=== PATIENT | female | born 1940 | race Caucasian/White ===

== ENCOUNTER 2022-09-07 16:37 | Emergency (ER) | payer OTHER ==
[2022-09-07 18:24] LABS: Urine Blood Negative (Negative); Urine Glucose Negative (Negative); Urine Protein Negative (Negative); Urine Specific Gravity <=1.005 (1.005-1.030); Urine pH 5.5 (5.0-7.0)
[2022-09-07 18:38] LABS: Absolute Lymphocytes (CBC) 2.8 K/uL (0.7-4.9); Hematocrit 36.8 % (36.0-45.0); Lymphocytes % 28.4 % (15.3-44.8); MCV 87.7 fL (80-100); MPV 7.8 fL (7.6-11.3); RBC Red Blood Cell Count 4.19 M/uL (3.86-4.86)
[2022-09-07 18:50] LABS: Magnesium 1.5 mg/dL (1.8-2.4); Potassium 3.5 mmol/L (3.5-5.1)
[2022-09-07 18:55] LABS: Urine Bacteria >50 /HPF (<20); Urine RBC <5 /HPF (None Seen)
--- NOTE | 2022-09-07 19:09 | RAD REPORT ---
EXAM DESCRIPTION: CT - Head Brain Wo Cont - 09/07/2022 6:47 pm CLINICAL HISTORY: Dizziness COMPARISON: None TECHNIQUE: Computed axial tomography of the head was obtained. IV contrast was not requested. All CT scans are performed using dose optimization technique as appropriate and may include automated exposure control or mA/KV adjustment according to patient size. FINDINGS: An intracranial bleed is not seen . The ventricles are normal in caliber. No extra-axial fluid collection is noted. Mild low-density areas within periventricular, deep and subcortical white matter likely represent isc hemic changes secondary to small vessel disease. Course basal ganglia calcifications are benign Fluid within the sinuses/ mastoids is not seen. IMPRESSION: No acute intracranial abnormality is seen. If patient's symptoms persist MRI of the bra in would be recommended.
--- NOTE | 2022-09-07 19:17 | RAD REPORT ---
EXAM DESCRIPTION: Michele Single View09/07/2022 6:55 pm CLINICAL HISTORY: Chest pain COMPARISON: 2008 FINDINGS: The left lateral costophrenic sulcus is not included in the field of view and is not evalu ated. The visualized lungs appear clear of acute infiltrate. The heart is normal size IMPRESSION: No acute abnormalities displayed
[2022-09-07] MEDS ORDERED: CEFTRIAXONE 1000 MG/VIAL ONE (19:44)
[2022-09-07] MEDS ORDERED: MAGNESIUM SULFATE 1 gm IVPB 1 GM/100 ML BAG IV ONE (19:44)
[2022-09-07] MEDS ORDERED: NA CHLORIDE 0.9% 250 ML ONE (19:44)
--- NOTE | 2022-09-07 20:33 | ER ---
Nurse's Notes [facility] Name: Lorena Canas Age: 82 yrs Sex: Female : 1940 Arrival Date: 09/07/2022 Time: 16:55 Bed 20 Private MD: lAex Garcia C Diagnosis: Dizziness and giddiness;Hypomagnesemia;UTI/ Urinary tract infection, site not specified Presentation: 09/07 17:04 Chief complaint: Patient states: Dr. Garcia sent her over here becausee she has been 5 feeling dizzy on and off x3 days and is a diabetic. Coronavirus screen: Vaccine status: Patient reports receiving the 2nd dose of the covid vaccine. Client denies travel out of the [place] in the last 14 days. At this time, the client does not indicate any symptoms associated with coronavirus-19. Ebola Screen: Patient negative for fever greater than or equal to 101.5 degrees Fahrenheit, and additional compatible Ebola Virus Disease symptoms Patient denies exposure to infectious person. Patient denies travel to an Ebola-affected area in the 21 days before illness onset. Initial Sepsis Screen: Does the patient meet any 2 criteria? No. Patient's initial sepsis screen is negative. Does the patient have a suspected source of infection? No. Patient's initial sepsis screen is negative. Risk Assessment: Do you want to hurt yourself or someone else? Patient reports no desire to harm self or others. Onset of symptoms was September 04, 2022. 17:04 Method Of Arrival: Ambulatory [facility] 17:04 Acuity: RHONDA 3 jh5 Triage Assessment: 17:06 General: Appears in no apparent distress. comfortable, slender, well groomed, well jh5 developed, well nourished, Behavior is calm, cooperative, appropriate for age. Pain: Denies pain. Historical: - Allergies: 17:06 No Known Allergies; jh5 - PMHx: 17:06 Diabetes mellitus; jh5 - PSHx: 17:06 gallbladder; hysterectomy; jh5 - Immunization history:: Adult Immunizations up to date. - Social history:: Smoking status: Patient reports the use of cigarette tobacco products, Patient/guardian denies using tobacco, the patient reports quitting approximately 35 years ago. Screenin:06 Abuse screen: Denies threats or abuse. Nutritional screening: No deficits noted. Tuberculosis screening: No symptoms or risk factors identified. Fall Risk None identified. Assessment: 19:36 General: Appears in no apparent distress. comfortable, Behavior is calm, cooperative. kl Pain: Denies pain. Neuro: No deficits noted. Denies weakness dizziness. Cardiovascular: No deficits noted. Respiratory: No deficits noted. GI: No deficits noted. No signs and/or symptoms were reported involving the gastrointestinal system. : No deficits noted. No signs and/or symptoms were reported regarding the genitourinary system. EENT: No deficits noted. No signs and/or symptoms were reported regarding the EENT system. 19:37 Reassessment: Patient states feeling better. Patient states symptoms have improved. 21:06 Reassessment: Patient appears in no apparent distress at this time. Patient and/or kl family updated on plan of care and expected duration. Pain level reassessed. Patient is alert, oriented x 3, equal unlabored respirations, skin warm/dry/pink. Vital Signs: 17:04 BP 139 / 91; Pulse 77; Resp 16; Temp 97.6; Pulse Ox 100% ; Weight 60.78 kg; Height 5 [facility] ft. 7 in. (170.18 cm); Pain 0/10; 19:12 BP 140 / 68 LA Supine (auto/pedi); Pulse 83 MON; Pulse Ox 100% on R/A; ds4 19:15 BP 141 / 75 LA Sitting (auto/pedi); Pulse 84 MON; Pulse Ox 99% on R/A; ds4 19:22 BP 128 / 62 LA Standing (auto/pedi); Pulse 92 MON; Pulse Ox 97% on R/A; ds4 19:37 BP 124 / 72; Pulse 78; Resp 16; Pulse Ox 99% on R/A; Pain 0/10; kl 21:06 BP 122 / 59; Pulse 72; Resp 18; Pulse Ox 98% on R/A; Pain 0/10; kl 17:04 Body Mass Index 20.99 (60.78 kg, 170.18 cm) [facility] ED Course: 16:55 Patient arrived in ED. am2 16:56 Alex Garcia MD is Private Physician. am2 17:06 Triage completed. [facility] 17:06 Arm band placed on right wrist. [facility] 17:28 Sal Trevino, RN is Primary Nurse. bp 17:40 Page, Dimitri, PA is PHCP. cp 17:40 Dimitri Singleton MD is Attending Physician. cp 18:45 Head Brain Wo Cont Sent. bp 18:45 CT Head Brain wo Cont Sent. bp 18:45 XRAY Chest (1 view) Sent. bp 18:49 Head Brain Wo Cont In Process Unspecified. EDMS 18:57 XRAY Chest (1 view) In Process Unspecified. EDMS 20:31 Alex Garcia MD is Referral Physician. cp 21:09 Patient has correct armband on for positive identification. kl 21:09 No provider procedures requiring assistance completed. IV discontinued, intact, kl bleeding controlled, No redness/swelling at site. Pressure dressing applied. Administered Medications: 19:50 Drug: Rocephin - (cefTRIAXone) 1 grams Route: IVPB; Infused Over: 30 mins; Site: right kl wrist; 19:50 Drug: NS 0.9% 250 ml Route: IV; Rate: bolus; Site: right wrist; kl 20:31 Follow up: IV Status: Completed infusion; IV Intake: 2250ml kl 20:31 Drug: Magnesium Sulfate 1 grams Route: IVPB; Infused Over: 1 hrs; Site: right wrist; kl 21:06 Follow up: IV Status: Completed infusion; IV Intake: 100ml kl Medication: 21:06 VIS not applicable for this client. kl Intake: 20:31 IV: 2250ml; Total: 2250ml. kl 21:06 IV: 100ml; Total: 2350ml. kl Outcome: 20:32 Discharge ordered by MD. cp 21:07 Discharged to home ambulatory. kl 21:07 Condition: improved 21:07 Discharge instructions given to patient, Instructed on discharge instructions, follow up and referral plans. medication usage, Demonstrated understanding of instructions, follow-up care, medications, Prescriptions given X 1. 21:09 Patient left the ED. kl Addendum: 09/10/2022 07:09 Addendum: Culture Results: Positive urine culture. No further action required. Bacteria e b sensitive to prescribed antibiotic. Signatures: Dispatcher [employer] EDMS Frances Joiner RN RN kl Swanson, Donovan ds4 Dimitri Sharma PA PA cp Moreno, Amanda am2 Sal Trevino RN RN bp Lebron, Harika eb Cordell, Tiffanie, RN RN jh5
--- NOTE | 2022-09-07 20:33 | EDPHYS ---
Physician Documentation [facility] Name: Lorena Canas Age: 82 yrs Sex: Female : 1940 Arrival Date: 09/07/2022 Time: 16:55 Bed 20 Private MD: Alex Garcia C ED Physician Dimitri Singleton HPI: 09/07 18:05 This 82 yrs old Female presents to ER via Ambulatory with complaints of Dizziness, cp lightheaded. 18:05 The patient presents with lightheadedness, feeling off balance. Onset: The cp symptoms/episode began/occurred 3 day(s) ago. Context: just prior to the episode the patient experienced no apparent symptoms. Associated signs and symptoms: Pertinent negatives: abdominal pain, chest pain, focal weakness, fever, weakness. Severity of symptoms: in the emergency department the symptoms have improved moderately. Patient's baseline: Neuro: alert and fully oriented, Motor: no deficits, Ambulation: walks without assistance, Speech: normal. 18:05 Patient reports she was referred to ED for evaluation by DR Garcia and to check for cp possible UTI. Historical: - Allergies: 17:06 No Known Allergies; jh5 - PMHx: 17:06 Diabetes mellitus; jh5 - PSHx: 17:06 gallbladder; hysterectomy; 5 - Immunization history:: Adult Immunizations up to date. - Social history:: Smoking status: Patient reports the use of cigarette tobacco products, Patient/guardian denies using tobacco, the patient reports quitting approximately 35 years ago. ROS: 18:10 Constitutional: Negative for body aches, chills, fever, poor PO intake. cp 18:10 Eyes: Negative for injury, pain, redness, and discharge. cp 18:10 ENT: Negative for drainage from ear(s), ear pain, sore throat, difficulty swallowing, difficulty handling secretions. 18:10 Cardiovascular: Negative for chest pain, edema, palpitations. 18:10 Respiratory: Negative for cough, shortness of breath, wheezing. 18:10 Abdomen/GI: Negative for abdominal pain, nausea, vomiting, and diarrhea, constipation, black/tarry stool, rectal bleeding. 18:10 Back: Negative for pain at rest, pain with movement. 18:10 Skin: Negative for cellulitis, rash. 18:10 Neuro: Positive for dizziness, Negative for altered mental status, headache, numbness, syncope, near syncope, weakness. 18:10 All other systems are negative. Exam: 18:15 Constitutional: The patient appears in no acute distress, alert, awake, comfortable, cp non-diaphoretic, non-toxic, well developed, well nourished. 18:15 Head/Face: Normocephalic, atraumatic. cp 18:15 Eyes: Periorbital structures: appear normal, Conjunctiva: normal, no exudate, no injection, Sclera: no appreciated abnormality, Lids and lashes: appear normal, bilaterally. 18:15 ENT: External ear(s): are unremarkable, Nose: is normal, Mouth: Lips: moist, Oral mucosa: pink and intact, moist, Posterior pharynx: Airway: no evidence of obstruction, patent, erythema, is not appreciated, exudate, is not appreciated. 18:15 Neck: ROM/movement: is normal, is supple, without pain, no range of motions limitations, no meningismus, no nuchal rigidity. 18:15 Chest/axilla: Inspection: normal. 18:15 Cardiovascular: Rate: normal, Rhythm: regular, Edema: is not appreciated, JVD: is not appreciated. 18:15 Respiratory: the patient does not display signs of respiratory distress, Respirations: normal, no use of accessory muscles, no retractions, labored breathing, is not present, Breath sounds: are clear throughout, no decreased breath sounds, no stridor, no wheezing. 18:15 Abdomen/GI: Inspection: abdomen appears normal, Palpation: abdomen is soft and non-tender, in all quadrants. 18:15 Back: pain, is absent, ROM is normal. 18:15 Skin: cellulitis, is not appreciated, no rash present. 18:15 Neuro: Orientation: to person, place \T\ time. Mentation: is normal, Cerebellar function: Romberg testing is negative, normal finger to nose testing, heel to lara testing is normal, Motor: moves all fours, strength is normal, Sensation: is normal. 18:30 ECG was reviewed by the Attending Physician. cp Vital Signs: 17:04 BP 139 / 91; Pulse 77; Resp 16; Temp 97.6; Pulse Ox 100% ; Weight 60.78 kg; Height 5 jh5 ft. 7 in. (170.18 cm); Pain 0/10; 19:12 BP 140 / 68 LA Supine (auto/pedi); Pulse 83 MON; Pulse Ox 100% on R/A; ds4 19:15 BP 141 / 75 LA Sitting (auto/pedi); Pulse 84 MON; Pulse Ox 99% on R/A; ds4 19:22 BP 128 / 62 LA Standing (auto/pedi); Pulse 92 MON; Pulse Ox 97% on R/A; ds4 19:37 BP 124 / 72; Pulse 78; Resp 16; Pulse Ox 99% on R/A; Pain 0/10; kl 21:06 BP 122 / 59; Pulse 72; Resp 18; Pulse Ox 98% on R/A; Pain 0/10; kl 17:04 Body Mass Index 20.99 (60.78 kg, 170.18 cm) [facility] MDM: 17:40 Patient medically screened. cp 20:32 Data reviewed: vital signs, nurses notes, lab test result(s), EKG, radiologic studies, cp CT scan, plain films. 20:32 Differential diagnosis: cardiac arrhythmia, CVA, generalized weakness, GI bleed, cp hypovolemia, idiopathic dizziness. Test interpretation: by ED physician or midlevel provider: ECG, plain radiologic studies. Counseling: I had a detailed discussion with the patient and/or guardian regarding: the historical points, exam findings, and any diagnostic results supporting the discharge/admit diagnosis, lab results, radiology results, to return to the emergency department if symptoms worsen or persist or if there are any questions or concerns that arise at home. 20:32 ED course: VSS. Patient appears non-toxic. Will discharge to home for continued cp monitoring. 09/07 17:48 Order name: Basic Metabolic Panel; Complete Time: 19:31 cp 09/07 19:31 Interpretation: Normal except: GLUC 151; BUN 37; GFR 41. cp 09/07 17:48 Order name: CBC with Diff; Complete Time: 19:31 cp 09/07 17:48 Order name: Magnesium; Complete Time: 19:31 cp 09/07 19:32 Interpretation: Abnormal: MG 1.5. cp 09/07 17:48 Order name: Troponin HS; Complete Time: 19:31 cp 09/07 17:48 Order name: Urine Microscopic Only; Complete Time: 19:31 cp 09/07 19:32 Interpretation: Normal except: UWBC 20-50; UBACT >50. cp 09/07 18:24 Order name: Urine Dipstick-Ancillary; Complete Time: 19:31 EDMS 09/07 17:48 Order name: XRAY Chest (1 view); Complete Time: 19:31 cp 09/07 17:48 Order name: EKG; Complete Time: 17:49 cp 09/07 17:48 Order name: CT Head Brain wo Cont cp 09/07 17:53 Order name: Head Brain Wo Cont; Complete Time: 19:31 EDMS 09/07 19:32 Interpretation: Report reviewed. cp 09/07 18:59 Order name: Urine Culture EDMS 09/07 17:48 Order name: Cardiac monitoring; Complete Time: 18:38 cp 09/07 17:48 Order name: EKG - Nurse/Tech; Complete Time: 18:38 cp 09/07 17:48 Order name: IV Saline Lock; Complete Time: 18:38 cp 09/07 17:48 Order name: Labs collected and sent; Complete Time: 18:38 cp 09/07 17:48 Order name: O2 Per Protocol; Complete Time: 18:38 cp 09/07 17:48 Order name: O2 Sat Monitoring; Complete Time: 18:38 cp 09/07 17:48 Order name: Urine Dipstick-Ancillary (obtain specimen); Complete Time: 18:38 cp 09/07 17:48 Order name: Orthostatics; Complete Time: 19:20 cp EC:30 Rate is 80 beats/min. Rhythm is regular. MI interval is prolonged at 200 msec. QRS cp interval is normal. QT interval is normal. T waves are Inverted in leads aVL, aVR. Interpreted by me. Reviewed by me. Administered Medications: 19:50 Drug: Rocephin - (cefTRIAXone) 1 grams Route: IVPB; Infused Over: 30 mins; Site: right kl wrist; 19:50 Drug: NS 0.9% 250 ml Route: IV; Rate: bolus; Site: right wrist; kl 20:31 Follow up: IV Status: Completed infusion; IV Intake: 2250ml kl 20:31 Drug: Magnesium Sulfate 1 grams Route: IVPB; Infused Over: 1 hrs; Site: right wrist; kl 21:06 Follow up: IV Status: Completed infusion; IV Intake: 100ml kl Disposition Summary: 09/07/22 20:32 Discharge Ordered Location: Home cp Problem: new cp Symptoms: have improved cp Condition: Stable cp Diagnosis - Dizziness and giddiness cp - Hypomagnesemia cp - UTI/ Urinary tract infection, site not specified cp Followup: cp - With: Alex Garcia MD - When: 2 - 3 days - Reason: Recheck today's complaints Discharge Instructions: - Discharge Summary Sheet cp - Dizziness cp - Hypomagnesemia cp - Urinary Tract Infection, Adult cp Forms: - Medication Reconciliation Form cp - Thank You Letter cp - Antibiotic Education cp - Prescription Opioid Use cp Prescriptions: - cefpodoxime 200 mg Oral Tablet - take 1 tablet by ORAL route every 12 hours for 7 days with food; 14 tablet; cp Refills: 0, Product Selection Permitted Addendum: 09/12/2022 04:02 Co-signature as Attending Physician, Dimitri Singleton MD I agree with the assessment and c hendrix plan of care. Signatures: Dispatcher [employer] Frances Butler, RN Dimitri Conard MD MD cha Page, Corey, PA PA Tiffanie Howe, RN RN jh5
[2022-09-07 21:14] VITALS: TEMP 97.6
[2022-09-07 21:20] VITALS: BP 122/59; O2SAT 98
--- NOTE | 2022-09-09 16:57 | EKG ---
Test Date: 2022-09-07 Test Time: 18:23:25 Signals Collector/Analyst: BP MEASUREMENT RESULTS: Intervals: Rate: 80 IA: 200 QRSD: 72 QT: 380 QTc: 438 [place]: P: 77 IA: 200 QRS: 62 T: 87 INTERPRETIVE STATEMENTS: Normal sinus rhythm Septal infarct, age undetermined Abnormal ECG Compared to ECG 07/10/2009 01:46:04 Myocardial infarct finding now present Electronically Signed On 09-09-22 16:54:08 CDT by Walker Downey
== END 2022-09-07 21:09 | disposition home or self-care (01) ==
LOC: ER 16:37
DX: N39.0 Urinary tract infection, site not specified (principal); E83.42 Hypomagnesemia; E11.9 Type 2 diabetes mellitus without complications
CPT/HCPCS: 96365; 96367; 93005; 87088; 85025; 87086; 80048; 36415; 83735; 87077; 87186; 84484; 70450; 71045; 96375; 99283; J3475; J7050; 81003; 81015

== ENCOUNTER 2022-09-13 08:00 | Emergency (ER) | payer OTHER ==
--- NOTE | 2022-09-13 09:20 | ER ---
Nurse's Notes [facility] Name: Lorena Canas Age: 82 yrs Sex: Female : 1940 Arrival Date: 09/13/2022 Time: 08:04 Bed 8 Private MD: Diagnosis: Hypoglycemia, unspecified Presentation: 09/13 08:07 Chief complaint: EMS states: Patient arrives via EMS c/o low blood sugar. Per EMS mb8 patient was home alone so she had to have called 911 before her BGL dropped to low. Upon arrival, patient had weakness and slurred speech. After placing 18ga IV in L AC, EMS gave 150ml of D10 and patient symptoms resolved. Patient reports she has not been eating well at home but still taking her insulin. EMS reports family showed up on scene and said patient's glucometers were so they know she has not been checking her BGL. Coronavirus screen: Vaccine status: Patient reports receiving the 2nd dose of the covid vaccine. Ebola Screen: Patient negative for fever greater than or equal to 101.5 degrees Fahrenheit, and additional compatible Ebola Virus Disease symptoms Patient denies exposure to infectious person. Patient denies travel to an Ebola-affected area in the 21 days before illness onset. Initial Sepsis Screen: Does the patient meet any 2 criteria? No. Patient's initial sepsis screen is negative. Does the patient have a suspected source of infection? No. Patient's initial sepsis screen is negative. Risk Assessment: Do you want to hurt yourself or someone else? Patient reports no desire to harm self or others. Onset of symptoms was September 13, 2022. Care prior to arrival: Medication(s) given: d10 150ml IV initiated. 18 GA, in the left antecubital area. 08:07 Method Of Arrival: EMS: [facility] mb8 08:07 Acuity: RHONDA 3 mb8 Triage Assessment: 08:11 General: Appears in no apparent distress. comfortable, Behavior is calm, cooperative, mb8 appropriate for age. Pain: Denies pain. Neuro: No deficits noted. Historical: - Allergies: 08:11 No Known Allergies; mb8 - PMHx: 08:11 diabetes mellitus; mb8 - PSHx: 08:11 GALLBLADDER; hysterectomy; mb8 - Social history:: Smoking status: Patient denies any tobacco usage or history of. Screenin:13 Abuse screen: Denies threats or abuse. Denies injuries from another. Nutritional mb8 screening: No deficits noted. Tuberculosis screening: No symptoms or risk factors identified. Fall Risk No fall in past 12 months (0 pts). Secondary diagnosis (15 points) IV access (20 points). Ambulatory Aid- None/Bed Rest/Nurse Assist (0 pts). Gait- Normal/Bed Rest/Wheelchair (0 pts) Mental Status- Oriented to own ability (0 pts). Total Mccarty Fall Scale indicates Low Risk Score (25-44 pts). Fall prevention measures have been instituted. Side Rails Up X 2 As available Patient and Family Educated on Fall Prevention Program and strategies. Assessment: 08:12 Neuro: Level of Consciousness is awake, alert, obeys commands, Oriented to person, mb8 place, time, situation, Can Line Operator are equal bilaterally Moves all extremities. Full function Gait is steady, Speech is normal, Facial symmetry appears normal, Denies weakness dizziness, difficulty swallowing, numbness headache photophobia diplopia. Cardiovascular: No deficits noted. Denies chest pain, diaphoresis, fatigue, lightheadedness, shortness of breath, Chest pain is denied. Respiratory: No deficits noted. Vital Signs: 08:07 BP 135 / 63; Pulse 78; Resp 16; Temp 97.8; Pulse Ox 100% on R/A; mb8 09:45 BP 119 / 54; Pulse 75; Resp 15; Temp 98; Pulse Ox 100% ; Pain 0/10; mb8 ED Course: 08:04 Patient arrived in ED. rg4 08:06 Erwin Mcdowell RN is Primary Nurse. mb8 08:09 Evgeny Fall DO is Attending Physician. ms3 08:11 Triage completed. mb8 08:12 Arm band placed on. mb8 08:13 Patient has correct armband on for positive identification. Placed in gown. Bed in low mb8 position. Call light in reach. Side rails up X2. Client placed on continuous cardiac and pulse oximetry monitoring. NIBP monitoring applied. alarm security or surveillance monitor on. 08:13 No provider procedures requiring assistance completed. Inserted saline lock: 18 gauge mb8 in left antecubital area, using aseptic technique. ,using aseptic technique. EMS started. 09:19 Alex Garcia MD is Referral Physician. ms3 09:50 IV discontinued, intact, bleeding controlled, No redness/swelling at site. Pressure mb8 dressing applied. Administered Medications: No medications were administered Medication: 08:13 VIS not applicable for this client. mb8 Outcome: 09:20 Discharge ordered by . ms3 09:51 Discharged to home ambulatory, with family. mb8 09:51 Condition: stable 09:51 Discharge instructions given to patient, family, Instructed on discharge instructions, follow up and referral plans. Demonstrated understanding of instructions, follow-up care. 09:52 Patient left the ED. mb8 Signatures: Yoli Cuenca rg4 Evgeny Fall DO DO ms3 Erwin Mcdowell, RN RN mb8 Corrections: (The following items were deleted from the chart) 09:51 09:51 BP 119 / 54; Pulse 75bpm; Resp 15bpm; Pulse Ox 100%; Temp 98F; Pain 0/10; mb8 mb8
--- NOTE | 2022-09-13 09:20 | EDPHYS ---
Physician Documentation [facility] Name: Lorena Canas Age: 82 yrs Sex: Female : 1940 Arrival Date: 09/13/2022 Time: 08:04 Bed 8 Private MD: ED Physician Evgeny Fall HPI: 09/13 09:20 This 82 yrs old Female presents to ER via EMS with complaints of hypoglycemia. ms3 09:20 The patient or guardian reports hypoglycemia. Onset: The symptoms/episode ms3 began/occurred this morning. Associated signs and symptoms: Pertinent positives: Pertinent negatives: nausea, vomiting. Current symptoms: In the emergency department the patient's symptoms have resolved. 82-year-old female presents via EMS for hypoglycemia. On EMS arrival patient's glucose was in the 50s. Patient was administered glucose. Patient's daughter states patient had similar episode yesterday as patient is taking her evening dose of insulin and not eating dinner. At this time patient is without pain. Patient without alleviating or inciting factors.. Historical: - Allergies: 08:11 No Known Allergies; mb8 - PMHx: 08:11 diabetes mellitus; mb8 - PSHx: 08:11 GALLBLADDER; hysterectomy; mb8 - Social history:: Smoking status: Patient denies any tobacco usage or history of. ROS: 09:20 Constitutional: Negative for fever, and chills. Neck: Negative for injury, pain, and ms3 swelling, Cardiovascular: Negative for chest pain, and palpitations. Respiratory: Negative for shortness of breath, cough, wheezing, and pleuritic chest pain, Abdomen/GI: Negative for abdominal pain, nausea, vomiting, diarrhea, and constipation, Skin: Negative for injury, rash, and discoloration. 09:20 All other systems are negative. Exam: 09:20 Constitutional: This is a well developed, well nourished patient who is awake, alert, ms3 and in no acute distress. Head/Face: Normocephalic, atraumatic. Neck: Trachea midline, no cervical lymphadenopathy. Supple, full range of motion without nuchal rigidity, or vertebral point tenderness. No Meningismus. Chest/axilla: Normal chest wall appearance and motion. Nontender with no deformity. Cardiovascular: Regular rate and rhythm with a normal S1 and S2. No gallops, murmurs, or rubs. Normal PMI, no JVD. No pulse deficits. Respiratory: Lungs have equal breath sounds bilaterally, clear to auscultation and percussion. No rales, rhonchi or wheezes noted. No increased work of breathing, no retractions or nasal flaring. Abdomen/GI: Soft, non-tender, with normal bowel sounds. No distension or tympany. No guarding or rebound. No evidence of tenderness throughout. Skin: Warm, dry with normal turgor. Normal color with no rashes, no lesions, and no evidence of cellulitis. MS/ Extremity: Pulses equal, no cyanosis. Neurovascular intact. Full, normal range of motion. Neuro: Awake and alert, GCS 15, oriented to person, place, time, and situation. Cranial nerves II-XII grossly intact. Motor strength 5/5 in all extremities. Sensory grossly intact. Cerebellar exam normal. Normal gait. Psych: Awake, alert, with orientation to person, place and time. Behavior, mood, and affect are within normal limits. Vital Signs: 08:07 BP 135 / 63; Pulse 78; Resp 16; Temp 97.8; Pulse Ox 100% on R/A; mb8 09:45 BP 119 / 54; Pulse 75; Resp 15; Temp 98; Pulse Ox 100% ; Pain 0/10; mb8 MDM: 08:32 Patient medically screened. ms3 09:20 ED course: Discussed case with Dr. Garcia and he will follow patient up in his office. ms3 Informed patient and her daughter that I spoke with Dr. Garcia. Informed her that both Dr. Garcia and I are concerned with patient's safety at home and suggest 24-hour care. Discussed with patient's daughter patient is to discontinue taking insulin and for her to remove insulin and insulin pens from patient's residence. Patient's daughter voices understanding. Patient and her daughter understand and agree with plan. Patient has an appointment made with Dr. Garcia at 515 on Sunday. Patient remains alert and oriented x4, in no apparent distress, nontoxic, ambulatory in the emergency department.. 09:20 Data reviewed: vital signs, nurses notes, lab test result(s), and as a result, I will ms3 discharge patient. Counseling: I had a detailed discussion with the patient and/or guardian regarding: the historical points, exam findings, and any diagnostic results supporting the discharge/admit diagnosis, lab results, the need for outpatient follow up, to return to the emergency department if symptoms worsen or persist or if there are any questions or concerns that arise at home. 09/13 08:16 Order name: Glucose, Ancillary Testing; Complete Time: 08:24 EDMS 09/13 08:20 Order name: Blood Glucose Level; Complete Time: 08:21 mb8 Administered Medications: No medications were administered Disposition Summary: 09/13/22 09:20 Discharge Ordered Location: Home ms3 Condition: Stable ms3 Diagnosis - Hypoglycemia, unspecified ms3 Followup: ms3 - With: Alex Garcia MD - When: Next week - Reason: Re-evaluation by your physician Discharge Instructions: - Discharge Summary Sheet ms3 - Hypoglycemia ms3 Forms: - Medication Reconciliation Form ms3 - Thank You Letter ms3 - Antibiotic Education ms3 - Prescription Opioid Use ms3 Signatures: Evgeny Fall DO DO ms3 Erwin Mcdowell RN RN mb8
[2022-09-13 10:06] VITALS: O2SAT 100
[2022-09-13 10:08] VITALS: BP 119/54; TEMP 98
== END 2022-09-13 09:52 | disposition home or self-care (01) ==
LOC: ER 08:00
DX: E11.649 Type 2 diabetes mellitus with hypoglycemia without coma (principal)
CPT/HCPCS: 82947; 99284

== ENCOUNTER 2022-09-14 08:16 | Emergency (ER) | payer OTHER ==
[2022-09-14 09:02] LABS: Absolute Lymphocytes (CBC) 1.4 K/uL (0.7-4.9); Hematocrit 32.2 % (36.0-45.0); Lymphocytes % 16.2 % (15.3-44.8); MCV 88.7 fL (80-100); RBC Red Blood Cell Count 3.63 M/uL (3.86-4.86)
[2022-09-14 09:16] LABS: Albumin 3.2 g/dL (3.4-5.0); Bilirubin Total 0.4 mg/dL (0.2-1.0); Potassium 3.9 mmol/L (3.5-5.1); Protein, Total 7.2 g/dL (6.4-8.2); Troponin High Sensitivity 8.3 pg/mL (<58.9)
--- NOTE | 2022-09-14 09:27 | ER ---
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 Coronavirus bp screen: At this time, the client does not indicate any symptoms associated with coronavirus-19. Ebola Screen: No symptoms or risks identified at this time. Initial Sepsis Screen: Does the patient meet any 2 criteria? No. Patient's initial sepsis screen is negative. Does the patient have a suspected source of infection? No. Patient's initial sepsis screen is negative. Risk Assessment: Do you want to hurt yourself or someone else? Patient reports no desire to harm self or others. Onset of symptoms is unknown. Care prior to arrival: IV initiated. 18 GA, in the right antecubital area, Glucose check: 44. 08:36 Method Of Arrival: EMS: [facility] bp 08:36 Acuity: RHONDA 3 bp Triage Assessment: 08:37 General: Appears in no apparent distress. comfortable, Behavior is calm, cooperative, bp appropriate for age. Pain: Denies pain. EENT: No deficits noted. Neuro: Level of Consciousness is awake, alert, obeys commands, Oriented to Appropriate for age. Cardiovascular: No deficits noted. Respiratory: No deficits noted. GI: No signs and/or symptoms were reported involving the gastrointestinal system. : No signs and/or symptoms were reported regarding the genitourinary system. Derm: No deficits noted. Musculoskeletal: No deficits noted. Historical: - Allergies: 08:37 No Known Allergies; bp - Home Meds: 08:43 Metformin Oral [Active]; Glimepiride Oral [Active]; losartan oral [Active]; bp - PMHx: 08:37 diabetes mellitus; bp 08:43 Hypertensive disorder; bp - PSHx: 08:37 hysterectomy; GALLBLADDER; bp - Immunization history:: Adult Immunizations up to date. - Social history:: Smoking status: Patient denies any tobacco usage or history of. Screenin:41 Abuse screen: Denies threats or abuse. Denies injuries from another. Nutritional bp screening: No deficits noted. Tuberculosis screening: No symptoms or risk factors identified. Fall Risk None identified. Assessment: 08:41 General: SEE TRIAGE NOTE. bp 10:15 Reassessment: DC ON HOLD FOR IV ABX. bp 11:22 Reassessment: PT DC HOME VIA WC WITH FAMILY. bp Vital Signs: 08:36 BP 123 / 75; Pulse 80; Resp 16; Temp 98.2; Pulse Ox 99% ; bp 08:44 BP 137 / 62; Pulse 88; Resp 16; Pulse Ox 100% ; bp 10:30 BP 132 / 62; Pulse 78; Resp 12; Pulse Ox 100% ; bp 11:22 BP 125 / 59; Pulse 76; Resp 14; Pulse Ox 100% ; bp ED Course: 08:33 Patient arrived in ED. em1 08:35 Dimitri Singleton MD is Attending Physician. felipe 08:36 Sal Trevino, RN is Primary Nurse. bp 08:37 Triage completed. bp 08:37 Arm band placed on. bp 08:41 Patient has correct armband on for positive identification. Bed in low position. Call bp light in reach. Side rails up X2. 08:41 No provider procedures requiring assistance completed. Maintain EMS IV. Dressing bp intact. Good blood return noted. Site clean \T\ dry. Gauge \T\ site: 18 GA R AC. 11:22 IV discontinued, intact, bleeding controlled, No redness/swelling at site. Pressure bp dressing applied. Administered Medications: 10:25 Drug: Rocephin (cefTRIAXone) 1 grams Route: IV; Rate: per protocol; Site: right bp antecubital; 11:24 Follow up: IV Status: Completed infusion; IV Intake: 100ml bp Medication: 08:41 VIS not applicable for this client. bp Intake: 11:24 IV: 100ml; Total: 100ml. bp Outcome: 09:25 Discharge ordered by . felipe 11:22 Discharged to home via wheelchair, with family. bp 11:22 Condition: stable 11:22 Discharge instructions given to patient, family, Instructed on discharge instructions, follow up and referral plans. medication usage, Demonstrated understanding of instructions, follow-up care, medications, Prescriptions given X 1. 11:24 Patient left the ED. bp Signatures: Dimitri Singleton MD MD cha Martinez, Eric em1 Sal Trevino, RN RN bp Corrections: (The following items were deleted from the chart) 08:44 08:37 Home Meds: Unable to obtain; bp bp
--- NOTE | 2022-09-14 09:27 | EDPHYS ---
Physician Documentation [facility] Name: Lorena Canas Age: 82 yrs Sex: Female : 1940 Arrival Date: 09/14/2022 Time: 08:33 Bed 2 Private MD: ED Physician Dimitri Singleton HPI: 09/14 08:50 This 82 yrs old Female presents to ER via EMS with complaints of Low Blood felipe Sugar. 08:50 The patient or guardian reports hypoglycemia, that was potentially precipitated by no felipe particular event. Onset: The symptoms/episode began/occurred just prior to arrival, this morning. Associated signs and symptoms: Pertinent positives: ams. Current symptoms: In the emergency department the patient's symptoms have improved, moderately, is more alert. The patient has experienced similar episodes in the past, a few times. Historical: - Allergies: 08:37 No Known Allergies; bp - Home Meds: 08:43 Metformin Oral [Active]; Glimepiride Oral [Active]; losartan oral [Active]; bp - PMHx: 08:37 diabetes mellitus; bp 08:43 Hypertensive disorder; bp - PSHx: 08:37 hysterectomy; GALLBLADDER; bp - Immunization history:: Adult Immunizations up to date. - Social history:: Smoking status: Patient denies any tobacco usage or history of. ROS: 08:53 Constitutional: Negative for fever, chills, and weight loss, Eyes: Negative for injury, felipe pain, redness, and discharge, ENT: Negative for injury, pain, and discharge, Neck: Negative for injury, pain, and swelling, Cardiovascular: Negative for chest pain, palpitations, and edema, Respiratory: Negative for shortness of breath, cough, wheezing, and pleuritic chest pain, Abdomen/GI: Negative for abdominal pain, nausea, vomiting, diarrhea, and constipation, Back: Negative for injury and pain, : Negative for injury, bleeding, discharge, and swelling, MS/Extremity: Negative for injury and deformity, Skin: Negative for injury, rash, and discoloration, Psych: Negative for depression, anxiety, suicide ideation, homicidal ideation, and hallucinations, Allergy/Immunology: Negative for hives, rash, and allergies, Endocrine: Negative for neck swelling, polydipsia, polyuria, polyphagia, and marked weight changes, Hematologic/Lymphatic: Negative for swollen nodes, abnormal bleeding, and unusual bruising. 08:53 Neuro: Positive for altered mental status. Exam: 08:53 Constitutional: This is a well developed, well nourished patient who is awake, alert, felipe and in no acute distress. Head/Face: Normocephalic, atraumatic. Eyes: Pupils equal round and reactive to light, extra-ocular motions intact. Lids and lashes normal. Conjunctiva and sclera are non-icteric and not injected. Cornea within normal limits. Periorbital areas with no swelling, redness, or edema. ENT: Nares patent. No nasal discharge, no septal abnormalities noted. Tympanic membranes are normal and external auditory canals are clear. Oropharynx with no redness, swelling, or masses, exudates, or evidence of obstruction, uvula midline. Mucous membranes moist. Neck: Trachea midline, no thyromegaly or masses palpated, and no cervical lymphadenopathy. Supple, full range of motion without nuchal rigidity, or vertebral point tenderness. No Meningismus. Chest/axilla: Normal chest wall appearance and motion. Nontender with no deformity. No lesions are appreciated. Cardiovascular: Regular rate and rhythm with a normal S1 and S2. No gallops, murmurs, or rubs. Normal PMI, no JVD. No pulse deficits. Respiratory: Lungs have equal breath sounds bilaterally, clear to auscultation and percussion. No rales, rhonchi or wheezes noted. No increased work of breathing, no retractions or nasal flaring. Abdomen/GI: Soft, non-tender, with normal bowel sounds. No distension or tympany. No guarding or rebound. No evidence of tenderness throughout. Back: No spinal tenderness. No costovertebral tenderness. Full range of motion. Female : Normal external genitalia. Skin: Warm, dry with normal turgor. Normal color with no rashes, no lesions, and no evidence of cellulitis. MS/ Extremity: Pulses equal, no cyanosis. Neurovascular intact. Full, normal range of motion. Neuro: Awake and alert, GCS 15, oriented to person, place, time, and situation. Cranial nerves II-XII grossly intact. Motor strength 5/5 in all extremities. Sensory grossly intact. Cerebellar exam normal. Normal gait. Psych: Awake, alert, with orientation to person, place and time. Behavior, mood, and affect are within normal limits. 08:53 ECG was reviewed by the Attending Physician. Vital Signs: 08:36 BP 123 / 75; Pulse 80; Resp 16; Temp 98.2; Pulse Ox 99% ; bp 08:44 BP 137 / 62; Pulse 88; Resp 16; Pulse Ox 100% ; bp 10:30 BP 132 / 62; Pulse 78; Resp 12; Pulse Ox 100% ; bp 11:22 BP 125 / 59; Pulse 76; Resp 14; Pulse Ox 100% ; bp MDM: 08:35 Patient medically screened. felipe 08:54 Differential diagnosis: hypoglycemic episode. Differential Diagnosis: CVA, electrolyte felipe abnormality, hypoglycemia, TIA, UTI, volume depletion. Data reviewed: vital signs, nurses notes, lab test result(s), EKG. Data interpreted: playground monitor: rate is 88 beats/min, rhythm is regular, Pulse oximetry: on room air is 100 %. Test interpretation: by ED physician or midlevel provider: ECG, plain radiologic studies. Counseling: I had a detailed discussion with the patient and/or guardian regarding: the historical points, exam findings, and any diagnostic results supporting the discharge/admit diagnosis, lab results, the need for outpatient follow up, for definitive care, a family practitioner. 09/14 08:37 Order name: CBC with Diff; Complete Time: 09:14 felipe 09/14 08:37 Order name: Comprehensive Metabolic Panel; Complete Time: 09:25 felipe 09/14 08:37 Order name: Troponin High Sensitivity; Complete Time: 09:25 felipe 09/14 08:40 Order name: glucometer results - FOR PT WITH NO ID; Complete Time: 10:20 bp 09/14 09:56 Order name: Urine Dipstick-Ancillary; Complete Time: 10:20 EDMS 09/14 08:37 Order name: EKG; Complete Time: 08:37 felipe 09/14 08:37 Order name: EKG - Nurse/Tech; Complete Time: 09:04 felipe 09/14 08:37 Order name: Urine Dipstick-Ancillary (obtain specimen); Complete Time: 09:59 felipe 09/14 08:37 Order name: Diet Regular; Complete Time: 08:38 felipe 09/14 09:26 Order name: Misc. Order: GET UA; Complete Time: 09:59 [facility] EC:53 Rate is 86 beats/min. Rhythm is regular. QRS [place] is Normal. [place] interval is normal. QRS felipe interval is normal. QT interval is normal. No Q waves. T waves are Normal. No ST changes noted. Clinical impression: Normal ECG and No evidence of ischemia. Interpreted by me. Reviewed by me. 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 felipe - UTI/ Urinary tract infection, site not specified felipe Followup: felipe - With: Private Physician - When: 2 - 3 days - Reason: Recheck today's complaints, Continuance of care, Re-evaluation by your physician Discharge Instructions: - Discharge Summary Sheet felipe - Hypoglycemia felipe - Blood Glucose Monitoring, Adult felipe - Hypoglycemia, Mszg-vo-Ewan felipe - Urinary Tract Infection, Adult felipe - Urinary Tract Infection, Adult, Clxi-ud-Syal felipe - Preventing Hypoglycemia felipe Forms: - Medication Reconciliation Form felipe - Thank You Letter felipe - Antibiotic Education felipe - Prescription Opioid Use felipe Prescriptions: - Cipro 250 mg Oral Tablet - take 1 tablet by ORAL route every 12 hours; 10 tablet; Refills: 0, Product felipe Selection Permitted Signatures: Dispatcher [employer] Dimitri Dean MD MD cha Peltier, Brian, RN RN bp Corrections: (The following items were deleted from the chart) 08:44 08:37 Home Meds: Unable to obtain; bp bp
[2022-09-14 09:55] LABS: Urine Blood Negative (Negative); Urine Glucose Trace (Negative); Urine Protein Negative (Negative); Urine Specific Gravity <=1.005 (1.005-1.030); Urine pH 5.5 (5.0-7.0)
[2022-09-14] MEDS ORDERED: CEFTRIAXONE 1000 MG/VIAL ONE (10:22)
[2022-09-14] MEDS ORDERED: NA CHLORIDE 0.9% 100 ML IV ONE (10:22)
[2022-09-14 12:05] VITALS: TEMP 98.2
[2022-09-14 12:06] VITALS: O2SAT 100
[2022-09-14 12:09] VITALS: BP 125/59
--- NOTE | 2022-09-14 14:30 | EKG ---
Test Date: 2022-09-14 Test Time: 08:47:52 [employer]: LILI MEASUREMENT RESULTS: Intervals: Rate: 86 TN: 214 QRSD: 70 QT: 358 QTc: 428 [place]: P: 85 TN: 214 QRS: 65 T: 82 INTERPRETIVE STATEMENTS: Sinus rhythm with 1st degree AV block Septal infarct, age undetermined Abnormal ECG Compared to ECG 09/07/2022 18:23:25 First degree AV block now present Myocardial infarct finding still present Electronically Signed On 09-14-22 14:27:58 CDT by Walker Downey
== END 2022-09-14 11:24 | disposition home or self-care (01) ==
LOC: ER 08:16 → SUPCPDRO 08:16 → ER 11:24
DX: E11.649 Type 2 diabetes mellitus with hypoglycemia without coma (principal); N39.0 Urinary tract infection, site not specified; T38.3X5A Adverse effect of insulin and oral hypoglycemic [antidiabetic] drugs, initial encounter; I10 Essential (primary) hypertension
CPT/HCPCS: 36415; 80053; 81003; 82947; 84484; 85025; 93005; 96365; 99283

== ENCOUNTER 2022-09-15 07:12 | Observation (INO) | payer OTHER ==
[2022-09-15 08:05] LABS: Absolute Lymphocytes (CBC) 0.9 K/uL (0.7-4.9); Hematocrit 30.4 % (36.0-45.0); Lymphocytes % 10.6 % (15.3-44.8); MCV 87.4 fL (80-100); MPV 7.5 fL (7.6-11.3); RBC Red Blood Cell Count 3.48 M/uL (3.86-4.86)
[2022-09-15 08:22] LABS: Albumin 3.1 g/dL (3.4-5.0); Bilirubin Total 0.3 mg/dL (0.2-1.0); Potassium 3.6 mmol/L (3.5-5.1); Protein, Total 6.8 g/dL (6.4-8.2)
[2022-09-15 09:45] LABS: Urine Blood Trace-intact (Negative); Urine Glucose Negative (Negative); Urine Protein 1+ (Negative)
[2022-09-15 09:52] LABS: Urine RBC <5 /HPF (None Seen)
--- NOTE | 2022-09-15 09:58 | EDPHYS ---
Physician Documentation [facility] Name: Lorena Canas Age: 82 yrs Sex: Female : 1940 Arrival Date: 09/15/2022 Time: 07:18 Bed 13 Private MD: ED Physician Evgeny Fall HPI: 09/15 08:36 This 82 yrs old Female presents to ER via EMS with complaints of General Weakness. ms3 08:36 82-year-old female presents via [facility] for generalized weakness. Patient was ms3 seen in the emergency department the previous 2 days. Patient was diagnosed with UTI yesterday, hypoglycemia the day prior. EMS states patient presents secondary to generalized weakness. EMS notes patient's glucose to be 68 on their arrival. Patient denies pain. Patient denies alleviating or inciting factors.. Onset: The symptoms/episode began/occurred this morning. Severity of symptoms: At their worst the symptoms were very mild in the emergency department the symptoms are unchanged. The patient has experienced similar episodes in the past. Historical: - Allergies: 14:39 No Known Allergies; db - Home Meds: 07:22 Metformin Oral [Active]; losartan Oral [Active]; Cipro Oral [Active]; Glimepiride Oral db [Active]; pravastatin oral [Active]; - PMHx: 07:22 diabetes mellitus; Hypertensive disorder; Dementia; urinary tract infection; db - PSHx: 07:22 GALLBLADDER; hysterectomy; db - Immunization history:: Adult Immunizations unknown. - Social history:: Smoking status: Patient denies any tobacco usage or history of. ROS: 08:36 Neck: Negative for injury, pain, and swelling, Cardiovascular: Negative for chest pain, ms3 and palpitations. Respiratory: Negative for shortness of breath, cough, wheezing, and pleuritic chest pain, Abdomen/GI: Negative for abdominal pain, nausea, vomiting, diarrhea, and constipation, MS/Extremity: Negative for injury and deformity, Skin: Negative for injury, rash, and discoloration. 08:36 Constitutional: Positive for generalized weakness. 08:36 All other systems are negative. Exam: 08:36 Constitutional: This is a well developed, well nourished patient who is awake, alert, ms3 and in no acute distress. Head/Face: Normocephalic, atraumatic. Neck: Trachea midline, no cervical lymphadenopathy. Supple, full range of motion without nuchal rigidity, or vertebral point tenderness. No Meningismus. Chest/axilla: Normal chest wall appearance and motion. Nontender with no deformity. Cardiovascular: Regular rate and rhythm with a normal S1 and S2. No gallops, murmurs, or rubs. Normal PMI, no JVD. No pulse deficits. Respiratory: Lungs have equal breath sounds bilaterally, clear to auscultation and percussion. No rales, rhonchi or wheezes noted. No increased work of breathing, no retractions or nasal flaring. Abdomen/GI: Soft, non-tender, with normal bowel sounds. No distension or tympany. No guarding or rebound. No evidence of tenderness throughout. Skin: Warm, dry with normal turgor. Normal color with no rashes, no lesions, and no evidence of cellulitis. MS/ Extremity: Pulses equal, no cyanosis. Neurovascular intact. Full, normal range of motion. Vital Signs: 07:19 BP 147 / 64 LA Supine (auto/reg); Pulse 88; Resp 18; Temp 98.5(O); Pulse Ox 100% on db R/A; Weight 49.9 kg; Height 5 ft. 8 in. (172.72 cm); Pain 0/10; 08:45 BP 100 / 48; Pulse 77; Resp 18; Pulse Ox 100% on R/A; db 10:30 BP 140 / 62; Pulse 87; Resp 20; Pulse Ox 100% on R/A; Pain 0/10; db 12:00 BP 131 / 56; Pulse 79; Resp 18; Pulse Ox 100% ; db 07:19 Body Mass Index 16.73 (49.90 kg, 172.72 cm) db MDM: 07:44 Patient medically screened. ms3 09:58 Data reviewed: vital signs, nurses notes, lab test result(s), and as a result, I will ms3 admit patient. Test interpretation: by ED physician or midlevel provider:. Counseling: I had a detailed discussion with the patient and/or guardian regarding: the historical points, exam findings, and any diagnostic results supporting the discharge/admit diagnosis, lab results, the need for further work-up and treatment in the hospital. ED course: Discussed case with Dr Garcia. Patient in the ED for previous 2 days. Patient insulin removed from home, then metformin removed from house. Patient with hypoglycemia despite these interventions. We will place patient in observation to monitor blood glucose levels.. 09/15 07:46 Order name: Urine Microscopic Only; Complete Time: 10:55 ms3 09/15 07:46 Order name: CBC with Diff; Complete Time: 09:09 ms3 09/15 07:46 Order name: CMP; Complete Time: 09:09 ms3 09/15 09:45 Order name: Urine Dipstick-Ancillary; Complete Time: 10:55 EDMS 09/15 09:58 Order name: SARS RAPID; Complete Time: 11:44 ms3 09/15 13:19 Order name: Hemoglobin A1c EDMS Administered Medications: 09:59 CANCELLED (Physician Discretion): D10 in Water [2 mL/kg] 250 ml IVP once 7 10:18 Drug: D50W 50 ml {Note: patient given D10 in 250 due to D50 amp unavailable per db physician.} Route: IVP; Site: right antecubital; 13:49 Follow up: Response: No adverse reaction db Disposition Summary: 09/15/22 09:57 Hospitalization Ordered Hospitalization Status: Observation ms3 Provider: Alex Garcia ms3 Location: Telemetry/MedSurg (observation) ms3 Condition: Stable ms3 Problem: new ms3 Symptoms: are unchanged ms3 Bed/Room Type: Standard ms3 Room Assignment: 209(09/15/22 13:51) eb Diagnosis - Hypoglycemia, unspecified ms3 - Muscle weakness (generalized) ms3 - Dementia in other diseases classified elsewhere without behavioral disturbance ms3 - Essential (primary) hypertension ms3 Forms: - Medication Reconciliation Form ms3 - SBAR form ms3 Signatures: Dispatcher [employer] EDMS Harika Lebron eb Evgeny Fall DO DO ms3 Sona Sears RN RN Liat Nava RN [id number] Corrections: (The following items were deleted from the chart) 09:59 09:55 D10 in Water [2 mL/kg] 250 ml IVP once ordered. ms3 jl7 13:51 09:57 ms3 eb
--- NOTE | 2022-09-15 09:58 | ER ---
Nurse's Notes [facility] Name: Lorena Canas Age: 82 yrs Sex: Female : 1940 Arrival Date: 09/15/2022 Time: 07:18 Bed 13 Private MD: Diagnosis: Hypoglycemia, unspecified;Muscle weakness (generalized);Dementia in other diseases classified elsewhere without behavioral disturbance;Essential (primary) hypertension Presentation: 09/15 07:10 Onset of symptoms was September 15, 2022. db 07:19 Chief complaint: Patient states: states felt weak and difficulty ambulating this AM EMS db states: picked patient up from home with weakness not able to get out of bed. Blood glucose 68. Patient here yesterday with UTI diagnosis and glucose problem. Ebola Screen: Patient negative for fever greater than or equal to 101.5 degrees Fahrenheit, and additional compatible Ebola Virus Disease symptoms Patient denies exposure to infectious person. Patient denies travel to an Ebola-affected area in the 21 days before illness onset. No symptoms or risks identified at this time. Initial Sepsis Screen: Does the patient meet any 2 criteria? No. Patient's initial sepsis screen is negative. Does the patient have a suspected source of infection? No. Patient's initial sepsis screen is negative. Risk Assessment: Do you want to hurt yourself or someone else? Patient reports no desire to harm self or others. 07:19 Method Of Arrival: EMS: [facility] db 07:19 Acuity: RHONDA 3 db 14:15 Coronavirus screen: Vaccine status: Patient reports receiving the 2nd dose of the covid db vaccine. Triage Assessment: 07:22 General: Appears in no apparent distress. comfortable, Behavior is calm, cooperative, db appropriate for age, quiet. Pain: Denies pain. EENT: No deficits noted. No signs and/or symptoms were reported regarding the EENT system. Neuro: No deficits noted. Level of Consciousness is awake, alert, obeys commands, Oriented to person, place, time, situation, Appropriate for age Speech is normal, Facial symmetry appears normal, Reports weakness. Cardiovascular: No deficits noted. Respiratory: No deficits noted. GI: No deficits noted. No signs and/or symptoms were reported involving the gastrointestinal system. : Reports recent diagnosis of UTI. Derm: No deficits noted. No signs and/or symptoms reported regarding the dermatologic system. Musculoskeletal: No deficits noted. No signs and/or symptoms reported regarding the musculoskeletal system. Historical: - Allergies: 14:39 No Known Allergies; db - Home Meds: 07:22 Metformin Oral [Active]; losartan Oral [Active]; Cipro Oral [Active]; Glimepiride Oral db [Active]; pravastatin oral [Active]; - PMHx: 07:22 diabetes mellitus; Hypertensive disorder; Dementia; urinary tract infection; db - PSHx: 07:22 GALLBLADDER; hysterectomy; db - Immunization history:: Adult Immunizations unknown. - Social history:: Smoking status: Patient denies any tobacco usage or history of. Screenin:26 Abuse screen: Denies threats or abuse. Denies injuries from another. Nutritional db screening: No deficits noted. Tuberculosis screening: No symptoms or risk factors identified. Fall Risk None identified. No fall in past 12 months (0 pts). No secondary diagnosis (0 pts). No IV (0 pts). Ambulatory Aid- None/Bed Rest/Nurse Assist (0 pts). Gait- Weak (10 pts.). Mental Status- Overestimates/Forgets Limitations (15 pts.). Total Mccarty Fall Scale indicates Low Risk Score (25-44 pts). Fall prevention measures have been instituted. Side Rails Up X 2 Placed close to Nursing Station. Assessment: 09:50 Reassessment: Patient appears in no apparent distress at this time. provided patient db with sandwich, juice and crackers. 09:56 Reassessment: Assisted patient to bedside commode. Obtained urine specimine. db 10:30 Reassessment: Patient tolerated all sandwich crackers and juice. db 12:15 Reassessment: Patient is alert, oriented x 3, equal unlabored respirations, skin db warm/dry/pink. Patient eating Patient states feeling better. Patient states symptoms have improved. General: Appears in no apparent distress. comfortable, Behavior is calm, cooperative, appropriate for age, quiet. Pain: Denies pain. Neuro: No deficits noted. Level of Consciousness is awake, alert, obeys commands, Oriented to person, place, time, situation, Appropriate for age. Cardiovascular: No deficits noted. Respiratory: No deficits noted. GI: No deficits noted. 13:15 Reassessment: Patient appears in no apparent distress at this time. Patient and/or db family updated on plan of care and expected duration. Pain level reassessed. Patient is alert, oriented x 3, equal unlabored respirations, skin warm/dry/pink. 14:15 Reassessment: Patient appears in no apparent distress at this time. No changes from db previously documented assessment. Patient and/or family updated on plan of care and expected duration. Pain level reassessed. Patient is alert, oriented x 3, equal unlabored respirations, skin warm/dry/pink. Patient states feeling better. Patient states symptoms have improved. Vital Signs: 07:19 BP 147 / 64 LA Supine (auto/reg); Pulse 88; Resp 18; Temp 98.5(O); Pulse Ox 100% on db R/A; Weight 49.9 kg; Height 5 ft. 8 in. (172.72 cm); Pain 0/10; 08:45 BP 100 / 48; Pulse 77; Resp 18; Pulse Ox 100% on R/A; db 10:30 BP 140 / 62; Pulse 87; Resp 20; Pulse Ox 100% on R/A; Pain 0/10; db 12:00 BP 131 / 56; Pulse 79; Resp 18; Pulse Ox 100% ; db 07:19 Body Mass Index 16.73 (49.90 kg, 172.72 cm) db ED Course: 07:18 Patient arrived in ED. db 07:18 Evgeny Fall DO is Attending Physician. ms3 07:18 Sona Sears, RN is Primary Nurse. db 07:22 Triage completed. db 07:26 Arm band placed on right wrist. db 07:45 Maintain EMS IV. Dressing intact. Gauge \T\ site: 20G Right AC. IV is patent, is intact, db Flushed right antecubital with 5 ml normal saline. 07:55 Initial lab(s) drawn, by me, sent to lab. db 09:57 Alex Garcia MD is Hospitalizing Provider. ms3 14:15 Patient has correct armband on for positive identification. Placed in gown. Bed in low db position. Side rails up X 1. 14:15 No provider procedures requiring assistance completed. Patient admitted, IV remains in db place. Administered Medications: 09:59 CANCELLED (Physician Discretion): D10 in Water [2 mL/kg] 250 ml IVP once jl7 10:18 Drug: D50W 50 ml {Note: patient given D10 in 250 due to D50 amp unavailable per db physician.} Route: IVP; Site: right antecubital; 13:49 Follow up: Response: No adverse reaction db Medication: 14:15 VIS not applicable for this client. db Outcome: 09:57 Decision to Hospitalize by Provider. ms3 14:45 Admitted to accompanied by tech. db 14:45 Condition: stable 14:45 Instructed on the need for admit. 14:53 Patient left the ED. eb Signatures: Harika Lebron Marcus, DO DO ms3 Sona Sears, RN RN Liat Nava RN jl7
[2022-09-15] MEDS ORDERED: D10W 250 ML IV ONE (10:18)
[2022-09-15 11:10] LABS: SARS-CoV-2 Antigen Rapid Res Negative (Negative)
[2022-09-15 15:06] VITALS: O2SAT 100
[2022-09-15 15:29] LABS: Folic Acid, (Folate) 12.7 ng/mL (3.1-17.5); Thyroid Stimulating Hormone 1.16 uIU/mL (0.360-3.740)
[2022-09-15 15:32] VITALS: BMI 20.9
[2022-09-15] MEDS ORDERED: INFLUENZA VACCINE (for 6+ mo) 0.5 ML DOSE IMVAC ONE (16:00)
[2022-09-15] MEDS ORDERED: PNEUMOCOCCAL VACCINE 0.5 ML IMVAC ONE (16:00)
[2022-09-15] MEDS ORDERED: levoFLOXacin 500 MG TAB PO ONE (18:44)
[2022-09-15] MEDS ORDERED: LOSARTAN POTASSIUM 50 MG TABLET PO SCH (21:00)
[2022-09-15] MEDS ORDERED: ATORVASTATIN 10 MG TAB PO SCH (21:00)
[2022-09-16 08:27] VITALS: BP 131/61
[2022-09-16] MEDS ORDERED: ASPIRIN EC 81 MG TAB PO SCH (09:00)
[2022-09-16] MEDS ORDERED: levoFLOXacin 500 MG TAB PO SCH (09:00)
[2022-09-16] MEDS ORDERED: AMLODIPINE 5 MG TAB PO SCH (09:00)
[2022-09-16 10:12] VITALS: TEMP 97.7
--- NOTE | 2022-09-17 00:19 | HP ---
Date of Admission: 09/15/2022 Chief Complaint: Confusion. History Of Present Illness: This is an 82-year-old female patient who called the EMS on her own this morning because the patient says that she was scared and disoriented and she did not know what was g oing on, so she called EMS. Her fingerstick blood sugar by EMS was 66. She did not receive any IV g lucose or any oral glucose and she was brought into emergency room. Her blood work in emergency room done showing blood glucose of 50. After patient was evaluated, I was contacted and decided to go ead and admit the patient to hospital as this is her 3rd visit today in last 3 days to emergency room . Last week she was in the emergency room with dizziness and lightheadedness and was diagnosed with urinary tract infection and was discharged to go home with oral antibiotics. In last 3 days, which i s September 13, 2022, she came in with hypoglycemia brewery pumper and at that time, after she was treat ed in the emergency room, she was back to her normal self and she was discharged to go home with inst ruction to discontinue insulin. Yesterday, she came to emergency room with slurred speech and again hypoglycemia and this time once again, after she was to be evaluated and treated in the emergency tawny , she was back to her baseline and she was discharged to go home with instruction to discontinue gli mepiride. After her 3rd presentation in 3 days today to emergency room, decision was made to admit h er to the hospital. The patient's daughter was at bedside. Allergies: SHE IS ALLERGIC TO ENALAPRIL CAUSING COUGH, PENICILLIN CAUSING RASH, AND PROPOXYPHENE CAU SING STOMACH UPSET. Medications: Amlodipine 5 mg daily; aspirin 81 mg daily; vitamin D3 1000 units daily; glimepiride an d Levemir insulin, both were discontinued recently in last 2 days; losartan 50 mg daily; metformin 50 0 mg, she takes 2 tablets 2 times a day; pravastatin 20 mg daily in the evening; vitamin B12 1 mg adali ly. Review of Systems: COFFEE BLENDER: As mentioned above, significant for disorientation and patient has increasing memory problem an d I am concerned about underlying dementia problem, which so far has not been diagnosed, but on clini georgie basis she unfortunately has signs and symptoms of dementia. Past Medical History: Type 2 diabetes mellitus, hypertension, mixed hyperlipidemia, diverticulosis, and depression. 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 Family History: Father had abdominal aortic aneurysm. Mother had diabetes. Brother had diabetes an d hyperlipidemia. Social History: Prior history of smoking, not at present time. Use of alcohol is negative. Physical Examination: Vital Signs: Temperature 98.5, pulse 88, respiratory rate 18, blood pressure 147/64, oxygen saturati on 100%, height 5 feet 7 inches, weight 133 pounds. General: Awake, alert, oriented, not in distress. HEENT: Head atraumatic, normocephalic. Conjunctivae nonerythematous. Sclerae white. Mouth, no thr ush or edema noted. Ears/Nose, no mass, lesion, discharge noted. Neck: Supple. No JVD, lymph nodes, bruit, thyromegaly noted. Lungs: Bilateral good equal air entry. Clear to auscultation. No rhonchi. No rales. Heart: Normal heart sounds, no murmur or gallop. Abdomen: Soft, bowel sounds normal. No guarding, rigidity, tenderness, mass, hepatosplenomegaly, dis tention, or bruit noted. Extremities: No leg edema. No calf tenderness. Skin: No rash, ulcer, cellulitis. Lymphatics: No lymph node enlargement in neck, supraclavicular, infraclavicular region. Neuro: No focal neurological deficit. Chest: Unremarkable. External Genitalia: Deferred. Rectal: Deferred. Laboratory Data: White count 8.7, hemoglobin 10.6, platelets 238. Sodium 138, potassium 3.6, chlori de 106, bicarb 25, BUN 30, creatinine 0.74, glucose 50. Liver function tests unremarkable. Hemoglob in A1c done today 7.5. Vitamin B12 281. Folic acid level 12.7. TSH 1.16. Urinalysis with 1+ elisa ase, otherwise negative. COVID-19 test negative. Impression: 1.Hypoglycemia. 2.Type 2 diabetes mellitus. 3.Hypertension. 4.Mixed hyperlipidemia. 5.Diverticulosis. 6.Depression. 7.Senile dementia. Plan: Admit patient to hospital for further evaluation and management of this problem. The patient is appropriate for observation. We will go ahead and continue her home medications per order. We wi ll not give any diabetic medications. We will monitor fingerstick blood sugar, but we will not give any sliding scale insulin. I will see her again tomorrow morning for followup. Patient lives at [facility] by herself and I had a long discussion with the patient's daughter today and she informed me that t he patient does not have option of living with daughter, so she will have to continue to stay at home and the patient refuses to go to [facility]p. So, right now, the patient does not have any other o ption except to stay at home. I talked with the daughter and informed her that she should make arran gements for care provider services, especially at night time so provider can be with the patient arou nd the evening meal time and make sure that she eats her evening meal, takes her evening medications and during nighttime provider to stay with the patient and in the morning after they give breakfast a nd morning medications, provider may leave and the patient's daughter will check on her during day ti me. The patient's daughter understands and agrees with this plan and she is going to make arrangemen ts for care provider services utilizing local agency help. I have also informed the patient, in pres ence of her daughter today, that in view of her significant memory decline, I am concerned about her safety while driving and considering her safety and other people's safety in mind, she was instructed not to drive car anymore and the patient's daughter was present during this discussion and she under stands and agrees with that recommendation as well. FRANK/MODL Voice ID: [id number]
--- NOTE | 2022-09-17 05:20 | DS ---
Date of Discharge: 09/16/2022 Disposition: Discharged to go home. Physical Examination: HEENT: Unremarkable. Lungs: Clear to auscultation. Heart: Sounds normal. Abdomen: Soft. Bowel sounds normal. No guarding, rigidity, tenderness, distention. Extremities: No leg edema. Discharge Medications And Instructions: 1.Continue all prior home medication except do not take any insulin, glimepiride, and metformin. 2.Follow up at my office a week after next. Laboratory Data: COVID-19 test negative. Urinalysis 1+ leukocyte esterase, otherwise negative. Sod ium 138, potassium 3.6, chloride 106, bicarb 25, BUN 30, creatinine 0.74, glucose 50. Hemoglobin A1c 7.5. Liver function tests unremarkable. Vitamin B12 of 281, folic acid 12.7, TSH 1.16. Fingerstic k blood sugar readings reviewed. After the patient was admitted to the hospital and after initial lo w glucose when she first came to emergency room, she has not had any more hypoglycemia problem. Last blood sugar this morning was 172 before breakfast this morning. Final Diagnoses: 1.Hypoglycemia. 2.Anemia, unspecified. 3.Type 2 diabetes mellitus. 4.Hypertension. 5.Mixed hyperlipidemia. 6.Diverticulosis. 7.Depression. Hospital Course: This is an 82-year-old very pleasant female patient who was admitted to the [facility] after she came into emergency room. Please see dictated H and P for more information. Patient had hypoglycemia when she presented to emergency room, which was corrected and subsequently she was admi tted to the hospital. We monitored fingerstick blood sugar readings and she has not had any further hypoglycemia problem while she was in the hospital. Her highest glucose level was 196 and lowest lev el was 172 this morning. I did talk to patient and patient's daughter this morning and informed her that she should not take any diabetes medication at all and in the future if we need to start a diabe ginny medication, we will consider to do so. Patient is showing signs and symptoms of dementia problem . She has appointment to see a neurologist in October. As she did not keep prior appointments to [facility], so first available appointment now is October and she will keep that appointment. Marya nwhile, she continues to live at home by herself. She does not have option to live with daughter and she does not want to go to [facility], so daughter is going to make arrangements for care provider services where care provider can be present with her during nighttime and I did inform patient's kendra ghter and patient that all medication should be managed by the patient's daughter and she will keep t hose medications in pill boxes and caregiver will assist with medication adherence. I have also info rmed the patient not to drive her car, keeping in mind the safety of others as well as her own safety . Patient was discharged to go home in stable condition today. FRANK/MODL Voice ID: [id number] Report ID: [id number]
== END 2022-09-16 10:27 | disposition home or self-care (01) ==
LOC: ER 07:12 → ERHOLD 10:15 → 2ND 14:42
PROVIDERS: ADMIT Internal Medicine; ATTEND Internal Medicine
DX: E11.649 Type 2 diabetes mellitus with hypoglycemia without coma (principal); D64.9 Anemia, unspecified; I10 Essential (primary) hypertension; E78.2 Mixed hyperlipidemia; K57.90 Diverticulosis of intestine, part unspecified, without perforation or abscess without bleeding; F32.A Depression, unspecified; Z79.84 Long term (current) use of oral hypoglycemic drugs; Z79.4 Long term (current) use of insulin; Z79.82 Long term (current) use of aspirin; Z79.899 Other long term (current) drug therapy; Z88.0 Allergy status to penicillin; Z88.8 Allergy status to other drugs, medicaments and biological substances; Z87.891 Personal history of nicotine dependence; Z90.49 Acquired absence of other specified parts of digestive tract; Z90.710 Acquired absence of both cervix and uterus; Z83.3 Family history of diabetes mellitus
CPT/HCPCS: 85025; 36415; 82947 ×3; 84443; 83036; 82746; 82607; 80053; 96374; 99285; 87811; G0378 ×3; 81003; 81015

== ENCOUNTER 2022-12-15 14:07 | Emergency (ER) | payer OTHER ==
[2022-12-15] MEDS ORDERED: NA CHLORIDE 0.9% 500 ML ONE ×2 (14:52→17:17)
[2022-12-15 14:53] LABS: Absolute Lymphocytes (CBC) 1.5 K/uL (0.7-4.9); Hematocrit 36.3 % (36.0-45.0); Lymphocytes % 23.2 % (15.3-44.8); MCV 89.8 fL (80-100); RBC Red Blood Cell Count 4.04 M/uL (3.86-4.86)
[2022-12-15 15:19] LABS: ALT/SGPT 20 U/L (13-56); AST/SGOT 19 U/L (15-37); Albumin 3.5 g/dL (3.4-5.0); Alkaline Phosphatase 207 U/L (45-117); BUN Blood Urea Nitrogen 22 mg/dL (7-18); Bicarbonate 27 mmol/L (21-32); Bilirubin Total 0.6 mg/dL (0.2-1.0); Glomerular Filtration Rate 47 ml/min (=/>90); Lipase 222 U/L (73-393); Potassium 4.2 mmol/L (3.5-5.1); Sodium Level 130 mmol/L (136-145)
[2022-12-15 15:27] LABS: Glucose Level 703 mg/dL (74-106)
[2022-12-15] MEDS ORDERED: INSULIN -REGULAR HUMAN 50 UNIT/0.5 ML ML ONE (15:49)
[2022-12-15 18:07] LABS: Urine Blood Trace-lysed (Negative); Urine Glucose 2+ (Negative); Urine Protein Negative (Negative); Urine Specific Gravity 1.015 (1.005-1.030)
[2022-12-15 18:28] LABS: Urine Bacteria None Seen /HPF (<20); Urine Mucus Slight /HPF (None Seen); Urine RBC <5 /HPF (None Seen)
[2022-12-15] MEDS ORDERED: cloNIDine HCL 0.1 MG TAB ONE (18:36)
[2022-12-15 20:29] LABS: Potassium 3.1 mmol/L (3.5-5.1)
--- NOTE | 2022-12-15 20:36 | EDPHYS ---
Physician Documentation [facility] Name: Lorena Canas Age: 82 yrs Sex: Female : 1940 Arrival Date: 12/15/2022 Time: 14:10 Bed 2 Private MD: Alex Garcia C ED Physician Elver Vallecillo HPI: 12/15 14:30 This 82 yrs old Female presents to ER via Ambulatory with complaints of High Blood snw Sugar. 14:30 The patient or guardian reports hyperglycemia. Onset: The symptoms/episode snw began/occurred acutely. It is unknown whether or not the patient has had similar symptoms in the past. sees Dr. Garcia, taken off medications for DM as pt was not consistent with caloric intake.. Historical: - Allergies: 14:19 No Known Allergies; hb - Home Meds: 14:19 aspirin 81 mg Oral TbEC 1 tab once daily [Active]; Razadyne ER 8 mg oral C24P 2 caps hb once daily [Active]; - PMHx: 14:19 Dementia; diabetes mellitus; Hypertensive disorder; urinary tract infection; hb - PSHx: 14:19 GALLBLADDER; hysterectomy; hb - Immunization history:: Adult Immunizations up to date. - Social history:: Smoking status: Patient denies any tobacco usage or history of. ROS: 14:30 Constitutional: Negative for fever, chills, and weight loss, Eyes: Negative for injury, snw pain, redness, and discharge, ENT: Negative for injury, pain, and discharge, Neck: Negative for injury, pain, and swelling, Cardiovascular: Negative for chest pain, palpitations, and edema, Respiratory: Negative for shortness of breath, cough, wheezing, and pleuritic chest pain, Abdomen/GI: Negative for abdominal pain, nausea, vomiting, diarrhea, and constipation, Back: Negative for injury and pain, : Negative for injury, bleeding, discharge, and swelling, MS/Extremity: Negative for injury and deformity, Skin: Negative for injury, rash, and discoloration, Neuro: Negative for headache, weakness, numbness, tingling, and seizure, Psych: Negative for depression, anxiety, suicide ideation, homicidal ideation, and hallucinations. Exam: 14:29 Constitutional: This is a well developed, well nourished patient who is awake, alert, snw and in no acute distress. Head/Face: Normocephalic, atraumatic. Eyes: Pupils equal round and reactive to light, extra-ocular motions intact. Lids and lashes normal. Conjunctiva and sclera are non-icteric and not injected. Cornea within normal limits. Periorbital areas with no swelling, redness, or edema. ENT: Nares patent. No nasal discharge, no septal abnormalities noted. Tympanic membranes are normal and external auditory canals are clear. Oropharynx with no redness, swelling, or masses, exudates, or evidence of obstruction, uvula midline. Mucous membranes moist. Neck: Trachea midline, no thyromegaly or masses palpated, and no cervical lymphadenopathy. Supple, full range of motion without nuchal rigidity, or vertebral point tenderness. No Meningismus. Chest/axilla: Normal chest wall appearance and motion. Nontender with no deformity. No lesions are appreciated. Cardiovascular: Regular rate and rhythm with a normal S1 and S2. No gallops, murmurs, or rubs. Normal PMI, no JVD. No pulse deficits. Respiratory: Lungs have equal breath sounds bilaterally, clear to auscultation and percussion. No rales, rhonchi or wheezes noted. No increased work of breathing, no retractions or nasal flaring. Abdomen/GI: Soft, non-tender, with normal bowel sounds. No distension or tympany. No guarding or rebound. No evidence of tenderness throughout. Back: No spinal tenderness. No costovertebral tenderness. Full range of motion. Skin: Warm, dry with normal turgor. Normal color with no rashes, no lesions, and no evidence of cellulitis. MS/ Extremity: Pulses equal, no cyanosis. Neurovascular intact. Full, normal range of motion. Neuro: Awake and alert, GCS 15, oriented to person, place, time, and situation. Cranial nerves II-XII grossly intact. Motor strength 5/5 in all extremities. Sensory grossly intact. Cerebellar exam normal. Normal gait. Psych: Awake, alert, with orientation to person, place and time. Behavior, mood, and affect are within normal limits. Vital Signs: 14:17 BP 164 / 69; Pulse 80; Resp 16; Temp 98.4; Pulse Ox 100% on R/A; Weight 74.84 kg; hb Height 5 ft. 11 in. (180.34 cm); Pain 0/10; 16:00 BP 162 / 71; Pulse 93; Resp 18 S; Pulse Ox 100% on R/A; Pain 0/10; kc6 16:40 BP 158 / 70; Pulse 75; Pulse Ox 100% on R/A; ap3 17:15 BP 162 / 72; Pulse 69; Resp 14 S; Pulse Ox 100% on R/A; Pain 0/10; kc6 18:15 BP 181 / 82; Pulse 70; Resp 16 S; Pulse Ox 100% on R/A; Pain 0/10; kc6 18:56 BP 180 / 86; Pulse 80; Resp 20 S; Pulse Ox 100% on R/A; kc6 19:48 Pulse 68; Resp 18; Pulse Ox 99% ; vc1 20:37 BP 119 / 63; vc1 14:17 Body Mass Index 23.01 (74.84 kg, 180.34 cm) hb MDM: 14:24 Patient medically screened. snw 14:31 Differential diagnosis: diabetes insipidus, DKA, hyperglycemia, infection. Data snw reviewed: vital signs, nurses notes. Historians other than the Patient: Family Member: Daughter and Son In Law. ED course: Daughter concerned for UTI. 20:33 Counseling: I had a detailed discussion with the patient and/or guardian regarding: the snw historical points, exam findings, and any diagnostic results supporting the discharge/admit diagnosis, the presence of at least one elevated blood pressure reading (>120/80) during this emergency department visit, lab results, the need for outpatient follow up, for definitive care, to return to the emergency department if symptoms worsen or persist or if there are any questions or concerns that arise at home. Response to treatment: the patient's symptoms have markedly improved after treatment. Special discussion: Based on the history and exam findings, there is no indication for further emergent testing or inpatient evaluation. I discussed with the patient/guardian the need to see the primary care provider for further evaluation of the symptoms. 12/15 14:25 Order name: Glucose hb 12/15 14:26 Order name: CBC with Diff; Complete Time: 15:27 snw 12/15 14:26 Order name: CMP; Complete Time: 15:28 snw 12/15 14:26 Order name: Lipase; Complete Time: 15: snw 12/15 14:26 Order name: Urine Microscopic Only; Complete Time: 18:30 snw 12/15 14:26 Order name: Acetone, Serum; Complete Time: 15:28 w 12/15 14:26 Order name: Blood Culture Adult (2) w 12/15 14:26 Order name: Urine Culture 12/15 14:34 Order name: Glucose, Ancillary Testing; Complete Time: 14:41 EDMS 12/15 17:09 Order name: Glucose, Ancillary Testing; Complete Time: 17:24 EDMS 12/15 18:08 Order name: Urine Dipstick-Ancillary; Complete Time: 18:28 EDMS 12/15 18:25 Order name: Glucose, Ancillary Testing; Complete Time: 18:28 EDMS 12/15 18:31 Order name: Chem 7; Complete Time: 20:32 snw 12/15 14:26 Order name: IV Saline Lock; Complete Time: 14:47 w 12/15 14:26 Order name: Labs collected and sent; Complete Time: 14:47 w 12/15 15:42 Order name: FSBS: hourly; Complete Time: 16:10 w 12/15 20:33 Order name: Recheck B/P; Complete Time: 20:37 snw Administered Medications: 15:02 Drug: NS 0.9% 500 ml Route: IV; Rate: bolus; Site: right antecubital; kc6 16:10 Follow up: Response: No adverse reaction; IV Status: Completed infusion; IV Intake: kc6 500ml 15:50 Drug: Insulin Regular Human 5 units {Co-Signature: kc6 (Hyun Armendariz RN).} Route: ap3 Sub-Q; Site: right upper arm; 15:51 Drug: Insulin Regular Human 5 units {Co-Signature: kc6 (Hyun Armendariz RN).} Route: ap3 IVP; Site: right antecubital; 17:18 Drug: NS 0.9% 500 ml Route: IV; Rate: bolus; Site: right antecubital; kc6 18:35 Drug: cloNIDine 0.1 mg Route: PO; kc6 20:55 Drug: Potassium Effervescent Tablet 50 mEq Route: PO; vc1 Point of Care Testin:22 HI hb Ranges: Critical Glucose Levels:Adult <50 mg/dl or >400 mg/dl <40 mg/dl or >180 mg/dl Disposition Summary: 12/15/22 20:35 Discharge Ordered Location: Home snw Condition: Stable snw Diagnosis - Diabetes mellitus due to underlying condition with hyperglycemia snw - Hypokalemia snw Followup: snw - With: Emergency Department - When: As needed - Reason: Worsening of condition Followup: snw - With: Alex Garcia MD - When: 2 - 3 days - Reason: Recheck today's complaints, Continuance of care, Re-evaluation by your physician Discharge Instructions: - Discharge Summary Sheet snw - Potassium Content of Foods snw - Hyperglycemia snw - Form - Daily Diabetes Record snw - Blood Glucose Monitoring, Adult snw - Diabetes Mellitus and Nutrition, Adult snw - Hypokalemia snw Forms: - Medication Reconciliation Form snw - Thank You Letter snw - Antibiotic Education snw - Prescription Opioid Use snw Signatures: Dispatcher [employer] EDMS Cris Ca, CONTROL SPECIALIST-C CONTROL SPECIALIST-Csnw Suzy Vu RN RN Shannon Ellis RN RN ap3 Beulah Grant RN RN vc1 Hyun Armendariz RN RN kc6 Hyun Armendariz RN kc6
--- NOTE | 2022-12-15 20:36 | ER ---
Nurse's Notes [facility] Name: Lorena Canas Age: 82 yrs Sex: Female : 1940 Arrival Date: 12/15/2022 Time: 14:10 Bed 2 Private MD: Alex Garcia C Diagnosis: Diabetes mellitus due to underlying condition with hyperglycemia;Hypokalemia Presentation: 12/15 14:17 Chief complaint: Daughter reports Dr. Garcia discontinued her insulin and metformin 2 hb months ago, home BGL today was 568. Pt reports "I feel fine but I have been very stressed lately.". Coronavirus screen: At this time, the client does not indicate any symptoms associated with coronavirus-19. Ebola Screen: No symptoms or risks identified at this time. Initial Sepsis Screen: Does the patient meet any 2 criteria? No. Patient's initial sepsis screen is negative. Does the patient have a suspected source of infection? No. Patient's initial sepsis screen is negative. Risk Assessment: Do you want to hurt yourself or someone else? Patient reports no desire to harm self or others. Onset of symptoms was December 15, 2022. 14:17 Method Of Arrival: Ambulatory hb 14:17 Acuity: RHONDA 2 hb Historical: - Allergies: 14:19 No Known Allergies; hb - Home Meds: 14:19 aspirin 81 mg Oral TbEC 1 tab once daily [Active]; Razadyne ER 8 mg oral C24P 2 caps hb once daily [Active]; - PMHx: 14:19 Dementia; diabetes mellitus; Hypertensive disorder; urinary tract infection; hb - PSHx: 14:19 GALLBLADDER; hysterectomy; hb - Immunization history:: Adult Immunizations up to date. - Social history:: Smoking status: Patient denies any tobacco usage or history of. Screenin:19 [facility] ED Fall Risk Assessment (Adult) History of falling in the last 3 months, kc6 including since admission No falls in past 3 months (0 pts) Confusion or Disorientation No (0 pts) Intoxicated or Sedated No (0 pts) Impaired Gait No (0 pts) Mobility Assist Device Used No (0 pt) Altered Elimination No (0 pt) Score/Fall Risk Level 0 - 2 = Low Risk Oriented to surroundings, Maintained a safe environment, Educated pt \\T\\ family on fall prevention, incl call for assistance when getting out of bed, Assessed \\T\\ reinforced patient's understanding of fall precautions, Hourly rounding (assess needs \\T\\ fall precautionary measures) done. Abuse screen: Denies threats or abuse. Denies injuries from another. Nutritional screening: No deficits noted. Tuberculosis screening: No symptoms or risk factors identified. 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 hb 14:30 General: Appears in no apparent distress. comfortable, Behavior is calm, cooperative, kc6 appropriate for age. Pain: Denies pain. Neuro: Roman Agitation-Sedation Scale (RASS): 0 - Alert and Calm Level of Consciousness is awake, alert, obeys commands, Oriented to person, place, time, situation, Appropriate for age. Cardiovascular: Capillary refill < 3 seconds. Respiratory: Airway is patent Trachea midline Respiratory effort is even, unlabored, Respiratory pattern is regular, symmetrical. GI: No signs and/or symptoms were reported involving the gastrointestinal system. : No signs and/or symptoms were reported regarding the genitourinary system. EENT: No signs and/or symptoms were reported regarding the EENT system. Derm: No signs and/or symptoms reported regarding the dermatologic system. Skin is intact, Skin is pink, warm \\T\\ dry. Musculoskeletal: No signs and/or symptoms reported regarding the musculoskeletal system. Circulation, motion, and sensation intact. Capillary refill < 3 seconds, Range of motion: intact in all extremities. 15:30 Reassessment: Patient appears in no apparent distress at this time. No changes from kc6 previously documented assessment. Patient and/or family updated on plan of care and expected duration. Pain level reassessed. Patient is alert, oriented x 3, equal unlabored respirations, skin warm/dry/pink. Patient denies pain at this time. 16:30 Reassessment: Patient appears in no apparent distress at this time. No changes from kc6 previously documented assessment. Patient and/or family updated on plan of care and expected duration. Pain level reassessed. Patient is alert, oriented x 3, equal unlabored respirations, skin warm/dry/pink. Patient denies pain at this time. 17:30 Reassessment: Patient appears in no apparent distress at this time. No changes from kc6 previously documented assessment. Patient and/or family updated on plan of care and expected duration. Pain level reassessed. Patient is alert, oriented x 3, equal unlabored respirations, skin warm/dry/pink. Patient denies pain at this time. 18:22 Reassessment: FSBS 265. provider notified. ap3 18:30 Reassessment: Patient appears in no apparent distress at this time. No changes from kc6 previously documented assessment. Patient and/or family updated on plan of care and expected duration. Pain level reassessed. Patient is alert, oriented x 3, equal unlabored respirations, skin warm/dry/pink. Patient denies pain at this time. 20:56 Reassessment: No changes from previously documented assessment. Patient and/or family vc1 updated on plan of care and expected duration. Pain level reassessed. Patient is alert, oriented x 3, equal unlabored respirations, skin warm/dry/pink. Patient denies pain at this time. Vital Signs: 14:17 BP 164 / 69; Pulse 80; Resp 16; Temp 98.4; Pulse Ox 100% on R/A; Weight 74.84 kg; hb Height 5 ft. 11 in. (180.34 cm); Pain 0/10; 16:00 BP 162 / 71; Pulse 93; Resp 18 S; Pulse Ox 100% on R/A; Pain 0/10; kc6 16:40 BP 158 / 70; Pulse 75; Pulse Ox 100% on R/A; ap3 17:15 BP 162 / 72; Pulse 69; Resp 14 S; Pulse Ox 100% on R/A; Pain 0/10; kc6 18:15 BP 181 / 82; Pulse 70; Resp 16 S; Pulse Ox 100% on R/A; Pain 0/10; kc6 18:56 BP 180 / 86; Pulse 80; Resp 20 S; Pulse Ox 100% on R/A; kc6 19:48 Pulse 68; Resp 18; Pulse Ox 99% ; vc1 20:37 BP 119 / 63; vc1 14:17 Body Mass Index 23.01 (74.84 kg, 180.34 cm) hb ED Course: 14:10 Patient arrived in ED. mr 14:10 Alex Garcia MD is Private Physician. mr 14:13 Cris Ca F[facility]-C [facility]. snw 14:13 Elver Vallecillo MD is Attending Physician. snw 14:19 Triage completed. hb 14:19 Arm band placed on. hb 14:29 Hyun Armendariz, RN is Primary Nurse. kc6 14:47 CBC with Diff Sent. kc6 14:47 Acetone, Serum Sent. kc6 14:48 CMP Sent. kc6 14:48 Lipase Sent. kc6 14:48 Inserted saline lock: 20 gauge in right antecubital area, using aseptic technique. kc6 Blood collected. 15:02 Blood Culture Adult (2) Sent. kc6 17:19 Patient has correct armband on for positive identification. Placed in gown. Bed in low kc6 position. Call light in reach. Side rails up X2. Adult w/ patient. 18:15 Urine Culture Sent. kc6 18:15 Urine Microscopic Only Sent. kc6 20:34 Alex Garcia MD is Referral Physician. snw 20:55 No provider procedures requiring assistance completed. IV discontinued, intact, vc1 bleeding controlled, No redness/swelling at site. Pressure dressing applied. Administered Medications: 15:02 Drug: NS 0.9% 500 ml Route: IV; Rate: bolus; Site: right antecubital; kc6 16:10 Follow up: Response: No adverse reaction; IV Status: Completed infusion; IV Intake: kc6 500ml 15:50 Drug: Insulin Regular Human 5 units {Co-Signature: aj (Hyun Armendariz RN).} Route: ap3 Sub-Q; Site: right upper arm; 15:51 Drug: Insulin Regular Human 5 units {Co-Signature: aj (Hyun Armendariz RN).} Route: ap3 IVP; Site: right antecubital; 17:18 Drug: NS 0.9% 500 ml Route: IV; Rate: bolus; Site: right antecubital; kc6 18:35 Drug: cloNIDine 0.1 mg Route: PO; kc6 20:55 Drug: Potassium Effervescent Tablet 50 mEq Route: PO; vc1 Medication: 20:56 VIS not applicable for this client. vc1 Point of Care Testin:22 HI hb Ranges: Intake: 16:10 IV: 500ml; Total: 500ml. kc6 Outcome: 20:35 Discharge ordered by . snw 20:55 Discharged to home ambulatory, with family. vc1 20:55 Condition: good 20:55 Discharge instructions given to patient, Instructed on discharge instructions, follow up and referral plans. medication usage, Demonstrated understanding of instructions, follow-up care, medications. 20:58 Patient left the ED. vc1 Signatures: Cris Ca FNP-C SUPERVISOR FLOOR ASSEMBLY-Stefanie Leslie Catherine Suzy Vu, RN RN hb Shannon Ellis RN RN ap3 Beulah Grant RN RN vc1 Hyun Armendariz RN RN kc6 Hyun Armendariz RN kc6 Corrections: (The following items were deleted from the chart) 14:22 14:17 BP 188 / 73; Pulse 80bpm; Resp 16bpm; Pulse Ox 100% RA; Temp 98.4F; 74.84 kg; hb Height 5 ft. 11 in.; BMI: 23.0; Pain 0/10; hb 14:22 14:17 Acuity: RHONDA 3 hb hb 14:26 14:24 Blood Glucose: Notes=HI. hb hb
[2022-12-15] MEDS ORDERED: POTASSIUM 25 MEQ EFFERV TAB ONE (20:42)
[2022-12-15 21:03] VITALS: TEMP 98.4
[2022-12-15 21:10] VITALS: O2SAT 99
[2022-12-15 21:11] VITALS: BP 119/63
== END 2022-12-15 20:58 | disposition home or self-care (01) ==
LOC: ER 14:07
DX: E11.65 Type 2 diabetes mellitus with hyperglycemia (principal); E87.6 Hypokalemia; I10 Essential (primary) hypertension; F03.90 Unspecified dementia, unspecified severity, without behavioral disturbance, psychotic disturbance, mood disturbance, and anxiety; Z79.82 Long term (current) use of aspirin
CPT/HCPCS: 96361; 87040 ×2; 87088; 85025; 87086; 80048; 36415; 82010; 82947 ×3; 83690; 80053; 96372; 96374; 99284; J1815; J7040 ×2; 81003; 81015

== ENCOUNTER 2023-03-05 20:15 | Inpatient (IN) | payer OTHER ==
[2023-03-05 23:29] LABS: Hematocrit 35.2 % (36.0-45.0); Lymphocytes % 23.2 % (15.3-44.8); MCV 89.3 fL (80-100); MPV 7.7 fL (7.6-11.3); RBC Red Blood Cell Count 3.94 M/uL (3.86-4.86)
[2023-03-05 23:33] LABS: Protime INR 0.94
[2023-03-05 23:47] LABS: C-Reactive Protein < 2.90 mg/L (<3.00)
[2023-03-06 00:39] LABS: BUN Blood Urea Nitrogen 34 mg/dL (7-18); Bicarbonate 27 mEq/L (21-32); Glomerular Filtration Rate 46 ml/min (=/>90); Potassium 4.2 mEq/L (3.5-5.1); Sodium Level 127 mEq/L (136-145)
[2023-03-06 00:40] LABS: Glucose Level 536 mg/dL (74-106)
--- NOTE | 2023-03-06 01:09 | ER ---
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 Coronavirus as6 screen: At this time, the client does not indicate any symptoms associated with coronavirus-19. Ebola Screen: No symptoms or risks identified at this time. Initial Sepsis Screen:. Initial Sepsis Screen: Does the patient meet any 2 criteria? No. Patient's initial sepsis screen is negative. Does the patient have a suspected source of infection? No. Patient's initial sepsis screen is negative. Risk Assessment: Do you want to hurt yourself or someone else? Patient reports no desire to harm self or others. Onset of symptoms is unknown. 21:12 Method Of Arrival: Ambulatory as6 21:12 Acuity: RHONDA 3 as6 Historical: - Allergies: 21:14 No Known Allergies; as6 - PMHx: 21:14 Dementia; diabetes mellitus; Hypertensive disorder; urinary tract infection; as6 - PSHx: 21:14 GALLBLADDER; hysterectomy; as6 - Immunization history:: Client reports receiving the 2nd dose of the Covid vaccine. - Social history:: Smoking status: Patient denies any tobacco usage or history of. Screenin:49 [facility] ED Fall Risk Assessment (Adult) History of falling in the last 3 months, mb9 including since admission No falls in past 3 months (0 pts) Confusion or Disorientation Yes (5 pts) Intoxicated or Sedated No (0 pts) Impaired Gait Yes (1 pt) Mobility Assist Device Used No (0 pt) Altered Elimination No (0 pt) Score/Fall Risk Level 0 - 2 = Low Risk Oriented to surroundings, Maintained a safe environment, Educated pt \\T\\ family on fall prevention, incl call for assistance when getting out of bed. Abuse screen: Denies threats or abuse. Nutritional screening: No deficits noted. Tuberculosis screening: No symptoms or risk factors identified. Assessment: 23:30 Reassessment: pt brought back to ER room. mb9 23:45 Reassessment: Notified Edith MAY, of glucose level 486. mb9 23:48 Reassessment: Ultrasound at bedside. mb9 23:50 General: Appears in no apparent distress. Behavior is cooperative. Pain: Complains of mb9 pain in left great toe. Neuro: Level of Consciousness is awake, alert, obeys commands. Cardiovascular: Patient's skin is warm and dry. Respiratory: Airway is patent Respiratory effort is even, unlabored, Respiratory pattern is regular, symmetrical. Derm: Skin is pink, warm \\T\\ dry. Musculoskeletal: Range of motion: intact in all extremities, Swelling present in left great toe. 03/06 01:58 Reassessment: Rachana [id number], [id number]. ea2 Vital Signs: 03/05 21:12 BP 163 / 71; Pulse 84; Resp 18 S; Temp 97.7(O); Pulse Ox 98% on R/A; Weight 58.97 kg as6 (R); Height 5 ft. 8 in. (R); Pain 2/10; 21:12 Body Mass Index 19.77 (58.97 kg, 172.72 cm) as6 21:12 Pain Scale: Adult as6 ED Course: 20:16 Patient arrived in ED. rg4 20:18 Dimitri Sharma PA is PHCP. cp 20:18 Michael Bernabe MD is Attending Physician. cp 21:12 Arm band placed on. as6 21:14 Triage completed. as6 23:43 XRAY Foot LEFT 3 View In Process Unspecified. EDMS 23:49 No provider procedures requiring assistance completed. mb9 23:50 Bed in low position. Call light in reach. Side rails up X 1. Client placed on mb9 continuous cardiac and pulse oximetry monitoring. NIBP monitoring applied. 03/06 00:01 US Extremity Venous Unilateral Ltd In Process Unspecified. EDMS 00:01 US LE Artery Uni Ltd In Process Unspecified. EDMS 01:08 Alex Garcia MD is Hospitalizing Provider. cp 03:46 Vitaly Wylie, ACE is Primary Nurse. as6 Administered Medications: 00:57 CANCELLED (Physician Discretion): Doxycycline PO 100 mg PO once cp 00:57 CANCELLED (Physician Discretion): LevOfloxacin PO 500 mg PO once cp 01:53 Drug: NS 0.9% IV 250 ml Route: IV; Rate: bolus; Site: right antecubital; ea2 01:54 Drug: Cefepime IVPB 1 grams Route: IVPB; Rate: 200 ml/hr; Infused Over: 30 mins; Site: ea2 right antecubital; 02:20 Drug: Insulin Regular Human IVP 10 units {Co-Signature: ea2 (Marleen Gregg RN).} as6 Route: IVP; Site: right antecubital; 03:00 Drug: vancoMYCIN IVPB 1 grams Route: IVPB; Infused Over: 2 hrs; Site: right antecubital;as6 03:00 Drug: NS 0.9% IV 250 ml Route: IV; Rate: 75 ml/hr; Site: right antecubital; as6 Medication: 03/05 23:49 VIS not applicable for this client. mb9 Outcome: 03/06 01:09 Decision to Hospitalize by Provider. cp 21:40 Patient left the ED. mb9 Signatures: Dispatcher [employer] EDMS Dimitri Sharma PA PA cp Garcia, Rubi rg4 Vitaly Wylie RN RN as6 Leslie Gagnon RN RN mb9 Marleen Gregg RN RN ea2 Marleen Gregg RN ea2
--- NOTE | 2023-03-06 01:10 | EDPHYS ---
Physician Documentation [facility] Name: Lorena Canas Age: 82 yrs Sex: Female : 1940 Arrival Date: 03/05/2023 Time: 20:15 Bed 14 Private MD: ED Physician Michael Bernabe HPI: 03/05 22:50 This 82 yrs old Female presents to ER via Ambulatory with complaints of Toe Infection. cp 22:50 The patient presents with swelling, infection. The complaints affect the left great cp toe. Context: resulted from an unknown cause, the patient can fully bear weight, the patient is able to ambulate, with mild difficulty. 22:50 Onset: The symptoms/episode began/occurred gradually. cp 22:50 Associated signs and symptoms: Pertinent positives: swelling, warmth, pain, Pertinent cp negatives: calf tenderness, fever. Severity of symptoms: in the emergency department the symptoms are unchanged, despite home interventions. Historical: - Allergies: 21:14 No Known Allergies; as6 - PMHx: 21:14 Dementia; diabetes mellitus; Hypertensive disorder; urinary tract infection; as6 - PSHx: 21:14 GALLBLADDER; hysterectomy; as6 - Immunization history:: Client reports receiving the 2nd dose of the Covid vaccine. - Social history:: Smoking status: Patient denies any tobacco usage or history of. ROS: 22:55 Constitutional: Negative for body aches, chills, fever, poor PO intake. cp 22:55 Eyes: Negative for injury, pain, redness, and discharge. cp 22:55 ENT: Negative for drainage from ear(s), ear pain, sore throat, difficulty swallowing, difficulty handling secretions. 22:55 Cardiovascular: Negative for chest pain. 22:55 Respiratory: Negative for cough, shortness of breath, wheezing. 22:55 MS/extremity: Positive for erythema, pain, swelling, tenderness, of the left great toe, Negative for injury or acute deformity. 22:55 Neuro: Negative for altered mental status, headache. 22:55 All other systems are negative. Exam: 23:00 Constitutional: The patient appears in no acute distress, alert, awake, comfortable, cp non-diaphoretic, non-toxic, well developed, well nourished. 23:00 Head/Face: Normocephalic, atraumatic. cp 23:00 Eyes: Periorbital structures: appear normal, Conjunctiva: normal, no exudate, no injection, Sclera: no appreciated abnormality, Lids and lashes: appear normal, bilaterally. 23:00 ENT: External ear(s): are unremarkable, Nose: is normal, Mouth: Lips: moist, Oral mucosa: pink and intact, moist, Posterior pharynx: is normal, airway is patent, no erythema, no exudate. 23:00 Chest/axilla: Inspection: normal. 23:00 Cardiovascular: Rate: normal, Rhythm: regular, Edema: is not appreciated, JVD: is not appreciated. 23:00 Respiratory: the patient does not display signs of respiratory distress, Respirations: normal, no use of accessory muscles, no retractions, labored breathing, is not present, Breath sounds: are clear throughout, no decreased breath sounds, no stridor, no wheezing. 23:00 Abdomen/GI: Exam negative for discomfort, distension, guarding, Inspection: abdomen appears normal. 23:00 Back: pain, is absent, ROM is normal. 23:00 Musculoskeletal/extremity: Extremities: noted in the left foot: superficial wound noted tip distal phalanx left great toe, advancing erythema and swelling to dorsum left foot, tenderness to palpation, scant drainage from wound noted. Vital Signs: 21:12 BP 163 / 71; Pulse 84; Resp 18 S; Temp 97.7(O); Pulse Ox 98% on R/A; Weight 58.97 kg as6 (R); Height 5 ft. 8 in. (R); Pain 2/10; 21:12 Body Mass Index 19.77 (58.97 kg, 172.72 cm) as6 21:12 Pain Scale: Adult as6 MDM: 21:23 Patient medically screened. cp 03/06 00:00 Differential diagnosis: cellulitis, DKA, abscess, osteomyelitis, abscess. cp 01:00 Data reviewed: vital signs, nurses notes, lab test result(s), radiologic studies, plain cp films, and as a result, I will admit patient. 01:00 Consideration of Admission/Observation Patient was admitted/placed on observation. I cp considered the following discharge prescriptions or medication management in the emergency department Medications were administered in the Emergency Department. See MAR. Independent interpretation of the following test(s) in the Emergency Department X-Ray: My interpretation is images of left foot negative for fracture. Care significantly affected by the following chronic conditions: Diabetes, Hypertension. Counseling: I had a detailed discussion with the patient and/or guardian regarding: the historical points, exam findings, and any diagnostic results supporting the discharge/admit diagnosis, lab results, radiology results. 03/05 22:44 Order name: Blood Culture Adult (2) 03/05 22:44 Order name: CBC with Diff; Complete Time: 23:43 03/05 23:43 Interpretation: Normal except: HCT 35.2. 03/05 22:44 Order name: Lactate w/ 2H reflex if indic.; Complete Time: 23:43 03/05 23:56 Interpretation: Reviewed. 03/05 22:44 Order name: Protime (+inr); Complete Time: 23:43 03/05 23:57 Interpretation: Reviewed. 03/05 22:44 Order name: CRP; Complete Time: 00:41 03/05 23:56 Interpretation: Within normal limits. 03/05 23:53 Order name: Glucose, Ancillary Testing; Complete Time: 23:56 EDCT 03/05 23:56 Interpretation: Abnormal: GLUC,ANCIL 486. 03/05 23:58 Order name: LAB Add On 03/06 00:30 Order name: Basic Metabolic Panel; Complete Time: 00:41 EDCT 03/06 01:07 Interpretation: Normal except: NA 127; CL 95; GLUC 536; BUN 34; CRE 1.17; GFR 46. 03/06 03:21 Order name: Glucose, Ancillary Testing; Complete Time: 03:27 EDCT 03/06 03:27 Interpretation: Reviewed. 03/06 03:27 Order name: Basic Metabolic Panel EDCT 03/06 03:27 Order name: Basic Metabolic Panel EDCT 03/06 03:27 Order name: CBC with Automated Diff EDCT 03/06 03:27 Order name: CBC with Automated Diff EDCT 03/06 08:19 Order name: Glucose, Ancillary Testing EDCT 03/06 09:01 Order name: Liver (Hepatic) Function EDCT 03/06 09:01 Order name: Thyroid Stimulating Hormone EDCT 03/06 09:28 Order name: Hemoglobin A1c EDCT 03/06 12:25 Order name: Glucose, Ancillary Testing EDCT 03/06 17:12 Order name: Glucose, Ancillary Testing EDMS 03/06 20:49 Order name: Glucose, Ancillary Testing EDCT 03/05 22:44 Order name: XRAY Foot LEFT 3 View cp 03/05 22:44 Order name: US Extremity Venous Unilateral Ltd cp 03/05 22:44 Order name: US LE Artery Uni Ltd cp 03/06 12:54 Order name: MRI EDCT 03/06 03:27 Order name: 60g Consistent Carbohydrate (ADA 1800/1999) EDCT 03/05 22:44 Order name: Accucheck; Complete Time: 23:42 cp 03/05 22:44 Order name: Cardiac monitoring; Complete Time: 23:29 cp 03/05 22:44 Order name: IV Saline Lock - Large Bore; Complete Time: 23:29 cp 03/05 22:44 Order name: Labs collected and sent; Complete Time: 23:29 cp 03/05 22:44 Order name: O2 Per Protocol; Complete Time: 23:29 cp 03/05 22:44 Order name: O2 Sat Monitoring; Complete Time: 23:29 cp 03/05 22:44 Order name: Vital Signs; Complete Time: 23:29 03/06 03:01 Order name: Accucheck Blood Glucose; Complete Time: 03:04 cp Administered Medications: 00:57 CANCELLED (Physician Discretion): Doxycycline PO 100 mg PO once cp 00:57 CANCELLED (Physician Discretion): LevOfloxacin PO 500 mg PO once cp 01:53 Drug: NS 0.9% IV 250 ml Route: IV; Rate: bolus; Site: right antecubital; ea2 01:54 Drug: Cefepime IVPB 1 grams Route: IVPB; Rate: 200 ml/hr; Infused Over: 30 mins; Site: ea2 right antecubital; 02:20 Drug: Insulin Regular Human IVP 10 units {Co-Signature: ea2 (Marleen Gregg RN).} as6 Route: IVP; Site: right antecubital; 03:00 Drug: vancoMYCIN IVPB 1 grams Route: IVPB; Infused Over: 2 hrs; Site: right antecubital;as6 03:00 Drug: NS 0.9% IV 250 ml Route: IV; Rate: 75 ml/hr; Site: right antecubital; as6 Disposition: 03/07 19:44 Co-signature as Attending Physician, Michael Bernabe MD I agree with the assessment sp4 and plan of care. I reviewed the patient's care provided by the Advanced Practice Provider and agree with the diagnosis and treatment plan. Disposition Summary: 03/06/23 01:09 Hospitalization Ordered Hospitalization Status: Inpatient Admission cp Provider: Alex Garcia cp Condition: Stable cp Problem: new cp Symptoms: are unchanged cp Bed/Room Type: Standard cp Location: Telemetry/MedSurg (Inpatient)(03/06/23 20:26) Room Assignment: [facility](03/06/23 20:26) Diagnosis - Cellulitis of left lower limb cp - Diabetes mellitus due to underlying condition with hyperglycemia cp - Diabetes mellitus due to underlying condition with foot ulcer - left great cp toe(03/06/23 01:09) Forms: - Medication Reconciliation Form cp - SBAR form cp Signatures: Dispatcher [employer] EDMS Dimitri Sharma PA PA cp Garcia, Cindy, RN RN Vitaly Chan RN RN as6 Michael Bernabe MD MD sp4 Marleen Gregg RN RN ea2 Marleen Gregg RN ea2 Corrections: (The following items were deleted from the chart) 03/06 00:30 04 23:59 BASIC METABOLIC PANEL+C.LAB.BRZ ordered. EDMS EDMS 03/06 00:30 00:01 NT PRO-BNP ordered. EDMS EDMS 00:57 00:44 Doxycycline PO 100 mg PO once ordered. cp cp 00:57 00:44 LevOfloxacin PO 500 mg PO once ordered. cp cp 01:09 01:09 Diabetes mellitus due to underlying condition with foot ulcer cp cp 03:37 01:09 Telemetry/MedSurg (Inpatient) cp cg 03:37 01:09 cp cg 20:26 03:37 [facility] ER HOLD cg cg 20:26 03:37 ERHOLD- cg cg
[2023-03-06] MEDS ORDERED: CEFEPIME 1 GM/VIAL ONE (01:51)
[2023-03-06] MEDS ORDERED: NA CHLORIDE 0.9% 250 ML ONE (01:51)
[2023-03-06] MEDS ORDERED: INSULIN -REGULAR HUMAN 50 UNIT/0.5 ML ML ONE ×4 (01:51→20:53)
[2023-03-06] MEDS ORDERED: NA CHLORIDE 0.9% 500 ML ONE (02:48)
[2023-03-06] MEDS ORDERED: VANCOMYCIN 1 GM/VIAL ONE (02:48)
[2023-03-06] MEDS ORDERED: ONDANSETRON 4 MG/2 ML VIAL IV PRN (03:23)
[2023-03-06] MEDS ORDERED: GLUCAGON 1 MG/VIAL IM PRN (03:23)
[2023-03-06] MEDS ORDERED: ACETAMINOPHEN 500 MG TAB PO PRN (03:23)
[2023-03-06] MEDS ORDERED: D50W 25 GM/50 ML SYRINGE IV PRN (03:23)
[2023-03-06 03:47] VITALS: BMI 19.8
[2023-03-06] MEDS ORDERED: VANCOMYCIN 1 GM in NA CHLORIDE 0.9% 250 ML IVPB SCH (04:00)
[2023-03-06] MEDS: Levofloxacin500mg IV 500 MG/100 ML BAG IV SCH (07:00)
[2023-03-06] MEDS: INSULIN -REGULAR HUMAN 50 UNIT/0.5 ML ML SQ SCH ×4 (07:30→20:52)
[2023-03-06] MEDS ORDERED: D10W 125 ML IV PRN (08:03)
[2023-03-06] MEDS: ENOXAPARIN 30 MG/0.3 ML SQ SCH (08:57)
[2023-03-06] MEDS ORDERED: CEFEPIME 1 GM in NA CHLORIDE 0.9% 100 ML IV SCH (09:00)
[2023-03-06 09:01] LABS: Albumin 3.3 g/dL (3.4-5.0); Bilirubin Direct 0.1 mg/dL (0-0.2); Bilirubin Total 0.3 mg/dL (0.2-1.0); Protein, Total 7.5 g/dL (6.4-8.2); Thyroid Stimulating Hormone 2.21 uIU/mL (0.358-3.740)
[2023-03-06] MEDS ORDERED: ENOXAPARIN 30 MG/0.3 ML SQ ONE (09:06)
[2023-03-06] MEDS ORDERED: Levofloxacin500mg IV 500 MG/100 ML BAG IV ONE (09:07)
--- NOTE | 2023-03-06 12:54 | RAD REPORT ---
EXAM DESCRIPTION: MRI - Foot Left Wo Cont - 03/06/2023 11:20 am CLINICAL HISTORY: rule out osteomyelitis Pain and swelling COMPARISON: No comparisons FINDINGS: Moderate abnormal signal is seen involving the distal phalanx of the great toe with dimini shed T1 signal and elevated T2 signal. Mild involvement of the distal aspect of the proximal phalanx of the great toe also present. This likely represents osteomyelitis. There is soft tissue thickening and ulceration along the medial aspect of the great toe. No fracture malalignment. No soft tissue mas s or hematoma. IMPRESSION: Moderate osteomyelitis is present primarily involving the distal phalanx of the great to e. There is early involvement of the distal aspect of the proximal phalanx as well as detailed. No dr ulloa fluid collection seen.
--- NOTE | 2023-03-06 16:16 | RAD REPORT ---
EXAM DESCRIPTION: RAD - Foot Left 3 View - 03/05/2023 11:41 pm CLINICAL HISTORY: SWELLING COMPARISON: None. TECHNIQUE: XR FOOT 3 OR MORE VIEWS 03/05/2023 10:44 PM CDT FINDINGS: There is no fracture. There are degenerative changes throughout the IP joints. There is mi ld diffuse soft tissue swelling. IMPRESSION: No acute osseous findings. Electronically signed by: Jaydon Lezama MD 03/06/2023 12:21 AM CDT Due to temporary technical issues with the PACS/Fluency reporting system, reports are being signed by the in house radiologists without review as a courtesy to insure prompt reporting. The interpreting radiologist is fully responsible for the content of the report.
--- NOTE | 2023-03-06 16:19 | RAD REPORT ---
EXAM DESCRIPTION: US - Extremity Venous Uni Ltd - 03/05/2023 11:58 pm CLINICAL HISTORY: 82 years Female Pain;Swelling COMPARISON: None TECHNIQUE: Real-time and Doppler sonography of the deep venous system of the left lower extremity wa s performed. Grayscale, color, and spectral analysis was utilized. FINDINGS: No intraluminal thrombus is seen at any level. Satisfactory compressibility all levels. No popliteal cyst. IMPRESSION: No sonographic evidence for deep venous thrombosis involving the left lower extremity. Electronically signed by: Amparo Lara MD 03/06/2023 12:36 AM CDT Due to temporary technical issues with the PACS/Fluency reporting system, reports are being signed by the in house radiologists without review as a courtesy to insure prompt reporting. The interpreting radiologist is fully responsible for the content of the report.
--- NOTE | 2023-03-06 16:20 | RAD REPORT ---
EXAM DESCRIPTION: US - Lower Extremity Artery Uni Ltd - 03/05/2023 11:58 pm CLINICAL HISTORY: 82 years Female SWELLING COMPARISON: None TECHNIQUE: Real-time and Doppler sonography of the arterial system of the left lower extremity was p erformed. Grayscale, color, and spectral analysis was utilized. FINDINGS: Biphasic waveforms were seen extending from the left common femoral artery to the left pop liteal artery. Monophasic waveforms are noted involving the left posterior tibial and dorsalis pedis arteries. No intraluminal thrombus identified. Peak systolic velocities of the left proximal, mid, and distal superficial femoral, popliteal, line erector apprentice ior tibial, and dorsalis pedis arteries were 104, 68, 100, 119, 51, and 131 cm/s. IMPRESSION: Findings suspicious for significant peripheral vascular disease at the level of the lowe r leg. Monophasic waveforms left posterior tibial and dorsalis pedis arteries. Significant stenosis j ust distal to the popliteal artery could be considered. Correlation with CT angiography could be perf ormed for further characterization. Electronically signed by: Amparo Lara MD 03/06/2023 12:34 AM CDT Due to temporary technical issues with the PACS/Fluency reporting system, reports are being signed by the in house radiologists without review as a courtesy to insure prompt reporting. The interpreting radiologist is fully responsible for the content of the report.
[2023-03-07] MEDS ORDERED: VANCOMYCIN 1 GM/VIAL ONE (00:34)
[2023-03-07] MEDS ORDERED: NA CHLORIDE 0.9% 250 ML ONE (00:37)
--- NOTE | 2023-03-07 02:00 | HP ---
Date of Admission: 03/06/2023 Chief Complaint: Left foot redness and swelling. History Of Present Illness: This is an 82-year-old pleasant female patient, who lives by herself at home, who came into emergency room after her family members found out that she had some redness and s welling of the left foot yesterday. The patient actually had appointment to see me yesterday and she did not keep that appointment. She has significant memory problem to the extent that she is not abl e to take her own medications and her daughter, who as per my recommendation, puts her medication in a pillbox and does not have any medication bottles in her house, but week to week she gets her pillbo x ready for her to take medication, calls her on a daily basis to remind her to take medications and has informed me that the patient still forgets to take medication or just simply does not take it. W e do not know what the problem is, but she is absolutely not compliant with her medications. Terrence galloway does not know how long her foot has been red and swollen, but yesterday when she noted it she was b rought into emergency room. The patient actually had a regular followup appointment at office yester day and she was reminded by her daughter yesterday morning and day before yesterday evening and she s till did not keep her appointment to come see me at office. The patient does not want to go to [facility] so at this time, daughter has limited influence and she said she does work and she is trying to get her into [facility], but it is not going to happen any time soon, but she says that she is working on it. Allergies: ENALAPRIL CAUSING COUGH, PENICILLIN CAUSING RASH, AND PROPOXYPHENE CAUSING STOMACH UPSET. Medications: Aspirin 81 mg daily, vitamin D 3000 units daily, galantamine daily as per Dr. Laura, lo sartan 50 mg daily, pravastatin 20 mg daily, vitamin B12 1 mg daily, metformin 500 mg takes 2 tablets daily with breakfast, and Januvia 100 mg daily with breakfast, but once again it is important to not e that the patient is not compliant with her medications. Review of Systems: Musculoskeletal: As mentioned above. Dermatology: As mentioned above. All other systems reviewed and negative. Past Medical History: Type 2 diabetes mellitus, hypertension, mixed hyperlipidemia, diverticulosis, and depression. 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 Family History: Father had abdominal aortic aneurysm. Mother had diabetes. Brother with diabetes a nd hyperlipidemia. Social History: Prior history of smoking, not at present time. Use of alcohol, negative. Physical Examination: Vital Signs: Height 5 feet inches, weight pounds, temperature , puls e , respiratory rate , blood pressure , and oxygen saturation _. General: Awake, alert, oriented, not in distress. HEENT: Head atraumatic, normocephalic. Conjunctivae nonerythematous. Sclerae white. Mouth, no thr ush or edema noted. Ears/Nose, no mass, lesion, discharge noted. Neck: Supple. No JVD, lymph nodes, bruit, thyromegaly noted. Lungs: Bilateral good equal air entry. Clear to auscultation. No rhonchi. No rales. Heart: Normal heart sounds, no murmur or gallop. Abdomen: Soft, bowel sounds normal. No guarding, rigidity, tenderness, mass, hepatosplenomegaly, dis tention, or bruit noted. Extremities: Left foot has mild swelling on the dorsum aspect of the foot and around the ankle regio n. Skin over the left dorsum foot is pink and warm, no tenderness, and no open wound. Skin at the t ip of the left great toe has a hard area of about 1 cm round area of skin. No open wound and no disc harge or bleeding, but the socks that she was wearing overlying this area of the toe was appearing as if she had some stains from the discharge from this tip of the toe. No active bleeding or discharge noted. Skin: No rash, ulcer, cellulitis. Lymphatics: No lymph node enlargement in neck, supraclavicular, infraclavicular region. Neuro: The patient is awake and alert, but not oriented. She did not know why she came into the hos pital and really not able to give me any pertinent details, but she did recognize me and my name. Chest: Unremarkable. External Genitalia: Deferred. Rectal: Deferred. Laboratory Data: WBC , hemoglobin , and platelets . Sodium , potassium , chloride , bicarb , glucose , BUN , a nd creatinine . Arterial Doppler of lower extremity . Venous Doppler of lower e xtremity . MRI of the left foot was ordered to be done today and we will follow up on resu lts. Impression: 1.Cellulitis, left foot. 2.Diabetes mellitus, type 2, uncontrolled. 3.Noncompliance with medication. 4.Hypertension. 5.Mixed hyperlipidemia. 6.Depression. Plan: We will admit the patient to hospital for further evaluation and management of this problem. The patient is appropriate for inpatient and is expected to spend 2 midnights in hospital. We will g o ahead and manage diabetes with sliding scale insulin. We will get hemoglobin A1c done. We will gi ve empiric antibiotics Levaquin and vancomycin. Follow up on MRI results to rule out osteomyelitis. Continue statin therapy for hyperlipidemia and antihypertensive medication per order for blood press ure control. I did call the patient's daughter and details were discussed with her. FRANK/MODL Voice ID: [id number]
[2023-03-07] MEDS: VANCOMYCIN 0.75 GM in NA CHLORIDE 0.9% 150 ML IVPB SCH (03:20)
[2023-03-07 06:35] LABS: Absolute Lymphocytes (CBC) 2.2 K/uL (0.7-4.9); Hematocrit 30.1 % (36.0-45.0); Lymphocytes % 25.6 % (15.3-44.8); MCV 88.2 fL (80-100); MPV 7.9 fL (7.6-11.3); RBC Red Blood Cell Count 3.41 M/uL (3.86-4.86)
[2023-03-07 06:45] LABS: Potassium 3.7 mEq/L (3.5-5.1)
[2023-03-07] MEDS: ENOXAPARIN 30 MG/0.3 ML SQ SCH (08:30)
[2023-03-07] MEDS: INSULIN -REGULAR HUMAN 50 UNIT/0.5 ML ML SQ SCH ×4 (08:31→20:28)
[2023-03-07] MEDS: ALOGLIPTIN BENZOATE 12.5 MG TABLET PO SCH (08:31)
[2023-03-07] MEDS: Mupirocin NASAL 2 APPL/1 GM TUBE NAS SCH ×2 (08:31→20:28)
[2023-03-07] MEDS: Levofloxacin500mg IV 500 MG/100 ML BAG IV SCH (08:31)
[2023-03-07] MEDS: PIOGLITAZONE 15 MG TAB PO SCH (08:32)
[2023-03-07] MEDS: METFORMIN HCL 500 MG TAB PO SCH (08:32)
[2023-03-07] MEDS: ASPIRIN EC 81 MG TAB PO SCH (08:32)
--- NOTE | 2023-03-07 09:49 | P.CNS ---
Date of Consult: 03/07/23 Reason for Consult: Osteomyelitis History of Present Illness: Patient is an 82 yo female with a past medical history significant for diabetes mellitus type 2, hypertension, hyperlipidemia and depression who presented to the ED for left foot erythema and swelling. Patient reports a wound on left first toe that has been present for at least 3 weeks. MRI left foot revealed "Moderate osteomyelitis is present primarily involving the distal phalanx of the great toe. There is early involvement of the distal aspect of the proximal phalanx as well as detailed. No drainable fluid collection seen." ID was consulted for antibiotic management of osteomyelitis. Allergies No Known Allergies Allergy (Unverified 03/06/23 03:45) Home medications list reviewed: Yes Home Medications: Losartan Potassium 1 tab PO DAILY 09/15/22 Pravastatin Sodium 1 tab PO DAILY 09/15/22 Aspirin [Aspirin EC 81 MG] 81 mg PO DAILY 03/06/23 Cholecalciferol (Vitamin D3) [Vitamin D3] 1,000 unit PO DAILY 03/06/23 Cyanocobalamin (Vitamin B-12) [Vitamin B12] 2,500 mcg PO DAILY 03/06/23 Galantamine HBr [Galantamine ER] 8 mg PO DAILY 03/06/23 Metformin ER [Glucophage ER*] 2 tab PO DAILY 03/06/23 Sitagliptin Phosphate [Januvia] 2 tab PO DAILY 03/06/23 - Past Medical/Surgical History Diabetic: Yes -: DM -: Cholecystectomy -: Appendectomy -: Hysterectomy - Social History Smoking Status: Never smoker Alcohol use: No CD- Drugs: No Caffeine use: Yes Place of Residence: Home Review of Systems 10-point ROS is otherwise unremarkable Integumentary: Other (Left first toe wound) Physical Examination Temp Pulse Resp BP Pulse Ox 97.3 F 90 17 141/69 H 92 03/07/23 08:00 03/07/23 08:00 03/07/23 08:00 03/07/23 08:00 03/07/23 08:00 General: Alert, In no apparent distress, Oriented x3 HEENT: Atraumatic, Normocephalic Neck: Supple, JVD not distended Respiratory: Clear to auscultation bilaterally, Normal air movement Cardiovascular: No edema, Normal S1 S2 Gastrointestinal: Normal bowel sounds, Soft and benign, Non-distended Musculoskeletal: No clubbing, No swelling Integumentary: Erythema (mild, left foot), Diabetic ulcer (Left first toe) Neurological: Normal speech, Normal tone, Normal affect Laboratory Data - Reviewed Microbiology Data - Blood cultures 03/05 & 03/06: No growth to date Imagings Data: - MRI foot: "Moderate osteomyelitis is present primarily involving the distal phalanx of the great toe. There is early involvement of the distal aspect of the proximal phalanx as well as detailed. No drainable fluid collection seen." - Ultrasound doppler Left Leg 03/05: "Findings suspicious for significant peripheral vascular disease at the level of the lower leg." - Venous ultrasound left leg: "No sonographic evidence for deep vein thrombosis involving the left lower extremity." Conclusions/Impression: Problem List - Osteomyelitis - Diabetes Mellitus Type II - Hypertension - Hyperlipidemia - Diabetic ulcer of foot Osteomyelitis Left Foot/ Diabetic Ulcer of Left Foot - MRI foot: "Moderate osteomyelitis is present primarily involving the distal phalanx of the great toe. There is early involvement of the distal aspect of the proximal phalanx as well as detailed. No drainable fluid collection seen." - Blood cultures: no growth to date - On IV Vancomycin and IV Levaquin (started 03/07) - No leukocytosis; afebrile Recommendations - Osteomyelitis: Continue IV Vancomycin and Levaquin for 6 weeks duration (started 03/07) - Left first toe diabetic ulcer: paint wound with betadine; keep leg elevated when possible - Consider diabetic shoe to prevent pressure/contact/friction of left f irst toe to optimize wound healing ID will follow up and monitor the patient closely. Case discussed with Petra Prater
[2023-03-07] MEDS: ATORVASTATIN 40 MG TAB PO SCH (20:28)
--- NOTE | 2023-03-08 01:07 | PN ---
Date of Progress Note: 03/07/2023 Subjective: The patient was seen this morning for followup. No new complaints or problems reported by the patient. She is lying in bed, not in distress. Denies any complaints. Objective: Vital Signs: Reviewed. HEENT: Unremarkable. Lungs: Clear to auscultation. Heart: Sounds normal. Abdomen: Soft. Bowel sounds normal. No guarding, rigidity, tenderness, or distention. Extremities: No leg edema. On left foot exam, redness and swelling from the left foot has improved. Left great toe exam remains unchanged. Laboratory Data: MRI of the left foot shows evidence of osteomyelitis of the left great toe. Impression: 1.Osteomyelitis, left foot. 2.Peripheral vascular disease. 3.Diabetes mellitus type 2, uncontrolled. 4.Hypertension. 5.Hyperlipidemia. Plan: We will go ahead and continue antibiotics, Levaquin and vancomycin. Consult Infectious Diseas e specialist, Dr. Krueger and I did discuss details with him and his recommendation is to give 6 weeks of IV Levaquin and IV vancomycin. We will order PICC line and Social Service to make arrangements f or this IV antibiotic therapy to be done on outpatient basis and once arrangements get done, the lizette ent can be discharged to go home. I did try to reach out the patient's daughter this evening, she wa s not available to discuss details. Starting tomorrow, Hospitalist Service will take over this patie nt's care and I have discussed details with the Hospitalist Team. It is important to note that the p atient has significant dementia problem and she is really, every time we ask any questions, she alway s has a story to talk about instead of answering questions and obviously she does not answer questions, but she goes round and round to talk about different things. FRANK/MODL Voice ID: [id number] Report ID: [id number]
[2023-03-08] MEDS: VANCOMYCIN 0.75 GM in NA CHLORIDE 0.9% 150 ML IVPB SCH (02:49)
[2023-03-08] MEDS: PIOGLITAZONE 15 MG TAB PO SCH (09:18)
[2023-03-08] MEDS: ASPIRIN EC 81 MG TAB PO SCH (09:18)
[2023-03-08] MEDS: ALOGLIPTIN BENZOATE 12.5 MG TABLET PO SCH (09:19)
[2023-03-08] MEDS: INSULIN -REGULAR HUMAN 50 UNIT/0.5 ML ML SQ SCH ×4 (09:19→21:00)
[2023-03-08] MEDS: ENOXAPARIN 30 MG/0.3 ML SQ SCH (09:19)
[2023-03-08] MEDS: METFORMIN HCL 500 MG TAB PO SCH (09:19)
[2023-03-08] MEDS: Levofloxacin500mg IV 500 MG/100 ML BAG IV SCH (09:19)
[2023-03-08] MEDS: Mupirocin NASAL 2 APPL/1 GM TUBE NAS SCH (09:20)
--- NOTE | 2023-03-08 10:13 | P.PN ---
Date of Service: 03/08/23 Reason for Consult: Osteomyelitis Subjective: No new changes Patient sitting up in bed, not in distress. Denies any complaints at this time. No acute events reported overnight. Pending: PICC line for IV antibiotics x 6 weeks Physical Examination - Vitals Temp Pulse Resp BP Pulse Ox 97.7 F 92 H 17 129/61 93 03/08/23 08:00 03/08/23 08:00 03/08/23 08:00 03/08/23 08:00 03/08/23 08:00 - Physical Examination General: Alert, In no apparent distress, Oriented x3 HEENT: Atraumatic, Normocephalic Neck: Supple, JVD not distended Respiratory: Clear to auscultation bilaterally, Normal air movement Cardiovascular: No edema, Normal S1 S2 Gastrointestinal: Normal bowel sounds, Soft and benign, Non-distended Musculoskeletal: No clubbing, No swelling Integumentary: Mild erythema left foot; Diabetic ulcer Left first toe Neurological: Normal speech, Normal tone, Normal affect, Dementia - Studies Laboratory Data - Reviewed Microbiology Data - Blood cultures 03/05 & 03/06: No growth to date Imagings Data: - MRI foot: "Moderate osteomyelitis is present primarily involving the distal phalanx of the great toe. There is early involvement of the distal aspect of the proximal phalanx as well as detailed. No drainable fluid collection seen." - Ultrasound doppler Left Leg 03/05: "Findings suspicious for significant peripheral vascular disease at the level of the lower leg." - Venous ultrasound left leg: "No sonographic evidence for deep vein thrombosis involving the left lower extremity." Assessment & Plan Problem List - Osteomyelitis - Diabetes Mellitus Type II - Hypertension - Hyperlipidemia - Diabetic ulcer of foot - Dementia Osteomyelitis Left Foot/ Diabetic Ulcer of Left Foot - MRI foot: "Moderate osteomyelitis is present primarily involving the distal phalanx of the great toe. There is early involvement of the distal aspect of the proximal phalanx as well as detailed. No drainable fluid collection seen." - Blood cultures: no growth to date - On IV Vancomycin and IV Levaquin (started 03/07) - No leukocytosis; afebrile Recommendations - Osteomyelitis: Continue IV Vancomycin and Levaquin for 6 weeks duration (started 03/07) - Left first toe diabetic ulcer: paint wound with betadine; keep leg elevated when possible - Blood glucose control, goal BG <180 - Pending: PICC line for outpatient IV antibiotics ID will follow up and monitor the patient closely. Case discussed with Petra Prater
[2023-03-08] MEDS ORDERED: VANCOMYCIN 1 GM in NA CHLORIDE 0.9% 250 ML IVPB SCH (21:00)
[2023-03-08] MEDS: ATORVASTATIN 40 MG TAB PO SCH (21:06)
[2023-03-09] MEDS: Mupirocin NASAL 2 APPL/1 GM TUBE NAS SCH ×2 (04:24→08:13)
--- NOTE | 2023-03-09 04:59 | P.PN ---
Subjective Date of Service: 03/08/23 Patient is clinically doing well. Patient denies any new complaints. Awaiting for arrangements for IV antibiotics. Patient with a history of dementia. Patient's daughter assist in making some of her decision making. Awaiting for PICC line placement and IV antibiotics arrangement. Review of Systems 10-point ROS is otherwise unremarkable Physical Examination - Vital Signs Temperature: 96.9 F Blood Pressure: 136/61 Pulse: 74 Respirations: 19 Pulse Ox (%): 98 - Physical Exam General: Alert, In no apparent distress, Demented Respiratory: Clear to auscultation bilaterally, Normal air movement Cardiovascular: Regular rate/rhythm, Normal S1 S2, No murmurs Gastrointestinal: Normal bowel sounds, Soft and benign, Non-distended, No tenderness Musculoskeletal: Erythema, Tenderness Integumentary: Tenderness/swelling, Erythema, Warmth Neurological: Cranial nerves 3-12 intact, Abnormal sensation - Studies Medications List Reviewed: Yes Assessment & Plan - Problems (Diagnosis) (1) Foot osteomyelitis, left Current Visit: Yes Status: Acute (2) PAD (peripheral artery disease) Current Visit: Yes Status: Acute (3) DM (diabetes mellitus), type 2, uncontrolled, with hyperosmolarity Current Visit: Yes Status: Acute (4) HTN (hypertension) Current Visit: Yes Status: Acute (5) Dementia Current Visit: Yes Status: Acute - Plan 1. Continue with IV antibiotic 2. Continue with local wound care 3. Wound care consultation 4. Gentle IV hydration 5. awaiting for PICC line placement 6. Strict blood sugar monitoring 7. Pain control 8. cardiology consultation for arteriogram as an outpatient 9. GI and DVT prophylaxis Discharge Plan: Home Plan to discharge in: Greater than 2 days - Advance Directives Does patient have a Living Will: No Does patient have a Durable POA for Healthcare: No - Code Status/Comfort Care Code Status Assessed: Yes Code Status: Full Code Critical Care: No Time Spent Managing PTS Care (In Minutes): 35
[2023-03-09 07:40] LABS: Absolute Lymphocytes (CBC) 1.9 K/uL (0.7-4.9); Hematocrit 28.6 % (36.0-45.0); Lymphocytes % 26.6 % (15.3-44.8); MCV 89.5 fL (80-100); MPV 8.3 fL (7.6-11.3); RBC Red Blood Cell Count 3.19 M/uL (3.86-4.86)
[2023-03-09 08:08] LABS: Albumin 2.5 g/dL (3.4-5.0); Bilirubin Total 0.4 mg/dL (0.2-1.0); Magnesium 1.6 mg/dL (1.6-2.4); Potassium 3.9 mEq/L (3.5-5.1); Protein, Total 5.8 g/dL (6.4-8.2)
[2023-03-09] MEDS: INSULIN -REGULAR HUMAN 50 UNIT/0.5 ML ML SQ SCH ×2 (08:11→11:59)
[2023-03-09] MEDS: PIOGLITAZONE 15 MG TAB PO SCH (08:12)
[2023-03-09] MEDS: Levofloxacin500mg IV 500 MG/100 ML BAG IV SCH (08:12)
[2023-03-09] MEDS: ALOGLIPTIN BENZOATE 12.5 MG TABLET PO SCH (08:12)
[2023-03-09] MEDS: ASPIRIN EC 81 MG TAB PO SCH (08:13)
[2023-03-09] MEDS: ENOXAPARIN 30 MG/0.3 ML SQ SCH (08:13)
[2023-03-09] MEDS: METFORMIN HCL 500 MG TAB PO SCH (08:13)
--- NOTE | 2023-03-09 09:48 | P.PN ---
Date of Service: 03/09/23 Reason for Consult: Osteomyelitis Subjective: No new changes Patient sitting up in bed, not in distress. Denies any complaints at this time. No acute events reported overnight. PICC line in place. Plan for IV vancomycin x 6 weeks for osteomyelitis. Physical Examination - Vitals Temp Pulse Resp BP Pulse Ox 97.8 F 71 16 144/69 H 99 03/09/23 08:00 03/09/23 08:00 03/09/23 08:00 03/09/23 08:00 03/09/23 08:00 - Physical Examination General: Alert, In no apparent distress, Oriented x3 HEENT: Atraumatic, Normocephalic Neck: Supple, JVD not distended Respiratory: Clear to auscultation bilaterally, Normal air movement Cardiovascular: No edema, Normal S1 S2 Gastrointestinal: Normal bowel sounds, Soft and benign, Non-distended Musculoskeletal: No clubbing, No swelling Integumentary: Mild erythema left foot; Diabetic ulcer Left first toe Neurological: Normal speech, Normal tone, Normal affect, Dementia - Studies Laboratory Data - Reviewed Microbiology Data - Blood cultures 03/05 & 03/06: No growth to date Imagings Data: - MRI foot: "Moderate osteomyelitis is present primarily involving the distal phalanx of the great toe. There is early involvement of the distal aspect of the proximal phalanx as well as detailed. No drainable fluid collection seen." - Ultrasound doppler Left Leg 03/05: "Findings suspicious for significant peripheral vascular disease at the level of the lower leg." - Venous ultrasound left leg: "No sonographic evidence for deep vein thrombosis involving the left lower extremity." Assessment & Plan Problem List - Osteomyelitis - Diabetes Mellitus Type II - Hypertension - Hyperlipidemia - Diabetic ulcer of foot - Dementia Osteomyelitis Left Foot/ Diabetic Ulcer of Left Foot - MRI foot: "Moderate osteomyelitis is present primarily involving the distal phalanx of the great toe. There is early involvement of the distal aspect of the proximal phalanx as well as detailed. No drainable fluid collection seen." - Blood cultures: no growth to date - Levaquin discontinued 03/07-03/09 - On IV Vancomycin (started 03/07) - No leukocytosis; afebrile Recommendations - Osteomyelitis: Continue IV Vancomycin for 6 weeks duration (started 03/07) via PICC line. Home health pending - Discontinue Levaquin - Left first toe diabetic ulcer: iodosorb on wound (if iodosorb not available, paint wound with betadine); keep leg elevated when possible; avoid shoes that apply pressure to wound - Blood glucose control, goal BG <180 ID will follow up and monitor the patient closely. Case discussed with Petra Prater
[2023-03-09 10:13] VITALS: O2SAT 94
--- NOTE | 2023-03-09 14:37 | RAD REPORT ---
EXAM DESCRIPTION: RAD - Chest Single View - 03/09/2023 1:18 am CLINICAL HISTORY: The patient is 82 years old and is Female; PICC placement [facility] MAIN TECHNIQUE: Frontal view of the chest. COMPARISON: No relevant prior studies available. FINDINGS: LUNGS: Left basilar subsegmental atelectasis versus scarring. No acute focal consolidati on. PLEURAL SPACE: No pleural effusion. No pneumothorax. HEART: No cardiomegaly. MEDIASTINUM: Unremarkable. BONES/JOINTS: Right rotator cuff repair changes noted, with curvilinear calcification lateral to th e right humeral head suspected within a tendinous insertion. Multilevel spondylosis. VASCULATURE: Right upper extremity PICC tip terminates in the mid to distal SVC. Calcified atherosclerosis of the thoracic aorta. IMPRESSION: 1. No acute findings in the chest. 2. Right upper extremity PICC tip terminates in the mid to distal SVC. Electronically signed by: Demar Burns MD 03/09/2023 1:52 AM CDT Due to temporary technical issues with the PACS/Fluency reporting system, reports are being signed by the in house radiologists without review as a courtesy to insure prompt reporting. The interpreting radiologist is fully responsible for the content of the report.
[2023-03-09 16:13] VITALS: BP 161/67; TEMP 97.4
== END 2023-03-09 17:37 | disposition home health service (06) | DRG 638 ==
LOC: ER 20:15 → ERHOLD 03-06 03:21 → 4TH 03-06 20:43
PROVIDERS: ADMIT Hospitalist; ATTEND Internal Medicine Sleep Medicine
PROC: 02HV33Z Insertion of Infusion Device into Superior Vena Cava, Percutaneous Approach (ICD-10-PCS; principal; 2023-03-09)
DX: E11.69 Type 2 diabetes mellitus with other specified complication (principal); L03.116 Cellulitis of left lower limb; M86.8X7 Other osteomyelitis, ankle and foot; E11.00 Type 2 diabetes mellitus with hyperosmolarity without nonketotic hyperglycemic-hyperosmolar coma (NKHHC); E11.65 Type 2 diabetes mellitus with hyperglycemia; E11.51 Type 2 diabetes mellitus with diabetic peripheral angiopathy without gangrene; E11.621 Type 2 diabetes mellitus with foot ulcer; L97.529 Non-pressure chronic ulcer of other part of left foot with unspecified severity; I10 Essential (primary) hypertension; F32.A Depression, unspecified; E78.2 Mixed hyperlipidemia; F03.90 Unspecified dementia, unspecified severity, without behavioral disturbance, psychotic disturbance, mood disturbance, and anxiety; T50.916A Underdosing of multiple unspecified drugs, medicaments and biological substances, initial encounter; Z60.2 Problems related to living alone; Z88.0 Allergy status to penicillin; Z88.8 Allergy status to other drugs, medicaments and biological substances; Z79.82 Long term (current) use of aspirin; Z79.84 Long term (current) use of oral hypoglycemic drugs; Z90.49 Acquired absence of other specified parts of digestive tract; Z79.899 Other long term (current) drug therapy; Z90.710 Acquired absence of both cervix and uterus; Z91.148 Patient's other noncompliance with medication regimen for other reason
CPT/HCPCS: 36415; 36569; 71045; 80048; 80053; 80061; 80076; 80202; 82947; 83036; 83605; 83735; 83880; 84443; 85025; 85610; 86140; 87040; 93926; 93971; 96374; 96375; 99283; J0692; J1650; J1815; J7050

== ENCOUNTER 2023-03-17 20:40 | Emergency (ER) | payer OTHER ==
--- NOTE | 2023-03-17 22:42 | RAD REPORT ---
EXAM DESCRIPTION: RAD - Humerus Right - 03/17/2023 10:24 pm CLINICAL HISTORY: assess for PICC line fragment COMPARISON: No comparisons TECHNIQUE: Right humerus, one-view. FINDINGS: Radiopaque anchors of the level of the humeral head likely related to rotator cuff surgery . No radiopaque foreign body to suggest a PICC fragment. No fracture is identified. There is no dislo cation or periosteal reaction noted. No foreign body or other soft tissue abnormality. IMPRESSION: No evidence of a PICC fragment. No acute osseus abnormality.
--- NOTE | 2023-03-17 23:43 | ER ---
Nurse's Notes [facility] Name: Lorena Canas Age: 82 yrs Sex: Female : 1940 Arrival Date: 03/17/2023 Time: 20:40 Bed 12 Private MD: Diagnosis: Right arm extremity edema, right basilic vein partially occlusive thrombus. Complications from the PICC line removal Presentation: 03/17 21:01 Chief complaint: Patient states: right arm redness and swelling began 2 days prior s/p kl PICC line removal. Coronavirus screen: Vaccine status: Patient reports receiving the 2nd dose of the covid vaccine. Ebola Screen: Patient negative for fever greater than or equal to 101.5 degrees Fahrenheit, and additional compatible Ebola Virus Disease symptoms. Initial Sepsis Screen: Does the patient meet any 2 criteria? No. Patient's initial sepsis screen is negative. Does the patient have a suspected source of infection? Yes: Skin breakdown/wound. Risk Assessment: Do you want to hurt yourself or someone else? Patient reports no desire to harm self or others. 21:01 Method Of Arrival: Ambulatory kl 21:01 Acuity: RHONDA 3 kl Triage Assessment: 21:07 General: Appears in no apparent distress. comfortable, Behavior is calm, cooperative. kl Pain: Complains of pain in right hand. Derm: Skin is red. Musculoskeletal: Swelling present in right hand and right arm. Historical: - Home Meds: 21:02 aspirin 81 mg Oral TbEC 1 tab once daily [Active]; Razadyne ER 8 mg Oral C24P 2 caps kl once daily [Active]; levaquin 750mg IV daily [Active]; Januvia 100 mg oral tablet daily [Active]; Lantus U-100 Insulin 100 unit/mL Sub-Q solution daily [Active]; losartan 50 mg oral tablet once [Active]; metformin 500 mg Oral Tablet, Extended Release 24 hr 2 times per day [Active]; pravastatin 20 mg oral tablet once [Active]; vancomycin 1,000 mg intravenous Recon Soln daily [Active]; - PMHx: 21:02 Dementia; diabetes mellitus; Hypertensive disorder; urinary tract infection; kl osteomyelitis; - PSHx: 21:02 GALLBLADDER; hysterectomy; kl - Immunization history:: Adult Immunizations up to date. - Social history:: Smoking status: Patient denies any tobacco usage or history of. - Family history:: not pertinent. Screenin/30 00:05 [facility] ED Fall Risk Assessment (Adult) History of falling in the last 3 months, ll3 including since admission No falls in past 3 months (0 pts) Confusion or Disorientation No (0 pts) Intoxicated or Sedated No (0 pts) Impaired Gait No (0 pts) Mobility Assist Device Used No (0 pt) Altered Elimination No (0 pt) Score/Fall Risk Level 0 - 2 = Low Risk Oriented to surroundings, Maintained a safe environment, Educated pt \T\ family on fall prevention, incl call for assistance when getting out of bed. Abuse screen: Denies threats or abuse. Denies injuries from another. Nutritional screening: No deficits noted. Tuberculosis screening: No symptoms or risk factors identified. Vital Signs: 03/17 21:01 BP 173 / 62; Pulse 80; Resp 18; Temp 98.5(O); Pulse Ox 100% ; kl 21:08 BP 153 / 64; kl 03/18 00:05 BP 148 / 62; Pulse 82; Resp 16; Pulse Ox 99% on R/A; ll3 ED Course: 03/17 20:42 Patient arrived in ED. mr 21:02 Triage completed. kl 21:12 Michael Bernabe MD is Attending Physician. sp4 21:30 Arm band placed on Patient placed in an exam room, on a stretcher, on pulse oximetry. ll3 22:26 Humerus Right XRAY In Process Unspecified. EDMS 22:45 Extremity Venous Uni Ltd US In Process Unspecified. EDMS 03/18 00:05 Patient has correct armband on for positive identification. Bed in low position. Call ll3 light in reach. Side rails up X 1. Adult w/ patient. 00:05 No provider procedures requiring assistance completed. Patient did not have IV access ll3 during this emergency room visit. Administered Medications: No medications were administered Medication: 00:06 VIS not applicable for this client. ll3 Outcome: 03/17 23:43 Discharge ordered by . sp4 03/18 00:05 Discharged to home ambulatory, with family. ll3 Condition: stable Discharge instructions given to patient, family, Instructed on discharge instructions, follow up and referral plans. Demonstrated understanding of instructions, follow-up care. 00:06 Patient left the ED. ll3 Signatures: Dispatcher [employer] Frances Butler, RN ACE Catherine, Leslie Raymond Wong RN RN ll3 Michael Bernabe MD MD sp4
--- NOTE | 2023-03-17 23:44 | EDPHYS ---
Physician Documentation [facility] Name: Lorena Canas Age: 82 yrs Sex: Female : 1940 Arrival Date: 03/17/2023 Time: 20:40 Bed 12 Private MD: ED Physician Michael Bernabe HPI: 03/17 21:12 This 82 yrs old Female presents to ER via Ambulatory with complaints of PIC sp4 LINE ISSUE, [place] SENT PT C/O POSSIBLE BLOOT CLOT. 21:36 82-year-old female presents with right arm swelling associated with recent PICC line sp4 removal with concern for venous blood clot in the right arm. 23:32 Patient states she is being treated via IV antibiotics that will a PICC line. PICC line sp4 was removed from the right arm several days ago causing right arm swelling and edema also discoloration as well. Patient is here because there is concern for acute DVT in the right upper extremity. Patient reports discomfort but no significant pain. Historical: - Home Meds: 21:02 aspirin 81 mg Oral TbEC 1 tab once daily [Active]; Razadyne ER 8 mg Oral C24P 2 caps kl once daily [Active]; levaquin 750mg IV daily [Active]; Januvia 100 mg oral tablet daily [Active]; Lantus U-100 Insulin 100 unit/mL Sub-Q solution daily [Active]; losartan 50 mg oral tablet once [Active]; metformin 500 mg Oral Tablet, Extended Release 24 hr 2 times per day [Active]; pravastatin 20 mg oral tablet once [Active]; vancomycin 1,000 mg intravenous Recon Soln daily [Active]; - PMHx: 21:02 Dementia; diabetes mellitus; Hypertensive disorder; urinary tract infection; kl osteomyelitis; - PSHx: 21:02 GALLBLADDER; hysterectomy; kl - Immunization history:: Adult Immunizations up to date. - Social history:: Smoking status: Patient denies any tobacco usage or history of. - Family history:: not pertinent. ROS: 23:32 Constitutional: Negative for fever, chills, and weight loss, Eyes: Negative for injury, sp4 pain, redness, and discharge, ENT: Negative for injury, pain, and discharge, Neck: Negative for injury, pain, and swelling, Cardiovascular: Negative for chest pain, palpitations, and edema, Respiratory: Negative for shortness of breath, cough, wheezing, and pleuritic chest pain, Abdomen/GI: Negative for abdominal pain, nausea, vomiting, diarrhea, and constipation, Back: Negative for injury and pain, : Negative for injury, bleeding, discharge, and swelling, MS/Extremity: Negative for injury and deformity, positive for right arm swelling, redness, discoloration isolated to mostly forearm Skin: Negative for injury, rash, right forearm edema redness and Neuro: Negative for headache, weakness, numbness, tingling, and seizure, Psych: Negative for depression, anxiety, Allergy/Immunology: Negative for hives, rash, and allergies Endocrine: Negative for neck swelling, polydipsia, polyuria, polyphagia, and weight changes Hematologic/Lymphatic: Negative for swollen nodes, abnormal bleeding, and unusual bruising Exam: 23:32 Constitutional: This is a well developed, well nourished patient who is awake, alert, sp4 and in no acute distress. Head/Face: Normocephalic, atraumatic. Eyes: Pupils equal round and reactive to light, extra-ocular motions intact. Lids and lashes normal. Conjunctiva and sclera are not injected. Cornea within normal limits. Periorbital areas with no swelling, redness, or edema. ENT: Nares patent. No nasal discharge, no septal abnormalities noted. Tympanic membranes are normal and external auditory canals are clear. Oropharynx with no redness, swelling, or masses, exudates, or evidence of obstruction, uvula midline. Mucous membranes moist. Neck: Trachea midline, no thyromegaly or masses palpated, and no cervical lymphadenopathy. Supple, full range of motion without nuchal rigidity, or vertebral point tenderness. No Meningismus. Chest/axilla: Normal chest wall appearance and motion. Nontender with no deformity. No lesions are appreciated. Cardiovascular: Regular rate and rhythm with a normal S1 and S2. No gallops, murmurs, or rubs. Normal PMI, no JVD. No pulse deficits. Right forearm redness swelling and edema consistent with acute discoloration. Respiratory: Lungs have equal breath sounds bilaterally, clear to auscultation and percussion. No rales, rhonchi or wheezes noted. No increased work of breathing, no retractions or nasal flaring. Abdomen/GI: Soft, non-tender, with normal bowel sounds. No distension or tympany. No guarding or rebound. No evidence of tenderness throughout. Back: No spinal tenderness. No costovertebral tenderness. Skin: Warm, dry with normal turgor. Normal color with no rashes, no lesions, right forearm redness swelling and discoloration and edema. MS/ Extremity: Pulses equal, no cyanosis. Neurovascular intact. Full, normal range of motion. Intact peripheral pulses, positive for redness swelling discoloration in the right forearm there is also edematous right forearm. Left arm PICC line is present in the left upper arm Neuro: Awake and alert, GCS 15, oriented to person, place, time, and situation. Cranial nerves II-XII grossly intact. Motor strength 5/5 in all extremities. Sensory grossly intact. Psych: Awake, alert, with orientation to person, place and time. Behavior, mood, and affect are within normal limits Vital Signs: 21:01 BP 173 / 62; Pulse 80; Resp 18; Temp 98.5(O); Pulse Ox 100% ; kl 21:08 BP 153 / 64; kl 03/18 00:05 BP 148 / 62; Pulse 82; Resp 16; Pulse Ox 99% on R/A; ll3 MDM: 03/17 21:40 Patient medically screened. sp4 23:32 Differential Diagnosis altered mental status. Data reviewed: vital signs, nurses notes, sp4 old medical records, radiologic studies, doppler, plain films, ultrasound. ED course: Right upper extremity ultrasound unilateral duplex ultrasound revealed nonocclusive superficial thrombosis in the basilic vein, basilic vein appears incompletely compressible and shows internal echoes consistent with nonocclusive superficial thrombus, cephalic vein is patent. ED course: Right humerus x-ray was done revealing no evidence of a PICC line fragment and no acute osseous. . 03/17 21:37 Order name: Humerus Right XRAY; Complete Time: 23:29 sp4 03/17 21:38 Order name: Extremity Venous Uni Ltd sp4 Administered Medications: No medications were administered Disposition Summary: 03/17/23 23:43 Discharge Ordered Location: Home sp4 Problem: new sp4 Symptoms: are unchanged sp4 Condition: Stable sp4 Diagnosis - Right arm extremity edema, right basilic vein partially occlusive thrombus. sp4 Complications from the PICC line removal Followup: sp4 - With: Private Physician - When: 7 - 10 days - Reason: Recheck today's complaints Discharge Instructions: - Discharge Summary Sheet sp4 - Thrombophlebitis sp4 Forms: - Thank You Letter sp4 Signatures: Dispatcher [employer] Frances Butler RN Michael Stephen MD MD sp4
[2023-03-18 00:49] VITALS: TEMP 98.5
[2023-03-18 00:51] VITALS: BP 148/62; O2SAT 99
--- NOTE | 2023-03-19 13:03 | RAD REPORT ---
EXAM DESCRIPTION: US - Extremity Venous Uni Ltd - 03/17/2023 10:43 pm CLINICAL HISTORY: Swelling and redness Extremity Venous Uni Ltd TECHNIQUE: Real-time Duplex ultrasound of the right upper extremity veins with 2-D leslie scale, color Doppler flow, and spectral waveform analysis. COMPARISON: None available for comparison. FINDINGS: Right deep veins: The internal jugular, subclavian, axillary, and brachial veins are paten t without thrombus. Normal compressibility, augmentation response, and Doppler waveforms. Right superficial veins: Basilic vein is incompletely compressible, and shows internal echoes, consis tent with nonocclusive superficial thrombus.. Cephalic vein is patent. Soft tissues: Unremarkable. IMPRESSION: Findings consistent with nonocclusive superficial thrombosis in the basilic vein. Electronically signed by: Vick Barboza MD 03/17/2023 11:12 PM CDT Due to temporary technical issues with the PACS/Fluency reporting system, reports are being signed by the in house radiologist without review as a courtesy to ensure prompt reporting. The interpreting r adiologist is fully responsible for the content of the report.
== END 2023-03-18 00:06 | disposition home or self-care (01) ==
LOC: ER 20:40
DX: I82.611 Acute embolism and thrombosis of superficial veins of right upper extremity (principal); T82.818A Embolism due to vascular prosthetic devices, implants and grafts, initial encounter
CPT/HCPCS: 93971; 99283

== ENCOUNTER 2023-04-18 23:27 | Emergency (ER) | payer OTHER ==
--- NOTE | 2023-04-19 01:26 | ER ---
Nurse's Notes [facility] Name: Lorena Canas Age: 82 yrs Sex: Female : 1940 Arrival Date: 04/18/2023 Time: 23:27 Bed 5 Private MD: Diagnosis: Unspecified injury of head, initial encounter;scalp contusion, Forehead hematoma initial encounter Presentation: 04/18 23:41 Chief complaint: Patient states: "I was moving too quickly and fell and hit my head" pt as6 does take blood thinners but does not remember which one. negative LOC. Coronavirus screen: At this time, the client does not indicate any symptoms associated with coronavirus-19. Ebola Screen: No symptoms or risks identified at this time. Initial Sepsis Screen: Does the patient meet any 2 criteria? No. Patient's initial sepsis screen is negative. Does the patient have a suspected source of infection? No. Patient's initial sepsis screen is negative. Risk Assessment: Do you want to hurt yourself or someone else? Patient reports no desire to harm self or others. Onset of symptoms was April 18, 2023. 23:41 Method Of Arrival: Ambulatory as6 23:41 Acuity: RHONDA 3 as6 Triage Assessment: 04/19 01:37 General: Appears in no apparent distress. Behavior is calm, cooperative. Pain: Denies rv pain. Historical: - Allergies: 04/18 23:44 No Known Allergies; as6 - PMHx: 23:44 Dementia; osteomyelitis; urinary tract infection; Hypertensive disorder; diabetes as6 mellitus; - PSHx: 23:44 GALLBLADDER; hysterectomy; as6 - Immunization history:: Client reports receiving the 2nd dose of the Covid vaccine, modern. - Social history:: Smoking status: Patient denies any tobacco usage or history of. - Family history:: not pertinent. Screenin/01 01:37 [facility] ED Fall Risk Assessment (Adult) History of falling in the last 3 months, rv including since admission No falls in past 3 months (0 pts). Abuse screen: Denies threats or abuse. Denies injuries from another. Nutritional screening: No deficits noted. Tuberculosis screening: No symptoms or risk factors identified. Vital Signs: 04/18 23:41 BP 155 / 61; Pulse 84; Resp 18 S; Temp 98.2(TE); Pulse Ox 100% on R/A; Weight 66.68 kg as6 (R); Height 5 ft. 8 in. (R); Pain 0/10; 06 01:36 BP 137 / 63; Pulse 81; Resp 18; Temp 98; Pulse Ox 100% on R/A; rv 04/18 23:41 Body Mass Index 22.35 (66.68 kg, 172.72 cm) as6 04/18 23:41 Pain Scale: Adult as6 [place] Coma Score: 01:37 Eye Response: spontaneous(4). Motor Response: obeys commands(6). Verbal Response: rv oriented(5). Total: 15. ED Course: 04/18 23:30 Patient arrived in ED. ja2 23:44 Triage completed. as6 23:45 Michael Bernabe MD is Attending Physician. sp4 23:45 Arm band placed on. as6 23:50 Travis Gibson RN is Primary Nurse. rv 04/19 00:20 CT Head Brain wo Cont In Process Unspecified. EDMS 01:25 Edwar Garcia MD is Referral Physician. sp4 01:37 Patient has correct armband on for positive identification. Client placed on continuous rv cardiac and pulse oximetry monitoring. NIBP monitoring applied. 01:38 No provider procedures requiring assistance completed. Patient did not have IV access rv during this emergency room visit. Administered Medications: No medications were administered Medication: 01:37 VIS not applicable for this client. rv Outcome: 01:25 Discharge ordered by . sp4 01:38 Discharged to home ambulatory. rv 01:38 Condition: good 01:38 Discharge instructions given to patient, Instructed on discharge instructions, follow up and referral plans. Demonstrated understanding of instructions, follow-up care. 01:38 Patient left the ED. rv Signatures: Dispatcher [employer] EDID Travis Gibson, Tiffanie Carpenter RN, Ashby, RN RN as Michael Bernabe MD MD sp4
--- NOTE | 2023-04-19 01:26 | EDPHYS ---
Physician Documentation [facility] Name: Lorena Canas Age: 82 yrs Sex: Female : 1940 Arrival Date: 04/18/2023 Time: 23:27 Bed 5 Private MD: ED Physician Michael Bernabe HPI: 04/18 23:45 This 82 yrs old Female presents to ER via Ambulatory with complaints of Fall sp4 Injury, Head Injury-Adult. 23:55 Very pleasant 82-year-old female [facility] sp[facility] time she missed a step and fell forward striking her head on the floor rug. Occurrence was just prior to arrival. Patient has forehead hematoma. Patient also has right arm subclavian DVT, she takes Eliquis p.o. daily. PCP is Dr. Garcia . Historical: - Allergies: 23:44 No Known Allergies; as6 - PMHx: 23:44 Dementia; osteomyelitis; urinary tract infection; Hypertensive disorder; diabetes as6 mellitus; - PSHx: 23:44 GALLBLADDER; hysterectomy; as6 - Immunization history:: Client reports receiving the 2nd dose of the Covid vaccine, modern. - Social history:: Smoking status: Patient denies any tobacco usage or history of. - Family history:: not pertinent. ROS: 23:55 Constitutional: Negative for fever, chills, and weight loss, Eyes: Negative for injury, sp4 pain, redness, and discharge, ENT: Negative for injury, pain, and discharge, Neck: Negative for injury, pain, and swelling, Cardiovascular: Negative for chest pain, palpitations, and edema, Respiratory: Negative for shortness of breath, cough, wheezing, and pleuritic chest pain, Abdomen/GI: Negative for abdominal pain, nausea, vomiting, diarrhea, and constipation, Back: Negative for injury and pain, : Negative for injury, bleeding, discharge, and swelling, MS/Extremity: Negative for injury and deformity, Skin: Negative for injury, rash, there is forehead hematoma from recent head injury, also bilateral forearm hemorrhages from Eliquis Neuro: Negative for headache, weakness, numbness, tingling, and seizure, Psych: Negative for depression, anxiety, Allergy/Immunology: Negative for hives, rash, and allergies Endocrine: Negative for neck swelling, polydipsia, polyuria, polyphagia, and weight changes Hematologic/Lymphatic: Negative for swollen nodes, abnormal bleeding, and unusual bruising Exam: 23:55 Constitutional: This is a well developed, well nourished patient who is awake, alert, sp4 and in no acute distress. Head/Face: Normocephalic, mid forehead hematoma that is mild to moderate Eyes: Pupils equal round and reactive to light, extra-ocular motions intact. Lids and lashes normal. Conjunctiva and sclera are not injected. Cornea within normal limits. Periorbital areas with no swelling, redness, or edema. ENT: Nares patent. No nasal discharge, no septal abnormalities noted. Tympanic membranes are normal and external auditory canals are clear. Oropharynx with no redness, swelling, or masses, exudates, or evidence of obstruction, uvula midline. Mucous membranes moist. Neck: Trachea midline, no thyromegaly or masses palpated, and no cervical lymphadenopathy. Supple, full range of motion without nuchal rigidity, or vertebral point tenderness. No Meningismus. Chest/axilla: Normal chest wall appearance and motion. Nontender with no deformity. No lesions are appreciated. Cardiovascular: Regular rate and rhythm with a normal S1 and S2. No gallops, murmurs, or rubs. Normal PMI, no JVD. No pulse deficits. Respiratory: Lungs have equal breath sounds bilaterally, clear to auscultation and percussion. No rales, rhonchi or wheezes noted. No increased work of breathing, no retractions or nasal flaring. Abdomen/GI: Soft, non-tender, with normal bowel sounds. No distension or tympany. No guarding or rebound. No evidence of tenderness throughout. Back: No spinal tenderness. No costovertebral tenderness. Skin: Warm, dry with normal turgor. Normal color with no rashes, no lesions, and no evidence of cellulitis. MS/ Extremity: Pulses equal, no cyanosis. Neurovascular intact. Full, normal range of motion. Neuro: Awake and alert, GCS 15, oriented to person, place, time, and situation. Cranial nerves II-XII grossly intact. Motor strength 5/5 in all extremities. Sensory grossly intact. Psych: Awake, alert, with orientation to person, place and time. Behavior, mood, and affect are within normal limits Vital Signs: 23:41 BP 155 / 61; Pulse 84; Resp 18 S; Temp 98.2(TE); Pulse Ox 100% on R/A; Weight 66.68 kg as6 (R); Height 5 ft. 8 in. (R); Pain 0/10; 04/19 01:36 BP 137 / 63; Pulse 81; Resp 18; Temp 98; Pulse Ox 100% on R/A; rv 04/18 23:41 Body Mass Index 22.35 (66.68 kg, 172.72 cm) as6 04/18 23:41 Pain Scale: Adult as6 [place] Coma Score: 01:37 Eye Response: spontaneous(4). Motor Response: obeys commands(6). Verbal Response: rv oriented(5). Total: 15. MDM: 04/18 23:54 Patient medically screened. sp4 04/19 01:09 Differential diagnosis: abrasion, closed head injury, contusion, laceration. Data sp4 reviewed: vital signs, nurses notes, old medical records, radiologic studies, CT scan. ED course: There is no sign of acute intracranial abnormality. Frontal soft tissue hematoma.. 01:24 ED course: Dressing applied to the right elbow skin abrasion. Patient is stable for sp4 discharge home. Advised to continue all home medications including Eliquis for. 04/18 23:54 Order name: CT Head Brain wo Cont sp4 Administered Medications: No medications were administered Disposition Summary: 04/19/23 01:25 Discharge Ordered Location: Home sp4 Problem: new sp4 Symptoms: have improved sp4 Condition: Stable sp4 Diagnosis - Unspecified injury of head, initial encounter sp4 - scalp contusion, Forehead hematoma initial encounter sp4 Followup: sp4 - With: Edwar Garcia MD - When: 7 - 10 days - Reason: Recheck today's complaints Discharge Instructions: - Discharge Summary Sheet sp4 - Head Injury, Adult, [id number] sp4 Signatures: Dispatcher [employer] EDTravis Zamora RN RN Vitaly Ba RN RN as6 Michael Bernabe MD MD sp4
[2023-04-19 02:26] VITALS: O2SAT 100
[2023-04-19 02:27] VITALS: BP 137/63; TEMP 98
--- NOTE | 2023-04-19 19:08 | RAD REPORT ---
EXAM DESCRIPTION: CT - Head Brain Wo Cont - 04/19/2023 2:16 am CLINICAL HISTORY: The patient is 82 years old and is Female; acute closed head injury TECHNIQUE: Axial computed tomography images of the head/brain without intravenous contrast. Sagitt al and coronal reformatted images were created and reviewed. This CT exam was performed using one o r more of the following dose reduction techniques: automated exposure control, adjustment of the mA and/or kV according to patient size, and/or use of iterative reconstruction technique. COMPARISON: September 07, 2022. FINDINGS: Brain: Basal ganglia calcifications, similar to prior. Mild nonspecific white matter changes likely related to chronic microvascular ischemic diseas e. Mild cerebral atrophy. Remote left posterior parietal infarct. No hemorrhage. Ventricles: Unremarkable. No ventriculomegaly. Bones/joints: Unremarkable. No acute fracture. Soft tissues: Unremarkable. Sinuses: Unremarkable as visualized. Mastoid air cells: Unremarkable as visualized. No mastoid effusion. IMPRESSION: No acute intracranial abnormality. Electronically signed by: Ewrin Rdz MD 04/19/2023 1:05 AM CDT Due to temporary technical issues with the PACS/Fluency reporting system, reports are being signed by the in house radiologists without review as a courtesy to insure prompt reporting. The interpreting radiologist is fully responsible for the content of the report.
== END 2023-04-19 01:38 | disposition home or self-care (01) ==
LOC: ER 23:27
DX: S00.03XA Contusion of scalp, initial encounter (principal); S00.83XA Contusion of other part of head, initial encounter; S50.311A Abrasion of right elbow, initial encounter; Z79.01 Long term (current) use of anticoagulants
CPT/HCPCS: 70450; 99283

== ENCOUNTER → 2023-11-14 | Emergency (ER) | payer OTHER ==
--- NOTE | 2023-11-15 00:40 | EDPHYS ---
Physician Documentation [facility] Name: Lorena Canas Age: 83 yrs Sex: Female : 1940 Arrival Date: 11/14/2023 Time: 22:57 Bed 5 Private MD: ED Physician Dimitri Singleton HPI: 11/14 23:35 This 83 yrs old Female presents to ER via EMS with complaints of fall, rib pain. sb4 23:35 patient states she got up too quickly this evening and fell forward onto the floor. she sb4 landed on her left sided chest wall. she is complaining of mild pain to her left chest wall and wanted to make sure she did not have a fracture. did not hit her head or injure anything else, is not on blood thinners, did not lose consciousness, is not requesting any pain medication at this time. Historical: - Allergies: 23:17 PENICILLINS; ha1 23:17 Enalapril; ha1 - PMHx: 23:17 Dementia; diabetes mellitus; Hypertensive disorder; osteomyelitis; urinary tract ha1 infection; - PSHx: 23:17 GALLBLADDER; hysterectomy; ha1 - Immunization history:: Adult Immunizations unknown. - Social history:: Smoking status: unknown. ROS: 23:35 Constitutional: Negative for fever, chills, and weight loss, sb4 23:35 MS/extremity: Positive for injury or acute deformity, contusion, pain, of the left lateral anterior chest, 23:35 All other systems are negative, Exam: 23:35 Constitutional: This is a well developed, well nourished patient who is awake, alert, sb4 and in no acute distress. Head/Face: Normocephalic, atraumatic. Eyes: Extra-ocular motions intact. Periorbital areas with no swelling, redness, or edema. ENT: Mucous membranes moist. Cardiovascular: Regular rate and rhythm with a normal S1 and S2. Respiratory: Lungs have equal breath sounds bilaterally, clear to auscultation and percussion. No rales, rhonchi or wheezes noted. No increased work of breathing, no retractions or nasal flaring. Abdomen/GI: Soft, non-tender, no distension. Skin: Warm, dry with normal turgor. Normal color with no rashes, no lesions, and no evidence of cellulitis. MS/ Extremity: Pulses equal, no cyanosis. Neurovascular intact. Full, normal range of motion. Neuro: Awake and alert, GCS 15, oriented to person, place, time, and situation. Motor strength 5/5 in all extremities. Sensory grossly intact. 23:35 Chest/axilla: Inspection: normal, no acute changes, Palpation: tenderness, that is mild, of the left lateral anterior chest, that partially reproduces the patient's complaints, Vital Signs: 23:01 BP 154 / 55; Pulse 80; Resp 17 S; Temp 98.7(O); Pulse Ox 100% on R/A; Weight 62.6 kg; ha1 Height 5 ft. 5 in. ; 11/15 01:00 BP 138 / 66; Pulse 81; Resp 18; Temp 98; Pulse Ox 99% ; rv 11/14 23:01 Body Mass Index 22.96 (62.60 kg, 165.1 cm) ha1 MDM: 11/14 23:01 Patient medically screened. sb4 23:35 Differential diagnosis: contusion, fracture. sb4 11/15 00:27 Independent interpretation of the following test(s) in the Emergency Department X-Ray: sb4 My interpretation is my interpretation of the chest xray and ribs images are no acute fracture or evidence of pneumothorax. 00:39 Data reviewed: vital signs, nurses notes, radiologic studies, and as a result, I will sb4 discharge patient. Counseling: I had a detailed discussion with the patient and/or guardian regarding the historical points, exam findings, and any diagnostic results supporting the discharge/admit diagnosis, radiology results, to return to the emergency department if symptoms worsen or persist or if there are any questions or concerns that arise at home. 11/14 23:16 Order name: Ribs Left XRAY sb4 11/14 23:16 Order name: Chest Single View XRAY sb4 Administered Medications: No medications were administered Disposition Summary: 11/15/23 00:39 Discharge Ordered Notes: Location: Home sb4 Problem: new sb4 Symptoms: are unchanged sb4 Condition: Stable sb4 Diagnosis - Rib contusion sb4 Followup: sb4 - With: Emergency Department - When: As needed - Reason: Trouble breathing, Worsening of condition Discharge Instructions: - Discharge Summary Sheet sb4 - Rib Contusion sb4 Forms: - Medication Reconciliation Form sb4 - Thank You Letter sb4 - Antibiotic Education sb4 - Prescription Opioid Use sb4 - Patient Portal Instructions sb4 - Leadership Thank You Letter sb4 Signatures: Dispatcher [employer] Yumiko Mijares RN RN Bailey Cage PA-C PA-C sb4
--- NOTE | 2023-11-15 00:40 | ER ---
Nurse's Notes [facility] Name: Lorena Canas Age: 83 yrs Sex: Female : 1940 Arrival Date: 11/14/2023 Time: 22:57 Bed 5 Private MD: Diagnosis: Rib contusion Presentation: 11/14 23:01 Chief complaint: EMS states: 83 year old female was getting out of bed and fell. ha1 reports soreness on the left side of rib cage No LOC. 23:01 Method Of Arrival: EMS: [facility] ha 23:01 Coronavirus screen: Vaccine status:. Ebola Screen: No symptoms or risks identified at 1 this time. Initial Sepsis Screen: Does the patient meet any 2 criteria? No. Patient's initial sepsis screen is negative. Does the patient have a suspected source of infection? No. Patient's initial sepsis screen is negative. Risk Assessment: Do you want to hurt yourself or someone else? Patient reports no desire to harm self or others. Onset of symptoms was November 14, 2023. 23:01 Acuity: RHONDA 4 ha1 Triage Assessment: 23:01 General: Appears comfortable, Behavior is calm, cooperative. Pain: Complains of pain in ha1 left upper quadrant Pain does not radiate. Pain currently is 5 out of 10 on a pain scale. Quality of pain is described as throbbing. Neuro: Level of Consciousness is awake, alert, obeys commands, Oriented to person, place, time, situation. Cardiovascular: Capillary refill < 3 seconds Patient's skin is warm and dry. Respiratory: Airway is patent Trachea midline Respiratory effort is even, unlabored, Respiratory pattern is regular, symmetrical. :. Derm: Skin is pink, warm \T\ dry. Historical: - Allergies: 23:17 PENICILLINS; ha1 23:17 Enalapril; ha1 - PMHx: 23:17 Dementia; diabetes mellitus; Hypertensive disorder; osteomyelitis; urinary tract ha1 infection; - PSHx: 23:17 GALLBLADDER; hysterectomy; ha1 - Immunization history:: Adult Immunizations unknown. - Social history:: Smoking status: unknown. Screenin:20 Abuse screen: Denies threats or abuse. Denies injuries from another. Nutritional ha1 screening: No deficits noted. Tuberculosis screening: No symptoms or risk factors identified. 11/15 00:59 [facility] ED Fall Risk Assessment (Adult) History of falling in the last 3 months, rv including since admission Yes- single mechanical fall (1 pt) Score/Fall Risk Level 3 or more points = High Risk Oriented to surroundings, Maintained a safe environment, Educated pt \T\ family on fall prevention, incl call for assistance when getting out of bed, Assessed \T\ reinforced patient's understanding of fall precautions. Assessment: 11/14 23:01 Reassessment: see triage assessment. ha1 11/15 00:00 Reassessment: Patient and/or family updated on plan of care and expected duration. Pain ha1 level reassessed. Patient is alert, oriented x 3, equal unlabored respirations, skin warm/dry/pink. Vital Signs: 11/14 23:01 BP 154 / 55; Pulse 80; Resp 17 S; Temp 98.7(O); Pulse Ox 100% on R/A; Weight 62.6 kg; ha1 Height 5 ft. 5 in. ; 11/15 01:00 BP 138 / 66; Pulse 81; Resp 18; Temp 98; Pulse Ox 99% ; rv 11/14 23:01 Body Mass Index 22.96 (62.60 kg, 165.1 cm) ha1 ED Course: 11/14 23:01 Patient arrived in ED. sb4 23:01 Bailey Rankin PA-C is PHCP. sb4 23:01 Dimitri Singleton MD is Attending Physician. sb4 23:17 Triage completed. ha1 11/15 00:10 Ribs Left XRAY In Process Unspecified. EDMS 00:10 Chest Single View XRAY In Process Unspecified. EDMS 01:00 Patient has correct armband on for positive identification. Client placed on continuous rv cardiac and pulse oximetry monitoring. NIBP monitoring applied. 01:00 No provider procedures requiring assistance completed. Patient did not have IV access rv during this emergency room visit. Administered Medications: No medications were administered Medication: 00:59 VIS not applicable for this client. rv Outcome: 00:39 Discharge ordered by . sb4 01:00 Discharged to home ambulatory, with family, rv 01:00 Condition: good 01:00 Discharge instructions given to patient, family, Instructed on discharge instructions, follow up and referral plans. Demonstrated understanding of instructions, follow-up care, 01:01 Patient left the ED. rv Signatures: Dispatcher [employer] Travis Bonner RN RN rv Ayala, Heidy, RN RN haBailey Nunes, VICTOR HUGO GAY sb4
[2023-11-15 07:16] VITALS: BP 138/66; TEMP 98; O2SAT 99
--- NOTE | 2023-11-15 13:30 | RAD REPORT ---
EXAM DESCRIPTION: RAD - Chest Single View - 11/15/2023 12:08 am CLINICAL HISTORY: PAIN TECHNIQUE: Frontal and oblique views of the left ribs. COMPARISON: No relevant prior studies available. FINDINGS: Lungs: Patchy left basilar opacification. Pleural space: Unremarkable. No pneumothorax. Bones/joints: No acute fracture. Multilevel spondylosis. Vasculature: Left upper quadrant embolization coils. * A single impression for all exams can be found at the end of this report EXAM DESCRIPTION: XR Chest, 1 View CLINICAL HISTORY: PAIN TECHNIQUE: Frontal view of the chest. COMPARISON: No relevant prior studies available. FINDINGS: Lungs: Patchy left basilar opacification. Pleural space: Unremarkable. No pneumothorax. Heart: Unremarkable. No cardiomegaly. Mediastinum: Unremarkable. Normal mediastinal contour. Bones/joints: Multilevel spondylosis. No acute fracture. Right humeral head suture anchors. Vasculature: Thoracic aortic atherosclerosis. * A single impression for all exams can be found at the end of this report IMPRESSION: XR Left Ribs, 2 Views: 1. No acute injury. 2. Left basilar infiltrate. XR Chest, 1 View: Left basilar infiltrate. Electronically signed by: Cortez Huff MD 11/15/2023 12:59 AM CUMULATIVE EFFECTS ANALYST Due to temporary technical issues with the PACS/Fluency reporting system, reports are being signed by the in house radiologists without review as a courtesy to insure prompt reporting. The interpreting radiologist is fully responsible for the content of the report.
--- NOTE | 2023-11-15 13:44 | RAD REPORT ---
EXAM DESCRIPTION: RAD - Ribs Left - 11/15/2023 12:08 am CLINICAL HISTORY: PAIN TECHNIQUE: Frontal and oblique views of the left ribs. COMPARISON: No relevant prior studies available. FINDINGS: Lungs: Patchy left basilar opacification. Pleural space: Unremarkable. No pneumothorax. Bones/joints: No acute fracture. Multilevel spondylosis. Vasculature: Left upper quadrant embolization coils. * A single impression for all exams can be found at the end of this report EXAM DESCRIPTION: XR Chest, 1 View CLINICAL HISTORY: PAIN TECHNIQUE: Frontal view of the chest. COMPARISON: No relevant prior studies available. FINDINGS: Lungs: Patchy left basilar opacification. Pleural space: Unremarkable. No pneumothorax. Heart: Unremarkable. No cardiomegaly. Mediastinum: Unremarkable. Normal mediastinal contour. Bones/joints: Multilevel spondylosis. No acute fracture. Right humeral head suture anchors. Vasculature: Thoracic aortic atherosclerosis. * A single impression for all exams can be found at the end of this report IMPRESSION: XR Left Ribs, 2 Views: 1. No acute injury. 2. Left basilar infiltrate. XR Chest, 1 View: Left basilar infiltrate. Electronically signed by: Cortez Huff MD 11/15/2023 12:59 AM TECHNICAL TRAINING COORDINATOR Due to temporary technical issues with the PACS/Fluency reporting system, reports are being signed by the in house radiologists without review as a courtesy to insure prompt reporting. The interpreting radiologist is fully responsible for the content of the report.
== END ==
LOC: ER 22:57
DX: S20.212A Contusion of left front wall of thorax, initial encounter (principal); W18.30XA Fall on same level, unspecified, initial encounter; F03.90 Unspecified dementia, unspecified severity, without behavioral disturbance, psychotic disturbance, mood disturbance, and anxiety; I10 Essential (primary) hypertension; Z88.0 Allergy status to penicillin; Z88.8 Allergy status to other drugs, medicaments and biological substances
CPT/HCPCS: 71045; 99283

== ENCOUNTER → 2024-01-10 | Emergency (ER) | payer OTHER ==
[2024-01-10 18:19] LABS: Absolute Lymphocytes (CBC) 2.2 K/uL (0.7-4.9); Hematocrit 30.8 % (36.0-45.0); Lymphocytes % 19.4 % (15.3-44.8); MCV 88.6 fL (80-100); MPV 7.7 fL (7.6-11.3); Platelets 241 thou/uL (152-406); RBC Red Blood Cell Count 3.47 M/uL (3.86-4.86)
--- NOTE | 2024-01-10 18:25 | RAD REPORT ---
[facility] CLINICAL HISTORY: fall COMPARISON: Chest Single View dated 11/15/2023; Chest Single View dated 03/09/2023; Chest Single View dated 09/07/2022; CHEST SINGLE VIEW dated 07/10/2009 TECHNIQUE: Portable AP view of the chest. FINDINGS: The lungs are clear. No pneumothorax or effusion. The cardiomediastinal contours are unre markable. IMPRESSION: No acute cardiopulmonary process.
[2024-01-10 18:28] LABS: Protime INR 1.07
[2024-01-10 18:37] LABS: BUN Blood Urea Nitrogen 30 mg/dL (7-18); Bicarbonate 26 mEq/L (21-32); Glomerular Filtration Rate 47 ml/min (=/>90); Glucose Level 133 mg/dL (74-106); Potassium 3.9 mEq/L (3.5-5.1); Sodium Level 138 mEq/L (136-145)
[2024-01-10 18:42] LABS: Troponin High Sensitivity < 3.0 pg/mL (<58.9)
--- NOTE | 2024-01-10 19:12 | RAD REPORT ---
EXAM DESCRIPTION: CT - [id number] - 01/10/2024 6:35 pm CLINICAL HISTORY: fall COMPARISON: No comparisons TECHNIQUE: Axial thin cut noncontrast CT images of the head were obtained. Axial thin cut noncontrast CT images of the cervical spine were obtained. Multiplanar reformatted images were generated and reviewed. All CT scans are performed using dose optimization technique as appropriate and may include automated exposure control or mA/KV adjustment according to patient size. FINDINGS: CT HEAD WITHOUT CONTRAST: No acute hemorrhage, hydrocephalus or extra-axial collection is identified.No areas of brain edema or midline shift. The paranasal sinuses and mastoids are clear.The calvarium is intact. CT CERVICAL SPINE WITHOUT CONTRAST: No fracture or subluxation.No prevertebral soft tissues swelling is identified. IMPRESSION: No acute traumatic intracranial or cervical spine findings.
--- NOTE | 2024-01-10 19:32 | RAD REPORT ---
EXAM DESCRIPTION: CT - Pelvis Wo Cont - 01/10/2024 6:37 pm CLINICAL HISTORY: fall COMPARISON: No comparisons TECHNIQUE: Thin cut axial CT imaging of the pelvis was performed without IV contrast. Multiplanar re formats were generated and reviewed. All CT scans are performed using dose optimization technique as appropriate and may include automated exposure control or mA/KV adjustment according to patient size. FINDINGS: No dilated bowel loops or bowel wall thickening. No free air, free fluid or inflammatory s tranding. Small right inguinal hernia containing fat. No mass or bulky lymphadenopathy. The urinary b ladder is without significant finding. Status post hysterectomy. No acute fractures or subluxation. Degenerative changes at L5-S1 with disc height loss, moderate righ t and mild left neural foraminal narrowing. Mild hip joint degenerative changes. Mineralization of th e acetabular labrum more so on the right. IMPRESSION: No acute osseous abnormality of the pelvis. Incidental findings including a small right inguinal fat containing hernia.
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
[2024-01-10 20:15] VITALS: BP 144/57; O2SAT 100
--- NOTE | 2024-01-14 14:42 | EKG ---
Test Date: 2024-01-10 Test Time: 17:59:30 Mining Teacher: KHUSHI MEASUREMENT RESULTS: Intervals: Rate: 69 CT: 230 QRSD: 80 QT: 416 QTc: 445 [place]: P: 73 CT: 230 QRS: 53 T: 93 INTERPRETIVE STATEMENTS: Sinus rhythm with 1st degree AV block Possible Anterior infarct, age undetermined Abnormal ECG Compared to ECG 09/14/2022 08:47:52 No significant changes Electronically Signed On 01-14-24 14:31:36 PASTING INSPECTOR by Walker Downey
== END ==
LOC: ER 16:49
DX: R51.9 Headache, unspecified (principal); M79.10 Myalgia, unspecified site; F03.90 Unspecified dementia, unspecified severity, without behavioral disturbance, psychotic disturbance, mood disturbance, and anxiety; E11.9 Type 2 diabetes mellitus without complications; I10 Essential (primary) hypertension; Z88.0 Allergy status to penicillin; Z88.8 Allergy status to other drugs, medicaments and biological substances
CPT/HCPCS: 36415; 70450; 71045; 72125; 72192; 80048; 84484; 85025; 85610; 85730; 93005

== ENCOUNTER 2024-08-19 23:37 | Emergency (ER) | payer OTHER ==
[2024-08-20 00:29] LABS: Absolute Basophils 0.1 K/uL (0-0.5); Absolute Eosinophils 0.1 K/uL (0-0.5); Absolute Lymphocytes (CBC) 2.6 K/uL (0.7-4.9); Absolute Monocytes 0.8 K/uL (0.1-1.3); Absolute Neutrophil 6.2 K/uL (1.8-8.0); Eosinophils % 1.3 % (0-4.4); Hematocrit 30.7 % (36.0-45.0); Hemoglobin 10.7 g/dL (12.0-15.0); MCH 31.3 pg (27.0-35.0); MCHC 34.8 g/dL (32.0-36.0); MCV 89.8 fL (80-100); MPV 7.9 fL (7.6-11.3); Monocytes % 8.5 % (3.3-12.3); Neutrophils % 63.2 % (41.7-73.7); Platelets 261 thou/uL (152-406); RBC Red Blood Cell Count 3.42 M/uL (3.86-4.86); Red Cell Distribution Width 13.8 % (12.1-15.2)
[2024-08-20 00:32] LABS: PT Prothrombin Time 11.4 SECONDS (9.4-12.5); Protime INR 1.02
[2024-08-20 00:42] LABS: ALT/SGPT 17 U/L (13-56); AST/SGOT 16 U/L (15-37); Albumin 2.8 g/dL (3.4-5.0); Albumin/Globulin Ratio 0.6 (1.1-1.8); Alkaline Phosphatase 77 U/L (45-117); Anion Gap 9.8 mEq/L (5.0-15.0); BUN Blood Urea Nitrogen 23 mg/dL (7-18); Bicarbonate 26 mEq/L (21-32); Bilirubin Total 0.4 mg/dL (0.2-1.0); Globulin 4.6 g/dL (2.3-3.5); Glomerular Filtration Rate 45 ml/min (=/>90); Glucose Level 164 mg/dL (74-106); Magnesium 1.6 mg/dL (1.6-2.4); Potassium 3.8 mEq/L (3.5-5.1); Protein, Total 7.4 g/dL (6.4-8.2); Sodium Level 136 mEq/L (136-145)
[2024-08-20 00:44] LABS: Bilirubin Direct < 0.2 mg/dL (0-0.2); Bilirubin Indirect, Calculated 0.2 mg/dL (0.2-0.8); Troponin High Sensitivity < 3.0 pg/mL (<58.9)
--- NOTE | 2024-08-20 01:37 | RAD REPORT ---
EXAM: CT Head Without Intravenous Contrast CLINICAL HISTORY: The patient is 84 years old and is Female; MENTAL STATUS CHANGE TECHNIQUE: Axial computed tomography images of the head/brain without intravenous contrast. Sagit del and coronal reformatted images were created and reviewed. This CT exam was performed using one or more of the following dose reduction techniques: automated exposure control, adjustment of t he mA and/or kV according to patient size, and/or use of iterative reconstruction technique. COMPARISON: No relevant prior studies available. FINDINGS: Brain: Basal ganglia calcification. Mild nonspecific white matter changes likely related to chronic microvascular ischemic diseas e. No hemorrhage. Ventricles: Unremarkable. No ventriculomegaly. Bones/joints: Unremarkable. No acute fracture. Soft tissues: Unremarkable. Sinuses: Unremarkable as visualized. Mastoid air cells: Unremarkable as visualized. No mastoid effusion. IMPRESSION: No acute intracranial abnormality. Electronically signed by: Erwin Rdz MD 08/20/2024 12:59 AM CDT RP 8 Due to temporary technical issues with the PACS/Pretty in my Pocket (PRIMP) reporting system, reports are being nasra d by the in-house radiologist without review as a courtesy to ensure prompt reporting the interpreting radiologist is fully responsible for the content of the report. Transcribed Date/Time: 08/20/2024 1:37 AM
[2024-08-20 01:59] LABS: PTT, Activated Partial Thromb 23.8 SECONDS (24.3-36.9)
[2024-08-20 02:26] LABS: Renal Epithelial <5 /HPF (None Seen); Specific Gravity 1.009 (1.005-1.030); Sqamous Epithelial <5 /HPF (None Seen); Urine Bacteria <20 /HPF (<20); Urine Bilirubin NEGATIVE (Negative); Urine Blood Negative (Negative); Urine Clarity Turbid (Clear); Urine Color Colorless (Yellow); Urine Culture Reflex Order REFLEXED; Urine Glucose NEGATIVE (Negative); Urine Ketones NEGATIVE (Negative); Urine Microscopic Reflex YN ORDER UMIC; Urine Nitrite NEGATIVE (Negative); Urine Protein TRACE (Negative); Urine Urobilinogen Normal (Normal); Urine WBC 20-50 /HPF (<5); Urine pH 6.5 (5.0-7.0)
--- NOTE | 2024-08-20 02:51 | EDPHYS ---
Physician Documentation [facility] Name: Lorena Canas Age: 84 yrs Sex: Female : 1940 Arrival Date: 08/19/2024 Time: 23:37 Bed 4 Private MD: ED Physician Delfina Mckeon HPI: 08/19 23:56 This 84 yrs old Female presents to ER via Unassigned with complaints of altered mental sp3 status. 23:56 84-year-old female with history of dementia and PMH above presents via EMS from nursing [facility] facility for chief complaint altered mental status which is now resolved. History, physical and ROS severely limited secondary to dementia. Per EMS patient was a little altered and not "her normal self". No full syncope or full loss of consciousness reported. EMS arrived to find patient with pulse of 55 and blood pressure in the 90 systolic range. Patient was alert oriented and vital signs improved without any intervention. Patient was transported here without any complication or incident. Currently patient has no complaints and wishes to go home.. Historical: - Allergies: 23:43 Enalapril; kj2 23:43 PENICILLINS; kj2 - PMHx: 08/20 00:11 Dementia; diabetes mellitus; Hypertensive disorder; osteomyelitis; urinary tract kj2 infection; - PSHx: 02:29 GALLBLADDER; hysterectomy; kj2 - Immunization history:: Adult Immunizations unknown. - Infectious Disease History:: Denies. - Social history:: Smoking status: unknown. ROS: 00:06 Unable to obtain ROS due to baseline dementia, sp3 Exam: 00:06 Constitutional: This is a well developed, well nourished patient who is awake, alert, sp3 and in no acute distress. Head/Face: Normocephalic, atraumatic. Eyes: Pupils equal round and reactive to light, extra-ocular motions intact. Lids and lashes normal. Conjunctiva and sclera are non-icteric and not injected. Cornea within normal limits. Periorbital areas with no swelling, redness, or edema. ENT: Nares patent. No nasal discharge, no septal abnormalities noted. External auditory canals are clear. Oropharynx with no redness, swelling, or masses, exudates, or evidence of obstruction, uvula midline. Mucous membranes moist. Neck: Trachea midline, no thyromegaly or masses palpated, and no cervical lymphadenopathy. Supple, full range of motion without nuchal rigidity, or vertebral point tenderness. No Meningismus. Chest/axilla: Normal chest wall appearance and motion. Nontender with no deformity. No lesions are appreciated. Cardiovascular: Regular rate and rhythm with a normal S1 and S2. No gallops, murmurs, or rubs. Normal PMI, no JVD. No pulse deficits. Respiratory: Lungs have equal breath sounds bilaterally, clear to auscultation and percussion. No rales, rhonchi or wheezes noted. No increased work of breathing, no retractions or nasal flaring. Abdomen/GI: Soft, non-tender, with normal bowel sounds. No distension or tympany. No guarding or rebound. No evidence of tenderness throughout. Back: No spinal tenderness. No costovertebral tenderness. Full range of motion. Skin: Warm, dry with normal turgor. Normal color with no rashes, no lesions, and no evidence of cellulitis. MS/ Extremity: Pulses equal, no cyanosis. Neurovascular intact. Full, normal range of motion. Psych: Awake, alert, with orientation to person, place and time. Behavior, mood, and affect are within normal limits. 01:35 ECG was reviewed by the Attending Physician. EKG demonstrates normal sinus rhythm at 60 sp3 bpm with a first-degree AV block of 238 MA interval, normal axis, normal QRS, normal axis ST segments without evidence of acute ischemia. Vital Signs: 08/19 23:43 BP 154 / 62; Pulse 66; Resp 18; Temp 97.9; Pulse Ox 97% on R/A; kj2 08/20 00:00 BP 158 / 61; Pulse 66; Resp 18; Temp 98; Pulse Ox 96% on R/A; kj2 02:18 BP 152 / 65; Pulse 69; Resp 18; Pulse Ox 100% on R/A; kj2 03:20 BP 147 / 66; Pulse 71; Resp 17 S; Temp 97.5(O); Pulse Ox 100% on R/A; lg3 MDM: 08/19 23:43 Patient medically screened. sp3 08/20 00:07 Data reviewed: vital signs, nurses notes, old medical records, lab test result(s), EKG, sp3 radiologic studies. ED course: 84-year-old female with a now resolved reported altered mental status and potential near syncope. Vital signs are normal. Patient has no symptoms and physical exam is normal other than her mental status due to dementia. No focal symptoms noted. Will obtain CT scan of the head, laboratory values and urine analysis and if negative safely discharge patient back to facility. Clinically I am at highly suspicious for sepsis, shock, TIA/CVA spectrum, ACS, intracranial hemorrhage, or any other critical process at this time.. 02:48 ED course: Possible UTI on urinalysis. We will treat with Bactrim p.o. and discharge sp3 patient home after Rocephin IV 1 g IV.. 08/19 23:44 Order name: Basic Metabolic Panel; Complete Time: 01:35 sp3 08/19 23:44 Order name: CBC with Diff; Complete Time: :35 sp3 08/19 23:44 Order name: Hepatic Function; Complete Time: 01:35 sp3 08/19 23:44 Order name: Magnesium; Complete Time: 01:35 sp3 08/19 23:44 Order name: Protime (+inr); Complete Time: 02:26 sp3 08/19 23:44 Order name: Ptt, Activated; Complete Time: 02:26 sp3 08/19 23:44 Order name: Troponin High Sensitivity; Complete Time: 01:35 sp3 08/19 23:44 Order name: Urinalysis w/ reflexes; Complete Time: 02:47 sp3 08/20 02:49 Order name: Urine Culture EDTN 08/19 23:44 Order name: CT Head Brain wo Cont sp3 08/19 23:44 Order name: Chest Single View XRAY sp3 08/19 23:44 Order name: Cardiac monitoring; Complete Time: 00:18 sp3 08/19 23:44 Order name: EKG - Nurse/Tech; Complete Time: 00:18 sp3 08/19 23:44 Order name: IV Saline Lock; Complete Time: 00:19 sp3 08/19 23:44 Order name: Labs collected and sent; Complete Time: 00:07 sp3 08/19 23:44 Order name: NPO; Complete Time: 00:19 sp3 08/19 23:44 Order name: O2 Per Protocol; Complete Time: 00:07 sp3 08/19 23:44 Order name: O2 Sat Monitoring; Complete Time: 00:19 sp3 Administered Medications: 03:19 Drug: Rocephin IV 1 grams IV at bolus once; Given slow IV push per pharmacy lg3 instructions Route: IV; Rate: bolus; Site: left antecubital; 03:19 Follow up: Response: No adverse reaction; IV Status: Completed infusion; IV Intake: [id number] Point of Care Testing: Blood Glucose: 02:28 Blood Glucose: 164 mg/dL; kj2 Ranges: Critical Glucose Levels:Adult <50 mg/dl or >400 mg/dl <40 mg/dl or >180 mg/dl Disposition Summary: 08/20/24 02:50 Discharge Ordered Notes: Location: Home sp3 Condition: Stable sp3 Diagnosis - Urinary tract infection, altered mental status resolved sp3 Followup: sp3 - With: Private Physician - When: Upon discharge from the Emergency Department - Reason: Continuance of care Discharge Instructions: - Discharge Summary Sheet sp3 - Urinary Tract Infection, Adult sp3 Forms: - Medication Reconciliation Form sp3 - Antibiotic Education sp3 - Prescription Opioid Use sp3 - Patient Portal Instructions sp3 - Leadership Thank You Letter sp3 Prescriptions: - Bactrim DS 800-160 mg Oral tablet - take 1 tablet ORAL route every 12 hours for 5 days; 10 tablet; Refills: 0, sp3 Product Selection Permitted Signatures: Dispatcher [employer] EDMS Luz Mccormack RN RN lg3 Deflina Mckeon MD MD sp3 Delores Hedrick RN RN kj2 Corrections: (The following items were deleted from the chart) 00:06 10/ 23:56 84-year-old female with history of dementia and PMH above presents via EMS sp3 from nursing facility for chief complaint altered mental status which is now resolved.. sp3
--- NOTE | 2024-08-20 02:51 | ER ---
Nurse's Notes [facility] Name: Lorena Canas Age: 84 yrs Sex: Female : 1940 Arrival Date: 08/19/2024 Time: 23:37 Bed 4 Private MD: Diagnosis: Urinary tract infection, altered mental status resolved Presentation: 08/19 23:43 Chief complaint: EMS states: syncopal episode, slumped in doorway, sweaty,pale, slowly kj2 responsive. Coronavirus screen: At this time, the client does not indicate any symptoms associated with coronavirus-19. Ebola Screen: No symptoms or risks identified at this time. Initial Sepsis Screen: Does the patient meet any 2 criteria? No. Patient's initial sepsis screen is negative. Does the patient have a suspected source of infection? No. Patient's initial sepsis screen is negative. Risk Assessment: Do you want to hurt yourself or someone else? Patient reports no desire to harm self or others. 23:43 Method Of Arrival: EMS: [facility] 23:43 Acuity: RHONDA 3 kj2 23:43 Onset of symptoms was August 19, 2024. kj2 Triage Assessment: 23:43 General: Appears in no apparent distress. Behavior is calm, cooperative. Pain: Denies kj2 pain. Neuro: Level of Consciousness is awake, alert, Oriented to person, place, situation, Reports a syncopal episode. Cardiovascular: Patient's skin is warm and dry. Respiratory: Airway is patent Respiratory effort is even, unlabored. GI: No signs and/or symptoms were reported involving the gastrointestinal system. : No signs and/or symptoms were reported regarding the genitourinary system. Historical: - Allergies: 23:43 Enalapril; kj2 23:43 PENICILLINS; kj2 - PMHx: 08/20 00:11 Dementia; diabetes mellitus; Hypertensive disorder; osteomyelitis; urinary tract kj2 infection; - PSHx: 02:29 GALLBLADDER; hysterectomy; kj2 - Immunization history:: Adult Immunizations unknown. - Infectious Disease History:: Denies. - Social history:: Smoking status: unknown. Screenin:17 [facility] ED Fall Risk Assessment (Adult) History of falling in the last 3 months, kj2 including since admission No falls in past 3 months (0 pts) Confusion or Disorientation No (0 pts) Intoxicated or Sedated No (0 pts) Impaired Gait Yes (1 pt) Mobility Assist Device Used Yes (1 pt) Altered Elimination No (0 pt) Score/Fall Risk Level 0 - 2 = Low Risk Maintained a safe environment, Educated pt \T\ family on fall prevention, incl call for assistance when getting out of bed, Hourly rounding (assess needs \T\ fall precautionary measures) done. Abuse screen: Denies threats or abuse. Denies injuries from another. Nutritional screening: No deficits noted. Tuberculosis screening: No symptoms or risk factors identified. Assessment: 00:16 General: See Triage Assessment. Neuro: Level of Consciousness is awake, alert, Oriented kj2 to person, place, situation. Cardiovascular: Patient's skin is warm and dry. 01:29 Reassessment: Patient appears in no apparent distress at this time. Patient and/or kj2 family updated on plan of care and expected duration. Pain level reassessed. Patient is alert, oriented x 3, equal unlabored respirations, skin warm/dry/pink. patient refuse straight cath. 02:20 Reassessment: Patient appears in no apparent distress at this time. Patient and/or kj2 family updated on plan of care and expected duration. Pain level reassessed. Patient is alert, oriented x 3, equal unlabored respirations, skin warm/dry/pink. 03:20 Reassessment: Patient appears in no apparent distress at this time. No changes from lg3 previously documented assessment. Patient and/or family updated on plan of care and expected duration. Pain level reassessed. Patient is alert, oriented x 3, equal unlabored respirations, skin warm/dry/pink. 03:20 Cardiovascular: Rhythm is. lg3 Vital Signs: 08/19 23:43 BP 154 / 62; Pulse 66; Resp 18; Temp 97.9; Pulse Ox 97% on R/A; kj2 08/20 00:00 BP 158 / 61; Pulse 66; Resp 18; Temp 98; Pulse Ox 96% on R/A; kj2 02:18 BP 152 / 65; Pulse 69; Resp 18; Pulse Ox 100% on R/A; kj2 03:20 BP 147 / 66; Pulse 71; Resp 17 S; Temp 97.5(O); Pulse Ox 100% on R/A; lg3 ED Course: 08/19 23:43 Patient arrived in ED. lg3 23:43 Delfina Mckeon MD is Attending Physician. sp3 23:43 Maintain EMS IV. Dressing intact. Site clean \T\ dry. Gauge \T\ site: 22g left AC. Flushed kj 2 with 10 mL NS. 23:43 Patient has correct armband on for positive identification. Bed in low position. Call kj2 light in reach. Side rails up X2. Provided Education on: call light. 23:43 Arm band placed on Patient placed in an exam room. EKG completed in triage. Results kj2 shown to MD. 23:51 Delores Hedrick, RN is Primary Nurse. kj2 08/20 00:14 Triage completed. kj2 00:19 EKG done, by ED staff. vk 00:23 Chest Single View XRAY In Process Unspecified. EDMS 00:24 CT Head Brain wo Cont In Process Unspecified. EDMS 01:40 Ptt, Activated Sent. lg3 02:20 Urinalysis w/ reflexes Sent. kj2 02:29 No provider procedures requiring assistance completed. kj2 02:33 Assisted with bedpan. kj2 03:20 IV discontinued, intact, bleeding controlled, No redness/swelling at site. Pressure lg3 dressing applied. Administered Medications: 03:19 Drug: Rocephin IV 1 grams IV at bolus once; Given slow IV push per pharmacy lg3 instructions Route: IV; Rate: bolus; Site: left antecubital; 03:19 Follow up: Response: No adverse reaction; IV Status: Completed infusion; IV Intake: [id number] Medication: 08/19 23:43 VIS not applicable for this client. kj2 Point of Care Testing: Blood Glucose: 08/20 02:28 Blood Glucose: 164 mg/dL; kj2 Ranges: Intake: 03:19 IV: 10ml; Total: 10ml. lg3 Outcome: 02:50 Discharge ordered by . sp3 03:20 Discharged to long term. 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 medication usage, Demonstrated understanding of instructions, follow-up care, medications, Prescriptions given X 1, 03:21 Patient left the ED. lg3 Signatures: Dispatcher [employer] Luz Cruz RN RN lg3 Delfina Mckeon MD MD sp3 Mary Valdovinos Krystal, ACE RN kj2
[2024-08-20] MEDS ORDERED: CEFTRIAXONE 1000 MG/VIAL ONE (03:16)
--- NOTE | 2024-08-20 06:09 | RAD REPORT ---
TIME OF STUDY: 08/19/2024 11:44 PM CDT REASON FOR EXAM: syncope COMPARISON: None. FINDINGS: AP view of the chest was obtained, chest 1 view. Lungs: Normal lung volume. No mass, or consolidation. Normal pulmonary vascularity.. Emphysematous changes are noted. Pleura: No pneumothorax. There is no pleural effusion. Heart and Mediastinum: Normal cardiomediastinal silhouette and great vessels.. Bones: No acute bony abnormality.. Rousseau screws are noted within the right humeral head. Degenerat altaf changes are noted in the bilateral shoulders. IMPRESSION: 1. No acute cardiopulmonary process. Electronically signed by: Antoni Tam MD 08/20/2024 12:55 AM CDT RP Due to temporary technical issues with the PACS/Huddle reporting system, reports are being nasra d by the in-house radiologist without review as a courtesy to ensure prompt reporting the interpreting radiologist is fully responsible for the content of the report. Transcribed Date/Time: 08/20/2024 6:09 AM
--- NOTE | 2024-08-20 12:55 | EKG ---
Test Date: 2024-08-19 Test Time: 23:52:16 Adjunct Philosophy Faculty: DESTINY MEASUREMENT RESULTS: Intervals: Rate: 57 NV: 238 QRSD: 80 QT: 438 QTc: 426 Rule: P: 76 NV: 238 QRS: 42 T: 86 INTERPRETIVE STATEMENTS: Sinus bradycardia with 1st degree AV block Cannot rule out Anterior infarct, age undetermined Abnormal ECG Compared to ECG 01/10/2024 17:59:30 Sinus rhythm no longer present Myocardial infarct finding still present Electronically Signed On 08-20-24 12:54:05 CDT by Bradley Douglass
[2024-08-20 17:20] VITALS: O2SAT 100
[2024-08-20 17:22] VITALS: BP 147/66; TEMP 97.5
== END 2024-08-20 03:21 | disposition home or self-care (01) ==
LOC: ER 23:37
DX: N39.0 Urinary tract infection, site not specified (principal); R41.82 Altered mental status, unspecified; I10 Essential (primary) hypertension; F03.90 Unspecified dementia, unspecified severity, without behavioral disturbance, psychotic disturbance, mood disturbance, and anxiety; Z88.0 Allergy status to penicillin
CPT/HCPCS: 93005; 87088; 85025; 81001; 87086; 80048; 36415; 83735; 85610; 80076; 85730; 84484; 70450; 71045; 96374; 99284; J0696

== ENCOUNTER 2024-11-10 22:34 | Emergency (ER) | payer OTHER ==
[2024-11-10] MEDS ORDERED: INSULIN REGULAR (HUMAN) 100 UNIT/ML ONE (23:07)
[2024-11-10] MEDS ORDERED: NA CHLORIDE 0.9% 500 ML ONE (23:13)
[2024-11-10 23:50] LABS: Absolute Basophils 0.1 K/uL (0-0.5); Absolute Eosinophils 0.1 K/uL (0-0.5); Absolute Lymphocytes (CBC) 2.2 K/uL (0.7-4.9); Absolute Monocytes 0.9 K/uL (0.1-1.3); Absolute Neutrophil 5.8 K/uL (1.8-8.0); Basophils % 1.1 % (0-1.3); Eosinophils % 1.4 % (0-4.4); Hematocrit 33.9 % (36.0-45.0); Hemoglobin 11.7 g/dL (12.0-15.0); Lymphocytes % 24.6 % (15.3-44.8); MCHC 34.5 g/dL (32.0-36.0); MCV 92.9 fL (80-100); MPV 8.7 fL (7.6-11.3); Monocytes % 9.4 % (3.3-12.3); Neutrophils % 63.5 % (41.7-73.7); Nucleated Red Blood Cells % 0.1 % (0-0); Platelets 268 thou/uL (152-406); RBC Red Blood Cell Count 3.65 M/uL (3.86-4.86); Red Cell Distribution Width 13.6 % (12.1-15.2); Specific Gravity 1.011 (1.005-1.030); Sqamous Epithelial <5 /HPF (None Seen); Urine Bacteria <20 /HPF (<20); Urine Bilirubin NEGATIVE (Negative); Urine Blood Negative (Negative); Urine Clarity Clear (Clear); Urine Color Colorless (Yellow); Urine Culture Reflex Order NOT NEEDED; Urine Glucose 4+ (Over) (Negative); Urine Ketones NEGATIVE (Negative); Urine Microscopic Reflex YN ORDER UMIC; Urine Nitrite NEGATIVE (Negative); Urine Protein NEGATIVE (Negative); Urine RBC <5 /HPF (None Seen); Urine Urobilinogen Normal (Normal); Urine WBC <5 /HPF (<5)
[2024-11-11] MEDS ORDERED: INSULIN REGULAR (HUMAN) 100 UNIT/ML ONE (00:47)
--- NOTE | 2024-11-11 03:24 | EDPHYS ---
Physician Documentation [facility] Name: Lorena Canas Age: 84 yrs Sex: Female : 1940 Arrival Date: 11/10/2024 Time: 22:34 Bed 7 Private MD: ED Physician Mart Jensen HPI: 11/10 22:36 This 84 yrs old Female presents to ER via Unassigned with complaints of high glucose. rn 22:36 The patient or guardian reports hyperglycemia, that was potentially precipitated by rn forgetting medications. Onset: The symptoms/episode began/occurred at an unknown time. Current symptoms: In the emergency department the patient's symptoms are unchanged from the initial presentation. It is unknown whether or not the patient has had similar symptoms in the past. Patient is in assisted living facility, daughter is out of town, she is supposed to be taking her own medication but patient is not aware that she requires diabetic medication. Per report she is supposed to be taking Lantus. Glucose 470 per EMS. Patient has no complaints. No increased urination or thirst. No pain. No abdominal pain or vomiting. Patient also with dementia.. Historical: - Allergies: 22:53 Enalapril; jj7 22:53 PENICILLINS; jj7 - PMHx: 22:53 Dementia; diabetes mellitus; Hypertensive disorder; osteomyelitis; urinary tract jj7 infection; - PSHx: 22:53 GALLBLADDER; hysterectomy; jj7 - Immunization history:: Adult Immunizations up to date. - Infectious Disease History:: Denies. - Family history:: not pertinent. - Social history:: Smoking status: Patient denies any tobacco usage or history of. Patient/guardian denies using alcohol, street drugs, IV drugs. - Hospitalizations: : No recent hospitalization is reported. ROS: 22:36 Constitutional: Negative for fever, chills, and weight loss, Eyes: Negative for injury, rn pain, redness, and discharge, Neck: Negative for injury, pain, and swelling, Cardiovascular: Negative for chest pain, palpitations, and edema, Respiratory: Negative for shortness of breath, cough, wheezing, and pleuritic chest pain, Abdomen/GI: Negative for abdominal pain, nausea, vomiting, diarrhea, and constipation, : Negative for injury, bleeding, discharge, and swelling, MS/Extremity: Negative for injury and deformity, Skin: Negative for injury, rash, and discoloration, Neuro: Negative for headache, weakness, numbness, tingling, and seizure, Exam: 22:36 Constitutional: This is a well developed, well nourished patient who is awake, alert, rn and in no acute distress. Head/Face: Normocephalic, atraumatic. ENT: Dry mucous membranes Cardiovascular: Regular rate and rhythm . No pulse deficits. Respiratory: No increased work of breathing, no retractions or nasal flaring. Abdomen/GI: Soft, non-tender, MS/ Extremity: Pulses equal, no cyanosis. Neurovascular intact. Full, normal range of motion. Equal circumference. Neuro: Awake and alert, GCS 15 Vital Signs: 22:40 BP 185 / 72; Pulse 78; Resp 16; Temp 98; Pulse Ox 99% ; Weight 63.5 kg; Height 5 ft. 8 j7 in. ; Pain 0/10; 23:30 BP 166 / 71; Pulse 75; Resp 14; Pulse Ox 98% ; [facility] 11/11 00:30 BP 140 / 63; Pulse 73; Resp 14; Pulse Ox 99% ; 7 01:30 BP 140 / 60; Pulse 74; Resp 17; Pulse Ox 98% ; Pain 0/10; 7 02:00 BP 139 / 69; Pulse 73; Resp 18; Pulse Ox 98% on R/A; ay 03:00 BP 115 / 71; Pulse 94; Resp 18; Pulse Ox 99% on R/A; ay 11/10 22:40 Body Mass Index 21.29 (63.50 kg, 172.72 cm) [facility] 11/10 22:40 Pain Scale: Adult j7 01:30 Pain Scale: Adult jj7 MDM: 11/10 22:34 Medical Screening Exam initiated rn 11/11 03:21 Differential diagnosis: hyperglycemia. 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 Counseling: I had a detailed discussion with the patient and/or guardian regarding the historical points, exam findings, and any diagnostic results supporting the discharge/admit diagnosis, lab results, the need for outpatient follow up, to return to the emergency department if symptoms worsen or persist or if there are any questions or concerns that arise at home. Special discussion: I discussed with the patient/guardian in detail that at this point there is no indication for admission to the hospital. It is understood, however, that if the symptoms persist or worsen the patient needs to return immediately for re-evaluation. ED course: Glucose down to 212, patient still asymptomatic. Will not lower it further as she is likely going to sleep and not eating. Will discharge home and hyperglycemia is likely secondary to not taking her medication as prescribed due to dementia.. 11/10 22:35 Order name: CBC with Diff; Complete Time: 00:30 rn 11/10 22:35 Order name: Basic Metabolic Panel; Complete Time: 00:30 rn 11/10 22:35 Order name: Urinalysis w/ reflexes; Complete Time: 00:30 rn 11/10 23:00 Order name: Glucose, Ancillary Testing; Complete Time: 23:45 EDMS 11/11 00:21 Order name: Glucose, Ancillary Testing; Complete Time: 00:30 EDMS 11/11 02:06 Order name: Glucose, Ancillary Testing; Complete Time: 02:35 EDMS 11/11 03:33 Order name: Glucose, Ancillary Testing EDTN 11/10 22:35 Order name: IV Start; Complete Time: 22:59 rn 11/10 22:35 Order name: Cardiac monitoring; Complete Time: 22:59 rn 11/10 22:35 Order name: Glucose Level; Complete Time: 22:58 rn Administered Medications: 11/10 23:14 Drug: NS 0.9% IV 500 ml 500 ml IV at 1 bolus once; to be given as a bolus over 30 jj7 minutes Volume: 500 ml; Route: IV; Rate: 1 bolus; Site: right antecubital; 11/11 03:55 Follow up: IV Status: Completed infusion; IV Intake: 500ml jian 11/10 23:29 Drug: Insulin Regular Human Sub-Q 10 units Sub-Q once {Co-Signature: jj7 (jian Abrams RN).} Route: Sub-Q; Site: right lower abdomen; 11/11 03:55 Follow up: Response: No adverse reaction jian 00:53 Drug: Insulin Regular Human Sub-Q 10 units Sub-Q once {Co-Signature: jj7 (jian Abrams RN).} Route: Sub-Q; Site: left lower abdomen; 03:55 Follow up: Response: No adverse reaction ay Point of Care Testing: Blood Glucose: 11/10 22:40 Blood Glucose: High (>450 mg/dL); jj7 11/11 01:54 Blood Glucose: 374 mg/dL; jj7 Ranges: Critical Glucose Levels:Adult <50 mg/dl or >400 mg/dl <40 mg/dl or >180 mg/dl Disposition Summary: 11/11/24 03:23 Discharge Ordered Notes: Location: Home rn Problem: new rn Symptoms: have improved rn Condition: Stable rn Diagnosis - Hyperglycemia, unspecified rn Followup: rn - With: Private Physician - When: As needed - Reason: Recheck today's complaints, Re-evaluation by your physician Discharge Instructions: - Discharge Summary Sheet rn - Hyperglycemia rn - Blood Glucose Monitoring, Adult rn Forms: - Medication Reconciliation Form rn - Antibiotic interventional radiology rn - Prescription Opioid Use rn - Patient Portal Instructions rn - Leadership Thank You Letter rn Signatures: Dispatcher [employer] EDMart Chamorro MD MD rn Johnson, Juwairiyah RN RN junejHortencia Freeman RN RN ay Johnson, Juwairiyah RN jjBayron
--- NOTE | 2024-11-11 03:24 | ER ---
Nurse's Notes 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 EMS CHECKED BLOOD SUGAR AND IT WAS 473. PT IS NOT HAVING ANY SYMPTOMS. Coronavirus screen: At this time, the client does not indicate any symptoms associated with coronavirus-19. Ebola Screen: No symptoms or risks identified at this time. Initial Sepsis Screen: Does the patient meet any 2 criteria? No. Patient's initial sepsis screen is negative. Does the patient have a suspected source of infection? No. Patient's initial sepsis screen is negative. Risk Assessment: Do you want to hurt yourself or someone else? Patient reports no desire to harm self or others. Onset of symptoms was November 10, 2024. Care prior to arrival: Medication(s) given: Glucose check: 471. 22:40 Method Of Arrival: EMS: [facility] 7 22:40 Acuity: RHONDA 3 jj7 Triage Assessment: 22:40 General: Appears in no apparent distress. comfortable, Behavior is calm, cooperative, jj7 appropriate for age. Pain: Denies pain. Neuro: Level of Consciousness is awake, alert, obeys commands, confused, Oriented to person, place, situation. Cardiovascular: No deficits noted. Respiratory: No deficits noted. GI: No deficits noted. : No deficits noted. Derm: No deficits noted. Musculoskeletal: No deficits noted. Historical: - Allergies: 22:53 Enalapril; jj7 22:53 PENICILLINS; jj7 - PMHx: 22:53 Dementia; diabetes mellitus; Hypertensive disorder; osteomyelitis; urinary tract jj7 infection; - PSHx: 22:53 GALLBLADDER; hysterectomy; jj7 - Immunization history:: Adult Immunizations up to date. - Infectious Disease History:: Denies. - Family history:: not pertinent. - Social history:: Smoking status: Patient denies any tobacco usage or history of. Patient/guardian denies using alcohol, street drugs, IV drugs. - Hospitalizations: : No recent hospitalization is reported. Screenin:40 [facility] ED Fall Risk Assessment (Adult) History of falling in the last 3 months, jj7 including since admission No falls in past 3 months (0 pts) Confusion or Disorientation Yes (5 pts) Intoxicated or Sedated No (0 pts) Impaired Gait No (0 pts) Mobility Assist Device Used No (0 pt) Altered Elimination No (0 pt) Score/Fall Risk Level 3 or more points = High Risk Oriented to surroundings, Maintained a safe environment, Educated pt \T\ family on fall prevention, incl call for assistance when getting out of bed, Assessed \T\ reinforced patient's understanding of fall precautions. Abuse screen: Denies threats or abuse. Nutritional screening: No deficits noted. Tuberculosis screening: No symptoms or risk factors identified. Assessment: 22:40 Reassessment: SEE TRIAGE ASSESSMENT. jj7 11/11 00:00 Reassessment: Patient is alert, oriented x 3, equal unlabored respirations, skin jj7 warm/dry/pink. 01:00 Reassessment: No changes from previously documented assessment. Patient is alert, jj7 oriented x 3, equal unlabored respirations, skin warm/dry/pink. 02:00 Reassessment: No changes from previously documented assessment. jj7 03:41 Reassessment: [facility] CALLED AND INFORMED PT IS DISCHARGED. [facility] STAFF STATES THEY WILL ARRANGE TRANSFER WITH [facility]. 03:57 General: Pt waiting to be picked up to half-way. ay 04:33 Reassessment: Patient is alert, oriented x 3, equal unlabored respirations, skin jj7 warm/dry/pink. [facility] STAFF [facility] CALLED FOR AN UPDATE ON TRANSPORTATION. [facility]ANDON STATES AMBULANCE TOLD HER 1 HR ETA \T\[id number]. AWAITING EMS TRANSPORT. 05:16 Reassessment: No changes from previously documented assessment. Patient is alert, jj7 oriented x 3, equal unlabored respirations, skin warm/dry/pink. [facility] CONTACTED AGAIN TO GET UPDATE ON TRANSPORT. STATES SHE WILL CALL EMS AND GET UPDATE AND CALL US WITH UPDATE. 05:29 Reassessment: [facility] AT BEDSIDE TP TRANSPORT PT. jj7 Vital Signs: 11/10 22:40 BP 185 / 72; Pulse 78; Resp 16; Temp 98; Pulse Ox 99% ; Weight 63.5 kg; Height 5 ft. 8 jj7 in. ; Pain 0/10; 23:30 BP 166 / 71; Pulse 75; Resp 14; Pulse Ox 98% ; jj7 11/11 00:30 BP 140 / 63; Pulse 73; Resp 14; Pulse Ox 99% ; jj7 01:30 BP 140 / 60; Pulse 74; Resp 17; Pulse Ox 98% ; Pain 0/10; jj7 02:00 BP 139 / 69; Pulse 73; Resp 18; Pulse Ox 98% on R/A; ay 03:00 BP 115 / 71; Pulse 94; Resp 18; Pulse Ox 99% on R/A; ay 11/10 22:40 Body Mass Index 21.29 (63.50 kg, 172.72 cm) j 11/10 22:40 Pain Scale: Adult jj7 01:30 Pain Scale: Adult jj7 ED Course: 11/10 22:34 Patient arrived in ED. rn 22:34 Mart Jensen MD is Attending Physician. rn 22:40 Arm band placed on right wrist. 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 22:40 Patient has correct armband on for positive identification. Bed in low position. Call jj7 light in reach. Side rails up X2. Provided Education on: USE OF CALL ZULETA. Warm blanket given. 22:47 Rodrigue Abrams, RN is Primary Nurse. j7 22:53 Triage completed. jj7 23:30 Urinalysis w/ reflexes Sent. ay 23:30 Basic Metabolic Panel Sent. ay 23:30 CBC with Diff Sent. ay 11/11 03:39 No provider procedures requiring assistance completed. IV discontinued, intact, ay bleeding controlled, No redness/swelling at site. Pressure dressing applied. Administered Medications: 11/10 23:14 Drug: NS 0.9% IV 500 ml 500 ml IV at 1 bolus once; to be given as a bolus over 30 jj7 minutes Volume: 500 ml; Route: IV; Rate: 1 bolus; Site: right antecubital; 11/11 03:55 Follow up: IV Status: Completed infusion; IV Intake: 500ml ay 11/10 23:29 Drug: Insulin Regular Human Sub-Q 10 units Sub-Q once {Co-Signature: jj7 (jian Abrams RN).} Route: Sub-Q; Site: right lower abdomen; 11/11 03:55 Follow up: Response: No adverse reaction ay 00:53 Drug: Insulin Regular Human Sub-Q 10 units Sub-Q once {Co-Signature: jj7 (jian Abrams RN).} Route: Sub-Q; Site: left lower abdomen; 03:55 Follow up: Response: No adverse reaction ay Medication: 11/10 22:40 VIS not applicable for this client. jj7 Point of Care Testing: Blood Glucose: 22:40 Blood Glucose: High (>450 mg/dL); jj7 11/11 01:54 Blood Glucose: 374 mg/dL; jj7 Ranges: Intake: 03:55 IV: 500ml; Total: 500ml. ay Outcome: 03:23 Discharge ordered by . rn 03:39 Discharged to half-way. ay 03:39 Condition: stable 03:39 Discharge instructions given to patient, 05:35 Patient left the ED. jj7 Signatures: Mart Jensen MD MD rn Johnson, Juwairiyah RN RN jjHortencia Freeman RN RN ay Johnson, Juwairiyah RN jjBayron Corrections: (The following items were deleted from the chart) 11/10 22:58 22:40 Neuro: No deficits noted. 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 HOME APPLIANCE WASHING MACHINE MECHANIC CALLED EMS BECAUSE SHE KEPT FALLING TO SLEEP. EMS CHECKED BLOOD SUGAR AND IT WAS 473. PT IS NOT HAVING ANY SYMPTOMS jj7
[2024-11-11 06:00] VITALS: TEMP 98
[2024-11-11 06:06] VITALS: BP 115/71; O2SAT 99
== END 2024-11-11 05:35 | disposition home or self-care (01) ==
LOC: ER 22:34
DX: E11.65 Type 2 diabetes mellitus with hyperglycemia (principal); I10 Essential (primary) hypertension; F03.90 Unspecified dementia, unspecified severity, without behavioral disturbance, psychotic disturbance, mood disturbance, and anxiety; Z88.0 Allergy status to penicillin; Z88.8 Allergy status to other drugs, medicaments and biological substances
CPT/HCPCS: 96361; 85025; 81001; 80048; 36415; 82947 ×4; 96360; 96372; 99284; J7040

== ENCOUNTER 2025-04-12 08:53 | Emergency (ER) | payer OTHER ==
--- NOTE | 2025-04-12 11:53 | EDPHYS ---
Physician Documentation [facility] Name: Lorena Canas Age: 84 yrs Sex: Female : 1940 Arrival Date: 04/12/2025 Time: 08:53 Bed 13 Private MD: Dimitri Wiley HPI: 04/12 09:12 This 84 yrs old Female presents to ER via Unassigned with complaints of Skin dr5 Tear(s). 09:12 Onset: The symptoms/episode began/occurred yesterday. Patient is an 84-year-old female dr5 with history of hypertension, hyperlipidemia, arthritis coming in with skin tear to right upper forearm with mild pain to right elbow. Patient denies falling. Daughter at bedside states that they came in to check her this morning and had skin tear.. Historical: - Allergies: 09:23 Enalapril; dr5 09:23 PENICILLINS; dr5 09:23 Enalapril; hb 09:23 PENICILLINS; hb - Home Meds: 09:23 amlodipine 5 mg oral tablet daily [Active]; aspirin 81 mg Oral tablet daily [Active]; hb FeroSul 325 mg (65 mg iron) oral tablet daily [Active]; galantamine 16 mg oral Capsule, ER Pellets 24 hr every morning [Active]; glimepiride 4 mg Oral tablet every morning [Active]; Lantus U-100 Insulin 100 unit/mL Sub-Q solution 40 units daily [Active]; losartan 50 mg oral tablet daily [Active]; metformin 750 mg Oral tablet 2 times per day with meals [Active]; Pravachol Oral 20 mg nightly [Active]; quetiapine 50 mg oral tablet 3 times per day [Active]; Vitamin B-12 1,000 mcg Oral tablet, extended release daily [Active]; Vitamin C 500 mg Oral tablet daily [Active]; Vitamin D3 25 mcg (1,000 unit) oral tablet,chewable daily [Active]; - PMHx: 09:23 Dementia; diabetes mellitus; Hypertensive disorder; osteomyelitis; urinary tract dr5 infection; 09:23 Dementia; diabetes mellitus; Hypertensive disorder; osteomyelitis; urinary tract hb infection; - PSHx: 09:23 GALLBLADDER; hysterectomy; dr5 09:23 GALLBLADDER; hysterectomy; hb - Immunization history:: Adult Immunizations up to date. - Infectious Disease History:: Denies. - Social history:: Smoking status: Patient denies any tobacco usage or history of. ROS: 09:12 Constitutional: as per hpi dr5 Exam: 09:12 Constitutional: This is a well developed, well nourished patient who is awake, alert, dr5 and in no acute distress. Head/Face: Normocephalic, atraumatic. Eyes: Pupils equal round and reactive to light, extra-ocular motions intact. Lids and lashes normal. Conjunctiva and sclera are non-icteric and not injected. Cornea within normal limits. Periorbital areas with no swelling, redness, or edema. Neck: Trachea midline, no thyromegaly or masses palpated, and no cervical lymphadenopathy. Supple, full range of motion without nuchal rigidity, or vertebral point tenderness. No Meningismus. Chest/axilla: Normal chest wall appearance and motion. Nontender with no deformity. No lesions are appreciated. Cardiovascular: Regular rate and rhythm with a normal S1 and S2. Normal PMI, no JVD. No pulse deficits. Respiratory: Lungs have equal breath sounds bilaterally, clear to auscultation. No rales, rhonchi or wheezes noted. No increased work of breathing, no retractions or nasal flaring. Back: No spinal tenderness. No costovertebral tenderness. Full range of motion. MS/ Extremity: Pulses equal, no cyanosis. Neurovascular intact. Full, normal range of motion. Neuro: Awake and alert, GCS 15, oriented to person, place, time, and situation. Cranial nerves II-XII grossly intact. Motor strength 5/5 in all extremities. Sensory grossly intact. Cerebellar exam normal. Normal gait. 09:12 Skin: injury, Skin tear to right upper forearm. No bleeding. Contusion noted around skin tear., Vital Signs: 09:14 BP 148 / 68; Pulse 69; Resp 16; Temp 97.7; Pulse Ox 100% on R/A; Weight 70.31 kg; hb Height 5 ft. 7 in. ; Pain 2/10; 11:16 BP 149 / 50; Pulse 74; Resp 17 S; Pulse Ox 100% on R/A; kc6 09:14 Body Mass Index 24.28 (70.31 kg, 170.18 cm) hb 09:14 Pain Scale: Adult hb Procedures: 12:08 Splinting: Splint applied to right upper arm using sling, applied by nurse. Examined by dr5 me, post splint application: neurovascular intact, 2+ distal pulses palpable, brisk capillary refill noted, Patient tolerated well. Performed Wound Care. Steri-strips applied to approximate wound. Non-adherent dressing placed. Kerlex used to wrap wound.. MDM: 08:56 Medical Screening Exam initiated felipe 11:17 Awaiting: X-ray results. dr5 11:31 Awaiting: X-ray results. dr5 11:59 Differential diagnosis: abrasion, contusion, fracture, sprain, strain. Data reviewed: dr5 vital signs, nurses notes, radiologic studies. Independent interpretation of the following test(s) in the Emergency Department X-Ray: My interpretation is X-ray results not resulted by the time patient was discharged. Historians other than the Patient: Daughter/Son: Daughter. Care significantly affected by the following chronic conditions: Hypertension, diabetes, dementia, and urinary tract infections, osteomyelitis. Care significantly affected by the following Social Determinants of Health: Poor access to healthcare and/or lack of insurance, Poor access to transportation, Problems related to employment. Counseling: I had a detailed discussion with the patient and/or guardian regarding the historical points, exam findings, and any diagnostic results supporting the discharge/admit diagnosis, the presence of at least one elevated blood pressure reading (>120/80) during this emergency department visit, radiology results, the need for outpatient follow up, for definitive care, a family practitioner, a orthopedic surgeon, to return to the emergency department if symptoms worsen or persist or if there are any questions or concerns that arise at home. Awaiting: X-ray results. ED course: Patient's daughter is adamant on leaving due to long wait times for x-ray results. Wet read concerning for distal humerus fracture but could be skin tear. Will place patient in sling for comfort at this time. I printed out CD for patient and given to her. I personally did wound care on patient and use Steri-Strips, nonadherent dressing, and Kerlix to dress wound. Skin tear is well-approximated. Discussed with patient's daughter that when x-ray results are returned I will print them out and she can pick them up later today. Daughter is appreciative of plan and will return later for x-ray results. Recommended alternating Tylenol Motrin as needed for pain. Cephalexin prescribed to prevent infection. All questions answered. Recommended patient follow-up with orthopedics in the next couple days.. 04/12 09:11 Order name: Elbow Right 3 View XRAY; Complete Time: 15:59 dr5 04/12 08:57 Order name: Wound Care; Complete Time: 09:48 felipe 04/12 11:11 Order name: Sling; Complete Time: 11:42 dr5 Administered Medications: No medications were administered Disposition Summary: 04/12/25 11:53 Discharge Ordered Notes: Location: Home dr5 Condition: Stable dr5 Diagnosis - Pain in right elbow dr5 Followup: dr5 - With: Emergency Department - When: As needed - Reason: Worsening of condition Followup: dr5 - With: Private Physician - When: 1 - 2 days - Reason: Recheck today's complaints, Continuance of care, Re-evaluation by your physician Followup: dr5 - With: Caleb Oscar MD - When: 1 - 2 days - Reason: Recheck today's complaints, Continuance of care, Re-evaluation by your physician Discharge Instructions: - Discharge Summary Sheet dr5 - Elbow Contusion dr5 - How to Use a Sling, [id number] dr5 Forms: - Medication Reconciliation Form dr5 - Antibiotic Education dr5 - Patient Portal Instructions dr5 - Leadership Thank You Letter dr5 Prescriptions: - Cephalexin 500 mg Oral Capsule - take 1 capsule ORAL route every 12 hours for 10 days; 20 capsule; Refills: 0, dr5 Product Selection Permitted - Ibuprofen 600 mg Oral tablet - take 1 tablet ORAL route every 12 hours As needed take with food; 30 tablet; dr5 Refills: 0, Product Selection Permitted Addendum: 04/13/2025 19:21 Co-signature as Attending Physician, Dimitri Singleton MD I agree with the assessment and c hendrix plan of care. Signatures: Dispatcher [employer] Dimitri Dean MD MD cha Baxter, Heather, RN RN Abhijit Millard, PLATER HELPER-C PLATER HELPER-Cdr5
--- NOTE | 2025-04-12 11:53 | ER ---
Nurse's Notes [facility] Name: Lorena Canas Age: 84 yrs Sex: Female : 1940 Arrival Date: 04/12/2025 Time: 08:53 Bed 13 Private MD: Diagnosis: Pain in right elbow Presentation: 04/12 09:14 Chief complaint: Large right elbow pain and large skin tear right forearm upon waking hb today. Coronavirus screen: At this time, the client does not indicate any symptoms associated with coronavirus-19. Ebola Screen: No symptoms or risks identified at this time. Initial Sepsis Screen: Does the patient meet any 2 criteria? No. Patient's initial sepsis screen is negative. Does the patient have a suspected source of infection? No. Patient's initial sepsis screen is negative. Risk Assessment: Do you want to hurt yourself or someone else? Patient reports no desire to harm self or others. Onset of symptoms was April 12, 2025. 09:14 Method Of Arrival: Ambulatory hb 09:14 Acuity: RHONDA 4 hb Historical: - Allergies: 09:23 Enalapril; dr5 09:23 PENICILLINS; dr5 09:23 Enalapril; hb 09:23 PENICILLINS; hb - Home Meds: 09:23 amlodipine 5 mg oral tablet daily [Active]; aspirin 81 mg Oral tablet daily [Active]; hb FeroSul 325 mg (65 mg iron) oral tablet daily [Active]; galantamine 16 mg oral Capsule, ER Pellets 24 hr every morning [Active]; glimepiride 4 mg Oral tablet every morning [Active]; Lantus U-100 Insulin 100 unit/mL Sub-Q solution 40 units daily [Active]; losartan 50 mg oral tablet daily [Active]; metformin 750 mg Oral tablet 2 times per day with meals [Active]; Pravachol Oral 20 mg nightly [Active]; quetiapine 50 mg oral tablet 3 times per day [Active]; Vitamin B-12 1,000 mcg Oral tablet, extended release daily [Active]; Vitamin C 500 mg Oral tablet daily [Active]; Vitamin D3 25 mcg (1,000 unit) oral tablet,chewable daily [Active]; - PMHx: 09:23 Dementia; diabetes mellitus; Hypertensive disorder; osteomyelitis; urinary tract dr5 infection; 09:23 Dementia; diabetes mellitus; Hypertensive disorder; osteomyelitis; urinary tract hb infection; - PSHx: 09:23 GALLBLADDER; hysterectomy; dr5 09:23 GALLBLADDER; hysterectomy; hb - Immunization history:: Adult Immunizations up to date. - Infectious Disease History:: Denies. - Social history:: Smoking status: Patient denies any tobacco usage or history of. Screenin:00 [facility] ED Fall Risk Assessment (Adult) History of falling in the last 3 months, kc6 including since admission No falls in past 3 months (0 pts) Confusion or Disorientation No (0 pts) Intoxicated or Sedated No (0 pts) Impaired Gait No (0 pts) Mobility Assist Device Used No (0 pt) Altered Elimination No (0 pt) Score/Fall Risk Level 0 - 2 = Low Risk Oriented to surroundings. Abuse screen: Denies threats or abuse. Denies injuries from another. Nutritional screening: No deficits noted. Tuberculosis screening: No symptoms or risk factors identified. Assessment: 10:00 General: Appears in no apparent distress. comfortable, well groomed, well developed, kc6 Behavior is calm, cooperative, appropriate for age. Pain: Denies pain. Neuro: Level of Consciousness is awake, alert, obeys commands, Oriented to person, place, time, situation, Appropriate for age. Cardiovascular: Capillary refill < 3 seconds. Respiratory: Airway is patent Trachea midline Respiratory effort is even, unlabored, Respiratory pattern is regular, symmetrical. Derm: Skin is fragile, is thin, with poor turgor has skin tears on to the right FA Skin is dry, Skin is pink, warm \\T\\ dry. Skin temperature is warm. Musculoskeletal: No signs and/or symptoms reported regarding the musculoskeletal system. Circulation, motion, and sensation intact. Range of motion: intact in all extremities. 11:16 Reassessment: Patient appears in no apparent distress at this time. No changes from kc6 previously documented assessment. Patient and/or family updated on plan of care and expected duration. Pain level reassessed. 12:01 Reassessment: Patient appears in no apparent distress at this time. No changes from kc6 previously documented assessment. Patient and/or family updated on plan of care and expected duration. Pain level reassessed. Vital Signs: 09:14 BP 148 / 68; Pulse 69; Resp 16; Temp 97.7; Pulse Ox 100% on R/A; Weight 70.31 kg; hb Height 5 ft. 7 in. ; Pain 2/10; 11:16 BP 149 / 50; Pulse 74; Resp 17 S; Pulse Ox 100% on R/A; kc6 09:14 Body Mass Index 24.28 (70.31 kg, 170.18 cm) hb 09:14 Pain Scale: Adult hb ED Course: 08:56 Patient arrived in ED. im 08:56 Dimitri Singleton MD is Attending Physician. felipe 09:05 Abhijit Escalante FNP-C [facility]. dr5 09:12 Hyun Armendariz, RN is Primary Nurse. kc6 09:22 Triage completed. hb 09:59 Patient has correct armband on for positive identification. Bed in low position. Call kc6 light in reach. Side rails up X 1. Adult w/ patient. Pulse ox on. NIBP on. Door closed. Noise minimized. Lights dimmed. Warm blanket given. Pillow given. Verbal reassurance given. 09:59 Patient maintains SpO2 saturation greater than 95% on room air. Dressings: Kerlix kc6 non-adherent dressing x 1 right arm Steri strips 1/2 " X 3; right arm. Wound care: to skin tear located on right arm Patient tolerated well. 10:00 Arm band placed on. kc6 10:22 Elbow Right 3 View XRAY In Process Unspecified. EDMS 11:43 Clavicle/Shoulder strap applied on right clavicle/shoulder. kc6 11:55 Caleb Oscar MD is Referral Physician. dr5 12:01 No provider procedures requiring assistance completed. Patient did not have IV access kc6 during this emergency room visit. Administered Medications: No medications were administered Medication: 12:01 VIS not applicable for this client. kc6 Outcome: 11:53 Discharge ordered by . dr5 12:01 Discharged to home ambulatory, with family, kc6 12:01 Condition: good 12:01 Discharge instructions given to patient, family, Instructed on discharge instructions, follow up and referral plans. medication usage, wound care, Demonstrated understanding of instructions, follow-up care, medications, wound care, Prescriptions given X 2, 12:01 Patient left the ED. kc6 Signatures: Dispatcher [employer] EDIN Dimitri Singleton MD MD cha Baxter, Heather, RN RN Hyun Armendariz RN RN kc6 ChairezMacie barry, Abhijit, MOVIE PROJECTIONIST-C MOVIE PROJECTIONIST-Cdr5
[2025-04-12 12:06] VITALS: TEMP 97.7; O2SAT 100
[2025-04-12 12:08] VITALS: BP 149/50
--- NOTE | 2025-04-12 14:28 | RAD REPORT ---
EXAMINATION: XR Elbow Right 3 View CLINICAL INDICATION: Female, 84 years old. Pain;Swelling RIGHT TECHNIQUE: 3 view radiographs of the right elbow were obtained. COMPARISON: No prior exam. FINDINGS: No evidence of fracture or dislocation. Normal alignment. No joint effusion. Chronic appear ing irregularity along the medial and lateral condyles, suggesting sequelae of enthesopathy along the common extensor and flexor origins. No suspicious focal bone lesion. Soft tissues are unremarkabl e. IMPRESSION: No acute osseous abnormalities. Chronic findings as above.
== END 2025-04-12 12:01 | disposition home or self-care (01) ==
LOC: ER 08:53
DX: M25.521 Pain in right elbow (principal)
CPT/HCPCS: 99284

== ENCOUNTER 2025-08-08 10:20 | Emergency (ER) | payer OTHER ==
--- NOTE | 2025-08-08 11:14 | RAD REPORT ---
EXAM: CT brain without contrast HISTORY: TRAUMA COMPARISON: 08/20/2024 TECHNIQUE: Multiple contiguous axial images were obtained and a CT of the brain without contrast. Sag ittal and coronal reformats were performed. One or more of the following dose reduction techniques were used: Automated exposure control, adjust ment of the mA and/or kV according to patient size, and/or iterative reconstruction. FINDINGS: No evidence of hydrocephalus, intracranial hemorrhage, or extra-axial fluid collection. Moderate brain atrophy with moderate periventricular and deep white matter chronic microvascular isc hemic changes present. 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 No evidence of midline shift or areas of brain edema. The calvarium is intact. The visualized paranasal sinuses and mastoid air cells are essentially clear . Small right frontal scalp hematoma measuring 7 mm EXAM: CT of the cervical spine without contrast HISTORY: Neck pain, injury TRAUMA TECHNIQUE: Multiple contiguous axial images were obtained in a CT of the cervical spine without contr ast. Sagittal and coronal reformats were performed. FINDINGS: The vertebral bodies demonstrate normal height and alignment. No evidence of acute fracture or subluxation.. Multilevel prominent disc/osteophyte complexes are present mid and lower cervical spine. No prevertebral soft tissue swelling is seen. The posterior facets are well aligned. Normal alignment of the skull base with the cervical spine is seen. The lung apices are unremarkable. COMBINED IMPRESSION: No evidence of acute intracranial abnormality. No evidence of acute osseous abnormality of the cervical spine.
--- NOTE | 2025-08-08 11:14 | RAD REPORT ---
EXAMINATION: CT MAXILLOFACIAL WITHOUT CONTRAST CLINICAL INDICATION: TRAUMA TECHNIQUE: Axial images were obtained through the facial bones and orbits without intravenous contras t. Sagittal and coronal reconstructions were created from the data. One or more of the following dose reduction techniques were used: Automated exposure control, adjustment of the mA and/or kV accor ding to patient size, and/or iterative reconstruction. Unless otherwise specified, incidental findings do not require dedicated imaging follow-up. COMPARISON: No prior exam. FINDINGS: SOFT TISSUE: Small right frontal scalp hematoma. BONES: No evidence of fracture, dislocation, or aggressive osseous lesions. No lesion of the visuali zed skull base or calvarium. ORBITS: The globes are intact. No intraorbital hemorrhage or mass. SINUSES: The visualized paranasal sinuses and mastoid air cells are essentially clear. IMPRESSION: No acute facial bone injury.
[2025-08-08] MEDS ORDERED: DERMABOND SKIN ADHESIVE TOP ONE (11:26)
--- NOTE | 2025-08-08 11:41 | EDPHYS ---
Physician Documentation [facility] Name: Lorena Canas Age: 85 yrs Sex: Female : 1940 Arrival Date: 08/08/2025 Time: 10:20 Bed 8 Private MD: ED Physician Mart Jensen HPI: 08/08 10:26 This 85 yrs old Female presents to ER via EMS with complaints of Fall Injury. sb4 10:26 Patient sustained a mechanical fall while getting out of a chair this morning. She fell sb4 forward and hit her face. No loss of consciousness, not on blood thinners. Was able to get herself back into the chair. Has a history of dementia and is currently her baseline. Historical: - Allergies: 10:22 Enalapril; cough; aa5 10:22 PENICILLINS; Rash; aa5 - Home Meds: 10:34 amlodipine 5 mg tablet daily [Active]; aspirin 81 mg Oral tablet daily [Active]; aa5 divalproex 250 mg oral Tablet, Extended Release 24 hr daily [Active]; ferrous sulfate 325 mg (65 mg iron) Oral tablet daily [Active]; furosemide 40 mg Oral tablet daily [Active]; galantamine 16 mg Oral Capsule every morning [Active]; Lantus U-100 Insulin 100 unit/mL Sub-Q solution 35 units daily [Active]; losartan 50 mg Oral tablet daily [Active]; metformin 500 mg oral tablet 1.5 tabs 2 times per day [Active]; potassium chloride 10 mEq oral tablet, extended release daily [Active]; pravastatin 20 mg oral tablet daily [Active]; - PMHx: 10:22 Dementia; diabetes mellitus; Hypertensive disorder; osteomyelitis; urinary tract aa5 infection; Depressive disorder; Cellulitis of left great toe; PVD; Alzheimer's disease; Spondylosis; - PSHx: 10:22 GALLBLADDER; hysterectomy; aa5 - Immunization history:: Adult Immunizations unknown. - Infectious Disease History:: Denies. - Social history:: Smoking status: Patient denies any tobacco usage or history of. ROS: 10:30 Constitutional: Negative for fever, chills, and weight loss, sb4 10:30 Neuro: Positive for headache, 10:30 All other systems are negative, Exam: 10:31 Eyes: Extra-ocular motions intact. Periorbital areas with no swelling, redness, or sb4 edema. ENT: Mucous membranes moist. Respiratory: No increased work of breathing, no retractions or nasal flaring. 10:31 Constitutional: The patient appears in no acute distress, alert, awake, 10:31 Head/face: Noted is hematoma, that is moderate, of the right side of forehead, a laceration(s), that is superficial, 2 cm(s), of the right side of forehead, 11:38 Neuro: Orientation: no acute changes, per EMS, Motor: is normal, moves all fours, sb4 Sensation: is normal, Vital Signs: 10:22 BP 122 / 57; Pulse 74; Resp 18 S; Temp 97.8(TE); Pulse Ox 100% on R/A; aa5 11:22 BP 147 / 50; Pulse 63; Resp 16 S; Pulse Ox 100% on R/A; aa5 Ching Coma Score: 10:22 Eye Response: spontaneous(4). Motor Response: obeys commands(6). Verbal Response: aa5 confused(4). Total: 14. 11:22 Eye Response: spontaneous(4). Motor Response: obeys commands(6). Verbal Response: aa5 confused(4). Total: 14. Trauma Score (Adult): 10:22 Eye Response: spontaneous(1); Verbal Response: confused(1); Motor Response: obeys aa5 commands(2); Systolic BP: > 89 mm Hg(4); Respiratory Rate: 10 to 29 per min(4); Ching Score: 14; Trauma Score: 12 11:22 Eye Response: spontaneous(1); Verbal Response: confused(1); Motor Response: obeys aa5 commands(2); Systolic BP: > 89 mm Hg(4); Respiratory Rate: 10 to 29 per min(4); Ching Score: 14; Trauma Score: 12 Laceration: 11:38 Wound Repair of 2cm ( 0.8in ) subcutaneous laceration to right side of forehead. Distal sb4 neuro/vascular/tendon intact. Wound prep: Simple cleansing with hibiclenz by nurse, Wound irrigation with saline by me. Skin closed with thin layer Adhesive skin closure using Dermabond. Patient tolerated well. MDM: 10:24 Medical Screening Exam initiated sb4 11:38 Differential diagnosis: abrasion, closed head injury, contusion, fracture, laceration, sb4 sprain, strain. Data reviewed: vital signs, nurses notes, EMS record, group home records, and as a result, I will discharge patient. Test considered but Not performed: Labs: not indicated, mechanical fall. Counseling: I had a detailed discussion with the patient and/or guardian regarding the historical points, exam findings, and any diagnostic results supporting the discharge/admit diagnosis, radiology results, the need for outpatient follow up, for definitive care, to return to the emergency department if symptoms worsen or persist or if there are any questions or concerns that arise at home. 08/08 10:25 Order name: Head C Spine MPR Wo Con CT; Complete Time: 11:30 sb4 08/08 10:25 Order name: Facial Bones W/O Con CT; Complete Time: 11:30 sb4 08/08 10:26 Order name: Wound Care; Complete Time: 10:45 sb4 08/08 11:31 Order name: Dermabond; Complete Time: 11:37 sb4 Administered Medications: No medications were administered Disposition: 16:08 Co-signature as Attending Physician, Mart Jensen MD I reviewed the patient's care rn provided by the Advanced Practice Provider and agree with the diagnosis and treatment plan. Disposition Summary: 08/08/25 11:40 Discharge Ordered Notes: Location: Home sb4 Problem: new sb4 Symptoms: have improved sb4 Condition: Stable sb4 Diagnosis - Fall on same level, unspecified sb4 - Forehead hematoma and laceration sb4 Followup: sb4 - With: Emergency Department - When: As needed - Reason: Trouble breathing, Worsening of condition Discharge Instructions: - Discharge Summary Sheet sb4 - Hematoma, [id number] sb4 - Nonsutured Laceration Care sb4 - Fall Prevention in the Home, Adult, [id number] sb4 - Head Injury, Adult, [id number] sb4 Forms: - Patient Portal Instructions sb4 - Leadership Thank You Letter sb4 Signatures: Dispatcher [employer] EDMart Chamorro MD MD rn Calderon, Audri RN RN aa5 Bailey Rankin PA-C PA-C sb4 Corrections: (The following items were deleted from the chart) 10:43 10:34 Home Meds: glimepiride 2 mg Oral tablet every morning; aa5 von5
--- NOTE | 2025-08-08 11:41 | ER ---
Nurse's Notes [facility] Name: Lorena Canas Age: 85 yrs Sex: Female : 1940 Arrival Date: 08/08/2025 Time: 10:20 Bed 8 Private MD: Diagnosis: Fall on same level, unspecified;Forehead hematoma and laceration Presentation: 08/08 10:22 Coronavirus screen: At this time, the client does not indicate any symptoms associated [facility] with coronavirus-19. Ebola Screen: Patient denies travel to an Ebola-affected area in the 21 days before illness onset. Initial Sepsis Screen: Does the patient meet any 2 criteria? No. Patient's initial sepsis screen is negative. Does the patient have a suspected source of infection? No. Patient's initial sepsis screen is negative. Risk Assessment: Do you want to hurt yourself or someone else? Unable to obtain. Onset of symptoms was August 08, 2025. Transition of care: patient was received from another setting of care (long-term care facility), [facility] (assisted living) in [place], [place]. 10:22 Acuity: RHONDA 3 aa5 10:22 Method Of Arrival: EMS: [facility] aa5 10:22 Chief complaint: EMS states: Mechanical fall, fell forward from sitting position. aa5 Negative LOC. Hematoma noted to forehead. 10:22 Care prior to arrival: Glucose check: 153. aa5 10:22 Mechanism of Injury: Fall out of chair. Trauma event details: Injury occurred in the [address], Injury occurred: at home. Trauma Activation: Not Applicable Physician: ED Physician; Name: ; Notified At: ; Arrived At: Physician: General Surgeon; Name: ; Notified At: ; Arrived At: Physician: Radiology; Name: ; Notified At: ; Arrived At: Physician: Respiratory; Name: ; Notified At: ; Arrived At: Physician: Lab; Name: ; Notified At: ; Arrived At: Historical: - Allergies: 10:22 Enalapril; cough; aa5 10:22 PENICILLINS; Rash; aa5 - Home Meds: 10:34 amlodipine 5 mg tablet daily [Active]; aspirin 81 mg Oral tablet daily [Active]; aa5 divalproex 250 mg oral Tablet, Extended Release 24 hr daily [Active]; ferrous sulfate 325 mg (65 mg iron) Oral tablet daily [Active]; furosemide 40 mg Oral tablet daily [Active]; galantamine 16 mg Oral Capsule every morning [Active]; Lantus U-100 Insulin 100 unit/mL Sub-Q solution 35 units daily [Active]; losartan 50 mg Oral tablet daily [Active]; metformin 500 mg oral tablet 1.5 tabs 2 times per day [Active]; potassium chloride 10 mEq oral tablet, extended release daily [Active]; pravastatin 20 mg oral tablet daily [Active]; - PMHx: 10:22 Dementia; diabetes mellitus; Hypertensive disorder; osteomyelitis; urinary tract aa5 infection; Depressive disorder; Cellulitis of left great toe; PVD; Alzheimer's disease; Spondylosis; - PSHx: 10: GALLBLADDER; hysterectomy; aa5 - Immunization history:: Adult Immunizations unknown. - Infectious Disease History:: Denies. - Social history:: Smoking status: Patient denies any tobacco usage or history of. Screenin: [facility] ED Fall Risk Assessment (Adult) History of falling in the last 3 months, aa5 including since admission Yes- single mechanical fall (1 pt) Confusion or Disorientation Yes (5 pts) Intoxicated or Sedated Impaired Gait Mobility Assist Device Used Altered Elimination Score/Fall Risk Level 3 or more points = High Risk Oriented to surroundings, Maintained a safe environment, Educated pt \T\ family on fall prevention, incl call for assistance when getting out of bed, Assessed \T\ reinforced patient's understanding of fall precautions. Abuse screen: No signs of abuse noted. Nutritional screening: No deficits noted. Tuberculosis screening: No symptoms or risk factors identified. Primary Survey: 10: NO uncontrolled hemorrhage observed. A: The client is awake and alert. The airway is aa5 patent. Breathing/Chest: Spontaneous respiratory effort, equal unlabored respirations, breath sounds clear bilaterally, regular pattern, symmetrical chest rise and fall. Circulation: No external hemorrhage present. Regular and strong central pulse, skin warm/dry/normal color. Disability Client is alert. Exposure/Environment: A warming method has been applied: A warm blanket has been provided to the patient. Secondary Survey: 10:22 HEENT: Head Other Hematoma noted to right side of forehead. Gastrointestinal: No aa5 deficits noted. : No deficits noted. Musculoskeletal: No deficits noted. Injury Description: Skin tears sustained to palmar aspect of left forearm. Assessment: 10:22 General: Appears uncomfortable, Behavior is calm, cooperative. Pain: Complains of pain aa5 in forehead and left FA Unable to use pain scale. Does not appear to understand pain scale. Neuro: Level of Consciousness is awake, obeys commands, confused, Oriented to person. EENT: No signs and/or symptoms were reported regarding the EENT system. Cardiovascular: Patient's skin is warm and dry. Respiratory: Airway is patent Respiratory effort is even, unlabored, Respiratory pattern is regular, symmetrical. GI: No signs and/or symptoms were reported involving the gastrointestinal system. : No signs and/or symptoms were reported regarding the genitourinary system. Derm: Skin is pink, warm \T\ dry. Skin tear noted to left FA, abrasion noted to left knee. Hematoma with purple bruising and small superficial laceration noted to right side of forehead. Musculoskeletal: Range of motion: intact in all extremities. 11:53 Reassessment: Patient appears in no apparent distress at this time. Patient and/or iw family updated on plan of care and expected duration. Pain level reassessed. report given to [facility] nurse, will call daughter for transport. Vital Signs: 10:22 BP 122 / 57; Pulse 74; Resp 18 S; Temp 97.8(TE); Pulse Ox 100% on R/A; aa5 11:22 BP 147 / 50; Pulse 63; Resp 16 S; Pulse Ox 100% on R/A; aa5 [place] Coma Score: 10:22 Eye Response: spontaneous(4). Motor Response: obeys commands(6). Verbal Response: aa5 confused(4). Total: 14. 11:22 Eye Response: spontaneous(4). Motor Response: obeys commands(6). Verbal Response: aa5 confused(4). Total: 14. Trauma Score (Adult): 10:22 Eye Response: spontaneous(1); Verbal Response: confused(1); Motor Response: obeys aa5 commands(2); Systolic BP: > 89 mm Hg(4); Respiratory Rate: 10 to 29 per min(4); [place] Score: 14; Trauma Score: 12 11:22 Eye Response: spontaneous(1); Verbal Response: confused(1); Motor Response: obeys aa5 commands(2); Systolic BP: > 89 mm Hg(4); Respiratory Rate: 10 to 29 per min(4); [place] Score: 14; Trauma Score: 12 ED Course: 10:20 Patient arrived in ED. iw 10:22 Brit Phelps, RN is Primary Nurse. aa5 10:22 Arm band placed on Patient placed in an exam room, on a stretcher. aa5 10:22 Patient has correct armband on for positive identification. Bed in low position. Call aa5 light in reach. Side rails up X2. Pulse ox on. NIBP on. 10:24 Bailey Rankin PA-C is PHCP. sb4 10:24 Mart Jensen MD is Attending Physician. sb4 10:25 Triage completed. aa5 10:33 Thermoregulation: warm blanket given to patient. aa5 11:01 Head C Spine MPR Wo Con CT In Process Unspecified. EDMS 11:01 Facial Bones W/O Con CT In Process Unspecified. EDMS 11:54 Assist provider with laceration repair on right side of forehead that was between 2.6 iw to 7.5 cm using Dermabond. Set up tray. Performed by Bailey Rankin PA-C Patient tolerated well. Patient did not have IV access during this emergency room visit. Administered Medications: No medications were administered Outcome: 11:40 Discharge ordered by . sb4 12:14 Patient left the ED. iw Signatures: Dispatcher [employer] Linnette Maya RN RN iw Brit Phelps RN RN Bailey Valencia PA-C PA-C sb4 Corrections: (The following items were deleted from the chart) 10:34 10:22 Derm: Skin is pink, warm \T\ dry. Skin tear noted to left FA, abrasion noted to aa5 left knee. Hematoma with purple bruising and small superficial laceration noted to left side of forehead aa5 10:43 10:34 Home Meds: glimepiride 2 mg Oral tablet every morning; aa5 aa5
[2025-08-08 12:19] VITALS: TEMP 97.8; O2SAT 100
[2025-08-08 12:20] VITALS: BP 147/50
== END 2025-08-08 12:14 | disposition home or self-care (01) ==
LOC: ER 10:20
DX: S01.81XA Laceration without foreign body of other part of head, initial encounter (principal); W18.30XA Fall on same level, unspecified, initial encounter; Y92.099 Unspecified place in other non-institutional residence as the place of occurrence of the external cause; E11.9 Type 2 diabetes mellitus without complications; I10 Essential (primary) hypertension; G30.9 Alzheimer's disease, unspecified; F02.80 Dementia in other diseases classified elsewhere, unspecified severity, without behavioral disturbance, psychotic disturbance, mood disturbance, and anxiety; Z88.0 Allergy status to penicillin; Z88.8 Allergy status to other drugs, medicaments and biological substances
CPT/HCPCS: 12051; 70450; 70486; 72125; 76377; 99283

== ENCOUNTER 2025-08-15 00:03 | Inpatient (IN) | payer OTHER ==
[2025-08-15] MEDS ORDERED: FENTANYL CITR 100 MCG/2 ML ONE (00:51)
[2025-08-15] MEDS ORDERED: ONDANSETRON 4 MG/2 ML VIAL ONE (00:51)
[2025-08-15 01:36] LABS: PT Prothrombin Time 13.3 SECONDS (10-13.0); Protime INR 1.18
[2025-08-15 01:40] LABS: Influenza A Ag Negative; Influenza B Ag Negative; SARS-CoV-2 Antigen Rapid Res Negative (Negative)
[2025-08-15 01:51] LABS: ALT/SGPT 17.0 U/L (13-56); AST/SGOT 22.0 U/L (15-37); Albumin 2.7 g/dL (3.4-5.0); Albumin/Globulin Ratio 0.7 (1.1-1.8); Alkaline Phosphatase 66.0 U/L (45-117); Anion Gap 13.7 mEq/L (5.0-15.0); BUN Blood Urea Nitrogen 35.0 mg/dL (7-18); Bilirubin Indirect, Calculated 0.2 mg/dL (0.2-0.8); Globulin 3.9 g/dL (2.3-3.5); Glucose Level 207.0 mg/dL (74-106); Magnesium 1.4 mg/dL (1.6-2.4); NT PRO-BNP 265.0 pg/mL (<450); Potassium 3.7 mEq/L (3.5-5.1); Troponin High Sensitivity 12.6 pg/mL (<58.9)
[2025-08-15 02:40] LABS: Absolute Lymphocytes (CBC) 1.3 K/uL (0.7-4.9); Hematocrit 29.1 % (36.0-45.0); Hemoglobin 10.1 g/dL (12.0-15.0); MCH 30.2 pg (27.0-35.0); MCHC 34.7 g/dL (32.0-36.0); MCV 87.0 fL (80-100); MPV 8.7 fL (7.6-11.3); Nucleated RBC Absolute Count 0.0 (0-0); Nucleated Red Blood Cells % 0.0 % (0-0); RBC Red Blood Cell Count 3.35 M/uL (3.86-4.86); White Blood Count 10.60 thou/uL (4.3-10.9)
--- NOTE | 2025-08-15 03:14 | EDPHYS ---
Physician Documentation [facility] Name: Lorena Canas Age: 85 yrs Sex: Female : 1940 Arrival Date: 08/15/2025 Time: 00:03 Bed 20 Private MD: ED Physician Michael Bernabe HPI: 08/15 00:20 This 85 yrs old Female presents to ER via Unassigned with complaints of fall sp4 at [facility] . 06:04 85-year-old male presents with acute fall, found on the floor at formerly [facility] facility, sp4 not able to provide full history secondary to dementia. Seems to complain of left shoulder pain.. Historical: - Allergies: 00:33 Enalapril; cough; bm8 00:33 PENICILLINS; Rash; bm8 - Home Meds: 00:33 amlodipine 5 mg tablet daily [Active]; aspirin 81 mg Oral tablet daily [Active]; bm8 divalproex 250 mg Oral Tablet daily [Active]; FeroSul 325 mg (65 mg iron) Oral tablet daily [Active]; ferrous sulfate 325 mg (65 mg iron) Oral tablet daily [Active]; furosemide 40 mg Oral tablet daily [Active]; galantamine 16 mg Oral capsule every morning [Active]; glimepiride 4 mg Oral tablet every morning [Active]; Lantus U-100 Insulin 100 unit/mL Sub-Q solution 35 units daily [Active]; losartan 50 mg Oral tablet daily [Active]; metformin 500 mg Oral tablet 1.5 tabs 2 times per day [Active]; potassium chloride 10 mEq Oral tablet daily [Active]; Pravachol Oral 20 mg nightly [Active]; pravastatin 20 mg Oral tablet daily [Active]; quetiapine 50 mg Oral tablet 3 times per day [Active]; Vitamin B-12 1 Oral tablet daily [Active]; Vitamin C 500 mg Oral tablet daily [Active]; Vitamin D3 25 mcg (1 Oral tablet daily [Active]; - PMHx: 00:33 Alzheimer's disease; Cellulitis of left great toe; Dementia; depressive disorder; bm8 diabetes mellitus; Hypertensive disorder; osteomyelitis; PVD; spondylosis; urinary tract infection; - PSHx: 00:33 GALLBLADDER; hysterectomy; bm8 - Immunization history:: Adult Immunizations up to date. - Infectious Disease History:: Denies. - Social history:: Smoking status: Patient denies any tobacco usage or history of. - Family history:: not pertinent. ROS: 06:04 Constitutional: Negative for fever, chills, and weight loss, positive for left shoulder sp4 pain, positive for acute fall, positive for generalized weakness, 06:04 All other systems are negative, Exam: 06:04 Constitutional: Elderly female, appears physically deconditioned, appears to have mild sp4 to moderate dementia. Follows basic commands. Head/Face: Normocephalic, atraumatic. Eyes: Pupils equal round and reactive to light, extra-ocular motions intact. Lids and lashes normal. Conjunctiva and sclera are not injected. Cornea within normal limits. Periorbital areas with no swelling, redness, or edema. ENT: Nares patent. No nasal discharge, no septal abnormalities noted. Tympanic membranes are normal and external auditory canals are clear. Oropharynx with no redness, swelling, or masses, exudates, or evidence of obstruction, uvula midline. Mucous membranes moist. Neck: Trachea midline, no thyromegaly or masses palpated, and no cervical lymphadenopathy. Supple, full range of motion without nuchal rigidity, or vertebral point tenderness. Chest/axilla: Normal chest wall appearance and motion. Nontender with no deformity. No lesions are appreciated. Cardiovascular: Regular rate and rhythm with a normal S1 and S2. No gallops, murmurs, or rubs. No pulse deficits. Respiratory: Lungs have equal breath sounds bilaterally, clear to auscultation and percussion. No rales, rhonchi or wheezes noted. No increased work of breathing, no retractions or nasal flaring. Abdomen/GI: Soft, with normal bowel sounds. No distension or tympany. No guarding or rebound. No evidence of tenderness throughout. Back: No spinal tenderness. No costovertebral tenderness. Skin: Warm, dry with normal turgor. Normal color with no rashes, no lesions, and no evidence of cellulitis. MS/ Extremity: Pulses equal, no cyanosis. Neurovascular intact. Full, normal range of motion. Neuro: Awake and alert, GCS 15, oriented to person, place, Cranial nerves II-XII grossly intact. Motor strength 5/5 in all extremities. Sensory grossly intact. 06:04 ECG was reviewed by the Attending Physician. Vital Signs: 00:03 BP 109 / 55; Pulse 74; Resp 17; Temp 98.3; Pulse Ox 100% ; Weight 63.96 kg; Height 5 bm8 ft. 6 in. ; Pain 7/10; 01:16 BP 95 / 83; Pulse 73; Resp 17; Temp 98.3; Pulse Ox 99% ; Pain 3/10; bm8 01:38 BP 127 / 54; Pulse 69; Resp 17; Temp 98.3; Pulse Ox 99% ; Pain 4/10; bm8 04:39 BP 99 / 58; Pulse 57; Resp 17; Temp 98.3; Pulse Ox 99% ; Pain 0/10; zm 05:46 BP 93 / 52; Pulse 57; Resp 15; Temp 98.3; Pulse Ox 97% on R/A; Pain 0/10; bm8 00:03 Body Mass Index 22.76 (63.96 kg, 167.64 cm) bm8 00:03 Pain Scale: Adult bm8 01:16 Pain Scale: Adult bm8 01:38 Pain Scale: Adult bm8 04:39 Pain Scale: Adult zm 05:46 Pain Scale: Adult bm8 NIH Stroke Scale Scores: 06:04 NIHSS Score: 0 sp4 [place] Coma Score: 01:16 Eye Response: spontaneous(4). Motor Response: obeys commands(6). Verbal Response: bm8 oriented(5). Total: 15. 01:38 Eye Response: to voice(3). Motor Response: obeys commands(6). Verbal Response: bm8 oriented(5). Total: 14. 04:39 Eye Response: to voice(3). Motor Response: obeys commands(6). Verbal Response: zm confused(4). Total: 13. 05:46 Eye Response: to voice(3). Motor Response: obeys commands(6). Verbal Response: bm8 confused(4). Total: 13. 06:04 Eye Response: spontaneous(4). Motor Response: obeys commands(6). Verbal Response: sp4 confused(4). Total: 14. MDM: 00:19 Medical Screening Exam initiated sp4 03:04 ED course: COMPARISON: No relevant prior studies available. FINDINGS: CHEST: LUNGS AND sp4 PLEURAL SPACES: Unremarkable. No mass. No consolidation. No significant effusion. No pneumothorax. HEART: No cardiomegaly. No pericardial effusion. ABDOMEN: LIVER: Homogeneous without focal mass. GALLBLADDER AND BILE DUCTS: The gallbladder is surgically absent. PANCREAS: The pancreas is atrophic. No ductal dilation. SPLEEN: Unremarkable. ADRENALS: Unremarkable. No mass. KIDNEYS AND URETERS: Bilateral nonspecific perinephric stranding is present. There is no hydronephrosis or hydroureter of either kidney. No obstructing renal or ureteral calculus is seen. STOMACH AND BOWEL: The stomach is distended with fluid and air. The small bowel is normal in caliber. Stool is present throughout the colon. There is no mucosal thickening or evidence of obstruction. PELVIS: APPENDIX: The appendix is not definitively visualized. However, there are no inflammatory changes seen at the expected location of the appendix to suggest appendicitis. BLADDER: The bladder is not well-distended. REPRODUCTIVE: The patient is status post hysterectomy. CHEST, ABDOMEN and PELVIS: INTRAPERITONEAL SPACE: Unremarkable. No significant fluid collection. No free air. BONES/JOINTS: There is no acute fracture of the visualized axial and appendicular skeleton. The vertebral body heights and alignment are maintained. The bones are osteopenic. Degenerative change at L4-L5 and L5-S1 with vacuum phenomenon is noted. SOFT TISSUES: Surgical clips are present within left upper quadrant. VASCULATURE: Atherosclerosis of the vasculature throughout the abdomen and pelvis is noted. No aortic aneurysm. LYMPH NODES: Unremarkable. No enlarged lymph nodes. IMPRESSION: No evidence of solid organ injury or traumatic bony findings on this noncontrast CT of the chest, abdomen, and pelvis.. ED course: TECHNIQUE: Multiple helical axial tomographic images were obtained of the head and cervical spine without intravenous contrast. This exam was performed according to our departmental dose-optimization program, which includes automated exposure control, adjustment of the mA and/or kV according to patient size and/or use of iterative reconstruction technique. FINDINGS: There is no acute intracranial hemorrhage. Generalized brain volume loss is demonstrated. There is patchy hypoattenuation in the cerebral white matter suggesting chronic microvascular ischemic changes. Areas of encephalomalacia in the left frontoparietal region again noted. Basal ganglia calcifications again demonstrated. No mass. No midline shift. Mild prominence of the ventricular system is felt to be related to volume loss. Marsh-white matter differentiation is maintained. Paranasal sinuses are clear. Mastoid air cells and middle ear spaces are clear. Orbits and orbital contents are unremarkable. Nonspecific opacification of the left external auditory canal demonstrated. No acute calvarial fracture. No evidence of an acute fracture of the cervical spine. Vertebral body heights and disc spaces appear maintained. Multilevel vertebral osteophyte formation demonstrated. Facet joint degenerative changes are present. There is multilevel neuroforaminal and central canal narrowing. No obvious traumatic subluxation. Carotid calcifications are present. IMPRESSION: 1. No acute intracranial process. 2. No evidence of an acute fracture of the cervical spine. 3. Cervical spine degenerative changes. Electronically signed by: Ivan Pitts MD 08/15/2025 02:17 AM. ED course: IMPRESSION: 1. No acute intracranial process. 2. No evidence of an acute fracture of the cervical spine. 3. Cervical spine degenerative changes.. 06:07 Differential diagnosis: intra-abdominal injury, closed head injury, cardiac contusion, sp4 extremity fracture, C spine fracture, L spine fracture. Data reviewed: vital signs, nurses notes, EMS record, old medical records, lab test result(s), EKG, radiologic studies, CT scan. Consideration of Admission/Observation Patient was admitted/placed on observation. Escalation of care including admission/observation considered. Management of patient was discussed with the following: Hospitalist: Discussed with admitting team. 08/15 00:19 Order name: Basic Metabolic Panel; Complete Time: 02:08/15 00:19 Order name: CBC with Diff; Complete Time: 03:05 08/15 00:19 Order name: LFT's; Complete Time: 02:08/15 00:19 Order name: Magnesium; Complete Time: 02:07 08/15 00:19 Order name: NT PRO-BNP; Complete Time: 02:08/15 00:19 Order name: PT-INR; Complete Time: 02:07 08/15 00:19 Order name: Troponin HS; Complete Time: 02:07 08/15 00:19 Order name: CK; Complete Time: 02:08/15 00:19 Order name: UA Rfx Demar Cult if indicated; Complete Time: 04:18 08/15 00:19 Order name: COVID-19 Ag + Flu A+B Ag; Complete Time: 02:07 08/15 00:18 Order name: CT Head Brain wo Cont; Complete Time: 04:18 sp4 08/15 00:18 Order name: CT C Spine; Complete Time: 04:18 sp4 08/15 00:18 Order name: CT Chest Abdomen Pelvis W/O Contrast; Complete Time: 04:18 sp4 08/15 00:19 Order name: EKG; Complete Time: 00:19 sp4 08/15 04:04 Order name: Physical Therapy Consult EDMS 08/15 00:19 Order name: Cardiac monitoring; Complete Time: : sp4 08/15 00:19 Order name: EKG - Nurse/Tech; Complete Time: : sp4 08/15 00:19 Order name: IV Saline Lock; Complete Time: : sp4 08/15 00:19 Order name: Labs collected and sent; Complete Time: : sp4 08/15 00:19 Order name: O2 Per Protocol; Complete Time: : sp4 08/15 00:19 Order name: O2 Sat Monitoring; Complete Time: :4 EC:10 Rate is 70 beats/min. Rhythm is regular, Sinus Rhythm. QRS [place] is Normal. [place] interval sp4 is prolonged. QRS interval is normal. QT interval is normal. No Q waves. T waves are Normal. No ST changes noted. Clinical impression: No evidence of ischemia. Interpreted by me. Reviewed by me. Administered Medications: 01:15 Drug: Ondansetron IVP 4 mg IVP once; over 2 minutes Route: IVP; Site: right antecubital;bm8 01:40 Follow up: Response: No adverse reaction bm8 01:16 Drug: fentaNYL (PF) IVP 25 mcg IVP once Route: IVP; Site: right antecubital; bm8 01:40 Follow up: Response: No adverse reaction bm8 04:38 Drug: Rocephin - Rocephin (cefTRIAXone) IVPB 1 grams IVPB once over 30 mins; (mix in 50 zm mL NS) Route: IVPB; Infused Over: 30 mins; Site: right antecubital; 05:47 Follow up: Response: No adverse reaction; IV Status: Completed infusion bm8 04:39 Not Given (Other Intervention Used): [id number] mg IM once zm Disposition: 08/16 00:25 Chart complete. sp4 Disposition Summary: 08/15/25 03:13 Hospitalization Ordered Notes: Hospitalization Status: Inpatient Admission sp4 Provider: Zhang Jensen sp4 Location: Telemetry/MedSurg (Inpatient) sp4 Condition: Stable sp4 Problem: new sp4 Symptoms: have improved sp4 Bed/Room Type: Standard sp4 Room Assignment: 405(08/15/25 05:53) cg Diagnosis - Acute agitated delirium, acute fall at home, dementia with behavioral disturbances, sp4 acute generalized weakness - Acute renal insufficiency sp4 Forms: - Medication Reconciliation Form sp4 - SBAR form sp4 - Leadership Thank You Letter sp4 NIH Stroke Scale - NIH Stroke Score Date: 08/15/2025 Time: 06:04 Total Score = 0 10. Dysarthria (speech clarity - read or repeat words) - 0(Normal) 11. Extinction and Inattention (visual/tactile/auditory/spatial/personal) - 0(No abnormality) 1a. Level of Consciousness (LOC) - 0(Alert) 1b. Level of Consciousness (LOC) (Month \T\ Age) - 0(Both) 1c. LOC Commands (Open \T\ Closes Eyes/Reconcilement Clerk) - 0(Both) 2. Best Gaze (Lateral Gaze Paresis) - 0(Normal) 3. Visual Field Loss - 0(No visual loss) 4. Facial Palsy - 0(Normal) 5a. Left Arm: Motor (10-second hold) - 0(No drift) 5b. Right Arm: Motor (10-second hold) - 0(No drift) 6a. Left Leg: Motor (5-second hold - always test supine) - 0(No drift) 6b. Right Leg: Motor (5-second hold - always test supine) - 0(No drift) 7. Limb Ataxia (finger/nose \T\ heel/lara - test with eyes open) - 0(Absent) 8. Sensory Loss (pinprick arms/legs/face) - 0(Normal) 9. Best Language: Aphasia (description/naming/reading) - 0(No aphasia) Initials: sp4 Signatures: Dispatcher [employer] Meli Matta, RN Eden Calderón RN RN zm Potepalov, Sergey, MD MD sp4 Vicki Betts [facility] Esau Tatum, RN RN bm8 Corrections: (The following items were deleted from the chart) 09/27 01:23 00:19 Freeman ordered. sp4 bm8 05:38 03:13 sp4 kmf 05:53 05:38 214 kmf cg
--- NOTE | 2025-08-15 03:14 | ER ---
Nurse's Notes [facility] Name: Lorena Canas Age: 85 yrs Sex: Female : 1940 Arrival Date: 08/15/2025 Time: 00:03 Bed 20 Private MD: Diagnosis: Acute agitated delirium, acute fall at home, dementia with behavioral disturbances, acute generalized weakness;Acute renal insufficiency Presentation: 08/15 00:03 Chief complaint: EMS states: Called for pt that has fallen. staff had already picked bm8 her up and placed her back in a chair. Pt has fallen multiple times in the past month. 00:03 Coronavirus screen: At this time, the client does not indicate any symptoms associated bm8 with coronavirus-19. Ebola Screen: Patient negative for fever greater than or equal to 101.5 degrees Fahrenheit, and additional compatible Ebola Virus Disease symptoms Patient denies exposure to infectious person. Patient denies travel to an Ebola-affected area in the 21 days before illness onset. No symptoms or risks identified at this time. Initial Sepsis Screen: Does the patient meet any 2 criteria? No. Patient's initial sepsis screen is negative. Does the patient have a suspected source of infection? No. Patient's initial sepsis screen is negative. Risk Assessment: Do you want to hurt yourself or someone else? Patient reports no desire to harm self or others. Onset of symptoms is unknown. 00:03 Method Of Arrival: EMS: [facility] bm8 00:03 Acuity: RHONDA 3 bm8 00:03 Care prior to arrival: Medication(s) given: droperidol 1.25 mg IV initiated. 20 GA, in bm8 the right antecubital area. Triage Assessment: 00:03 General: Appears distressed, uncomfortable, Behavior is calm, cooperative, appropriate bm8 for age. Pain: Complains of pain in generalized pain Pain currently is 7 out of 10 on a pain scale. Unable to use pain scale. Patient is disoriented. Does not appear to understand pain scale. EENT: No deficits noted. No signs and/or symptoms were reported regarding the EENT system. Neuro: Level of Consciousness is awake, obeys commands, confused, Oriented to person, needs reorientation to time and place and situation. Cardiovascular: Denies chest pain, Heart tones S1 S2 present Capillary refill < 3 seconds in bilateral fingers Patient's skin is warm and dry. Respiratory: Airway is patent Respiratory effort is even, unlabored, Respiratory pattern is regular, symmetrical, Breath sounds are clear bilaterally. GI: No deficits noted. No signs and/or symptoms were reported involving the gastrointestinal system. : No deficits noted. No signs and/or symptoms were reported regarding the genitourinary system. Derm: Bruising that is dark purple, brown, green, yellow, pt has multiple spots of bruising all healing at different stages of healing due to multiple falls over past several weeks. Musculoskeletal: Circulation, motion, and sensation intact. Capillary refill < 3 seconds, in bilateral fingers. Range of motion: limited in left shoulder Reports pain in generalized Pain is 7 out of 10 on a pain scale. Historical: - Allergies: 00:33 Enalapril; cough; bm8 00:33 PENICILLINS; Rash; bm8 - Home Meds: 00:33 amlodipine 5 mg tablet daily [Active]; aspirin 81 mg Oral tablet daily [Active]; bm8 divalproex 250 mg Oral Tablet daily [Active]; FeroSul 325 mg (65 mg iron) Oral tablet daily [Active]; ferrous sulfate 325 mg (65 mg iron) Oral tablet daily [Active]; furosemide 40 mg Oral tablet daily [Active]; galantamine 16 mg Oral capsule every morning [Active]; glimepiride 4 mg Oral tablet every morning [Active]; Lantus U-100 Insulin 100 unit/mL Sub-Q solution 35 units daily [Active]; losartan 50 mg Oral tablet daily [Active]; metformin 500 mg Oral tablet 1.5 tabs 2 times per day [Active]; potassium chloride 10 mEq Oral tablet daily [Active]; Pravachol Oral 20 mg nightly [Active]; pravastatin 20 mg Oral tablet daily [Active]; quetiapine 50 mg Oral tablet 3 times per day [Active]; Vitamin B-12 1 Oral tablet daily [Active]; Vitamin C 500 mg Oral tablet daily [Active]; Vitamin D3 25 mcg (1 Oral tablet daily [Active]; - PMHx: 00:33 Alzheimer's disease; Cellulitis of left great toe; Dementia; depressive disorder; bm8 diabetes mellitus; Hypertensive disorder; osteomyelitis; PVD; spondylosis; urinary tract infection; - PSHx: 00:33 GALLBLADDER; hysterectomy; bm8 - Immunization history:: Adult Immunizations up to date. - Infectious Disease History:: Denies. - Social history:: Smoking status: Patient denies any tobacco usage or history of. - Family history:: not pertinent. Screenin:16 [facility] ED Fall Risk Assessment (Adult) History of falling in the last 3 months, bm8 including since admission Yes- fall prone (multiple falls) (3 pts) Confusion or Disorientation Yes (5 pts) Intoxicated or Sedated No (0 pts) Impaired Gait Yes (1 pt) Mobility Assist Device Used Yes (1 pt) Altered Elimination No (0 pt) Score/Fall Risk Level 3 or more points = High Risk Oriented to surroundings, Maintained a safe environment, Educated pt \\T\\ family on fall prevention, incl call for assistance when getting out of bed, Assessed \\T\\ reinforced patient's understanding of fall precautions, Hourly rounding (assess needs \\T\\ fall precautionary measures) done, Used ambulatory aids as needed (educated on \\T\\ assisted with), Used gait belt as appropriate Implemented a Fall Risk Plan of Care. Abuse screen: Denies threats or abuse. Denies injuries from another. Nutritional screening: No deficits noted. Tuberculosis screening: No symptoms or risk factors identified. Assessment: 01:16 Reassessment: Patient appears in no apparent distress at this time. No changes from bm8 previously documented assessment. Patient and/or family updated on plan of care and expected duration. Pain level reassessed. 01:23 Reassessment: attempted to start liu on pt. pt continuously stated "no no no no, bm8 please don't I don't want that." provider informed. 01:38 Reassessment: Patient appears in no apparent distress at this time. Patient and/or bm8 family updated on plan of care and expected duration. Pain level reassessed. Patient states feeling better. Pain: Pain currently is 4 out of 10 on a pain scale. 04:39 Reassessment: Patient appears in no apparent distress at this time. Patient and/or zm family updated on plan of care and expected duration. Pain level reassessed. Patient denies pain at this time. Patient states feeling better. Patient states symptoms have improved. 05:46 Reassessment: Patient appears in no apparent distress at this time. Patient and/or bm8 family updated on plan of care and expected duration. Pain level reassessed. Patient states feeling better. Patient states symptoms have improved. Vital Signs: 00:03 BP 109 / 55; Pulse 74; Resp 17; Temp 98.3; Pulse Ox 100% ; Weight 63.96 kg; Height 5 bm8 ft. 6 in. ; Pain 7/10; 01:16 BP 95 / 83; Pulse 73; Resp 17; Temp 98.3; Pulse Ox 99% ; Pain 3/10; bm8 01:38 BP 127 / 54; Pulse 69; Resp 17; Temp 98.3; Pulse Ox 99% ; Pain 4/10; bm8 04:39 BP 99 / 58; Pulse 57; Resp 17; Temp 98.3; Pulse Ox 99% ; Pain 0/10; zm 05:46 BP 93 / 52; Pulse 57; Resp 15; Temp 98.3; Pulse Ox 97% on R/A; Pain 0/10; bm8 00:03 Body Mass Index 22.76 (63.96 kg, 167.64 cm) bm8 00:03 Pain Scale: Adult bm8 01:16 Pain Scale: Adult bm8 01:38 Pain Scale: Adult bm8 04:39 Pain Scale: Adult zm 05:46 Pain Scale: Adult bm8 Ching Coma Score: 01:16 Eye Response: spontaneous(4). Motor Response: obeys commands(6). Verbal Response: bm8 oriented(5). Total: 15. 01:38 Eye Response: to voice(3). Motor Response: obeys commands(6). Verbal Response: bm8 oriented(5). Total: 14. 04:39 Eye Response: to voice(3). Motor Response: obeys commands(6). Verbal Response: zm confused(4). Total: 13. 05:46 Eye Response: to voice(3). Motor Response: obeys commands(6). Verbal Response: bm8 confused(4). Total: 13. 06:04 Eye Response: spontaneous(4). Motor Response: obeys commands(6). Verbal Response: sp4 confused(4). Total: 14. NIH Stroke Scale Scores: 06:04 NIHSS Score: 0 sp4 ED Course: 00:03 Arm band placed on right wrist. bm8 00:05 Patient arrived in ED. kmf 00:16 Dimitri Sharma PA-C is PHCP. cp 00:16 Michael Bernabe MD is Attending Physician. cp 00:28 Esau Tatum, RN is Primary Nurse. bm8 00:33 Triage completed. bm8 00:53 CT Head Brain wo Cont In Process Unspecified. EDMS 00:53 CT C Spine In Process Unspecified. EDMS 00:53 CT Chest Abdomen Pelvis W/O Contrast In Process Unspecified. EDMS 01:16 Patient has correct armband on for positive identification. Placed in gown. Bed in low bm8 position. Call light in reach. Side rails up X 1. Client placed on continuous cardiac and pulse oximetry monitoring. NIBP monitoring applied. sales representative raw fibers on. Pulse ox on. NIBP on. Door closed. Noise minimized. Lights dimmed. Warm blanket given. Pillow given. Verbal reassurance given. Head of bed elevated. 01:16 No provider procedures requiring assistance completed. Initial lab(s) drawn, by vt, bm8 sent to lab. EKG done, by ED staff, reviewed by Michael Bernabe MD. Maintain EMS IV. Dressing intact. Good blood return noted. Site clean \\T\\ dry. Gauge \\T\\ site: 20g rac. Flushed with 10 mL NS IV is patent, with fluids infusing freely, with good blood return, Flushed right antecubital. Patient maintains SpO2 saturation greater than 95% on room air. 03:11 Zhang Jensen MD is Hospitalizing Provider. sp4 05:46 Provided Education on: need for admission. bm8 05:46 Patient admitted, IV remains in place. bm8 Administered Medications: 01:15 Drug: Ondansetron IVP 4 mg IVP once; over 2 minutes Route: IVP; Site: right antecubital;bm8 01:40 Follow up: Response: No adverse reaction bm8 01:16 Drug: fentaNYL (PF) IVP 25 mcg IVP once Route: IVP; Site: right antecubital; bm8 01:40 Follow up: Response: No adverse reaction bm8 04:38 Drug: Rocephin - Rocephin (cefTRIAXone) IVPB 1 grams IVPB once over 30 mins; (mix in 50 zm mL NS) Route: IVPB; Infused Over: 30 mins; Site: right antecubital; 05:47 Follow up: Response: No adverse reaction; IV Status: Completed infusion bm8 04:39 Not Given (Other Intervention Used): mg IM once zm Medication: 01:16 VIS not applicable for this client. bm8 Outcome: 03:13 Decision to Hospitalize by Provider. sp4 05:46 Admitted to Tele accompanied by nurse, accompanied by tech, via stretcher, room 405, bm8 with chart, 05:46 Condition: stable 05:46 Instructed on the need for admit, Demonstrated understanding of instructions, follow-up care, medications, 06:30 Patient left the ED. bm8 NIH Stroke Scale - NIH Stroke Score Date: 08/15/2025 Time: 06:04 Total Score = 0 10. Dysarthria (speech clarity - read or repeat words) - 0(Normal) 11. Extinction and Inattention (visual/tactile/auditory/spatial/personal) - 0(No abnormality) 1a. Level of Consciousness (LOC) - 0(Alert) 1b. Level of Consciousness (LOC) (Month \\T\\ Age) - 0(Both) 1c. LOC Commands (Open \\T\\ Closes Eyes/Scuba Diving Teacher) - 0(Both) 2. Best Gaze (Lateral Gaze Paresis) - 0(Normal) 3. Visual Field Loss - 0(No visual loss) 4. Facial Palsy - 0(Normal) 5a. Left Arm: Motor (10-second hold) - 0(No drift) 5b. Right Arm: Motor (10-second hold) - 0(No drift) 6a. Left Leg: Motor (5-second hold - always test supine) - 0(No drift) 6b. Right Leg: Motor (5-second hold - always test supine) - 0(No drift) 7. Limb Ataxia (finger/nose \\T\\ heel/lara - test with eyes open) - 0(Absent) 8. Sensory Loss (pinprick arms/legs/face) - 0(Normal) 9. Best Language: Aphasia (description/naming/reading) - 0(No aphasia) Initials: sp4 Signatures: Dispatcher [employer] EDCT Dimitri Sharma PA-C PA-C cp Martinez, Zaina, RN RN Michael Cash MD MD sp4 Vicki Betts Esau Tatum, RN RN bm8 Corrections: (The following items were deleted from the chart) 05:55 05:46 Admitted to Med/surg accompanied by nurse, accompanied by tech, via bm8 stretcher, room 214, with chart, bm8
--- NOTE | 2025-08-15 03:34 | RAD REPORT ---
EXAM DESCRIPTION: Head Brain Wo Cont (accession [id number]), C Spine Wo Con (accession [id number]) CLINICAL HISTORY: CONFUSED COMPARISON: CT head and cervical spine August 08, 2025. TECHNIQUE: Multiple helical axial tomographic images were obtained of the head and cervical spine without intrav enous contrast. This exam was performed according to our departmental dose-optimization program, which includes automated exposure control, adjustment of the mA and/or kV according to patient size a nd/or use of iterative reconstruction technique. FINDINGS: There is no acute intracranial hemorrhage. Generalized brain volume loss is demonstrated. There is pa tchy hypoattenuation in the cerebral white matter suggesting chronic microvascular ischemic changes. Areas of encephalomalacia in the left frontoparietal region again noted. Basal ganglia calci fications again demonstrated. No mass. No midline shift. Mild prominence of the ventricular system is felt to be related to volume loss. Marsh-white matter differentiation is maintained. Paranasal sinuses are clear. Mastoid air cells and middle ear spaces are clear. Orbits and orbital co ntents are unremarkable. Nonspecific opacification of the left external auditory canal demonstrated. No acute calvarial fracture. No evidence of an acute fracture of the cervical spine. Vertebral body heights and disc spaces appear maintained. Multilevel vertebral osteophyte formation demonstrated. Facet joint degenerative changes are present. There is multilevel neuroforaminal and central canal narrowing. No obvious traum atic subluxation. Carotid calcifications are present. IMPRESSION: 1. No acute intracranial process. 2. No evidence of an acute fracture of the cervical spine. 3. Cervical spine degenerative changes. Electronically signed by: Ivan Pitts MD 08/15/2025 02:[address] [facility] Due to temporary technical issues with the PACS/PROnoise reporting system, reports are being nasra d by the in-house radiologist without review as a courtesy to ensure prompt reporting the interpreting radiologist is fully responsible for the content of the report. Transcribed Date/Time: 08/15/2025 3:33 AM
--- NOTE | 2025-08-15 03:34 | RAD REPORT ---
EXAM DESCRIPTION: Head Brain Wo Cont (accession [id number]), C Spine Wo Con (accession [id number]) CLINICAL HISTORY: CONFUSED COMPARISON: CT head and cervical spine August 08, 2025. TECHNIQUE: Multiple helical axial tomographic images were obtained of the head and cervical spine without intrav enous contrast. This exam was performed according to our departmental dose-optimization program, which includes automated exposure control, adjustment of the mA and/or kV according to patient size a nd/or use of iterative reconstruction technique. FINDINGS: There is no acute intracranial hemorrhage. Generalized brain volume loss is demonstrated. There is pa tchy hypoattenuation in the cerebral white matter suggesting chronic microvascular ischemic changes. Areas of encephalomalacia in the left frontoparietal region again noted. Basal ganglia calci fications again demonstrated. No mass. No midline shift. Mild prominence of the ventricular system is felt to be related to volume loss. Marsh-white matter differentiation is maintained. Paranasal sinuses are clear. Mastoid air cells and middle ear spaces are clear. Orbits and orbital co ntents are unremarkable. Nonspecific opacification of the left external auditory canal demonstrated. No acute calvarial fracture. No evidence of an acute fracture of the cervical spine. Vertebral body heights and disc spaces appear maintained. Multilevel vertebral osteophyte formation demonstrated. Facet joint degenerative changes are present. There is multilevel neuroforaminal and central canal narrowing. No obvious traum atic subluxation. Carotid calcifications are present. IMPRESSION: 1. No acute intracranial process. 2. No evidence of an acute fracture of the cervical spine. 3. Cervical spine degenerative changes. Electronically signed by: Ivan Pitts MD 08/15/2025 02:17 AM [facility] Due to temporary technical issues with the PACS/SuccessTSM reporting system, reports are being nasra d by the in-house radiologist without review as a courtesy to ensure prompt reporting the interpreting radiologist is fully responsible for the content of the report. Transcribed Date/Time: 08/15/2025 3:34 AM
--- NOTE | 2025-08-15 03:34 | RAD REPORT ---
EXAM: CT Chest, Abdomen and Pelvis Without Intravenous Contrast CLINICAL HISTORY: The patient is 85 years old and is Female; fall acute TECHNIQUE: Axial computed tomography images of the chest, abdomen and pelvis without intravenous contrast. S agittal and coronal reformatted images were created and reviewed. This CT exam was performed using one or more of the following dose reduction techniques: automated exposure control, adjustmen t of the mA and/or kV according to patient size, and/or use of iterative reconstruction technique. COMPARISON: No relevant prior studies available. FINDINGS: CHEST: LUNGS AND PLEURAL SPACES: Unremarkable. No mass. No consolidation. No significant effusion. No pneumothorax. HEART: No cardiomegaly. No pericardial effusion. ABDOMEN: LIVER: Homogeneous without focal mass. GALLBLADDER AND BILE DUCTS: The gallbladder is surgically absent. PANCREAS: The pancreas is atrophic. No ductal dilation. SPLEEN: Unremarkable. ADRENALS: Unremarkable. No mass. KIDNEYS AND URETERS: Bilateral nonspecific perinephric stranding is present. There is no hydronep hrosis or hydroureter of either kidney. No obstructing renal or ureteral calculus is seen. STOMACH AND BOWEL: The stomach is distended with fluid and air. The small bowel is normal in kyaw andrei. Stool is present throughout the colon. There is no mucosal thickening or evidence of obstruction. PELVIS: APPENDIX: The appendix is not definitively visualized. However, there are no inflammatory changes seen at the expected location of the appendix to suggest appendicitis. BLADDER: The bladder is not well-distended. REPRODUCTIVE: The patient is status post hysterectomy. CHEST, ABDOMEN and PELVIS: INTRAPERITONEAL SPACE: Unremarkable. No significant fluid collection. No free air. BONES/JOINTS: There is no acute fracture of the visualized axial and appendicular skeleton. The v ertebral body heights and alignment are maintained. The bones are osteopenic. Degenerative change at L4-L5 and L5-S1 with vacuum phenomenon is noted. SOFT TISSUES: Surgical clips are present within left upper quadrant. VASCULATURE: Atherosclerosis of the vasculature throughout the abdomen and pelvis is noted. No aortic aneurysm. LYMPH NODES: Unremarkable. No enlarged lymph nodes. IMPRESSION: No evidence of solid organ injury or traumatic bony findings on this noncontrast CT of the chest, a bdomen, and pelvis. Electronically signed by: Effie Luis MD 08/15/2025 02:29 AM [facility] Due to temporary technical issues with the PACS/Powerscribe reporting system, reports are being nasra d by the in-house radiologist without review as a courtesy to ensure prompt reporting the interpreting radiologist is fully responsible for the content of the report. Transcribed Date/Time: 08/15/2025 3:34 AM
[2025-08-15 03:53] LABS: Sqamous Epithelial <5 /HPF (None Seen); Urine Crystals Unidentified Few /HPF (None Seen); Urine Culture Reflex Order REFLEXED; Urine Microscopic Reflex YN ORDER UMIC; Urine WBC Clump Many /HPF (None Seen)
[2025-08-15] MEDS: Magnesium Sulfate 2gm IVPB 2 G/50 ML BAG IV ONE (03:59)
[2025-08-15] MEDS ORDERED: ONDANSETRON 4 MG/2 ML VIAL IV PRN (04:02)
[2025-08-15] MEDS ORDERED: NA CHLORIDE 0.9% 100 ML ONE (04:32)
[2025-08-15] MEDS ORDERED: CEFTRIAXONE 1000 MG/VIAL ONE (04:32)
--- NOTE | 2025-08-15 04:33 | P.HP ---
Certification for Inpatient Patient admitted to: Observation With expected LOS: <2 Midnights Patient will require the following post-hospital care: Other (halfway.) Practitioner: I am a practitioner with admitting privileges, knowledge of patient current condition, hospital course, and medical plan of care. Services: Services provided to patient in accordance with Admission requirements found in Title 42 Section 412.3 of the Code of Federal Regulations Patient History Date of Service: 08/15/25 Reason for admission: Multiple falls, weakness, SILVINO. History of Present Illness: Patient is an 85-year-old female with past medical history of essential hypertension, seizure disorder, Alzheimer's disease, cellulitis left great toe, dementia, depressive disorder, type 2 diabetes mellitus, essential hypertension, osteomyelitis, PVD, spondylosis, UTI, brought to the ER by EMS after sustaining a fall at home resulting to right orbital area abrasions and bruise. While in the ER, patient was very agitated, with altered mental status secondary to worsening Alzheimer's and dementia. On admission assessment, patient is not able to provide information at this time due to altered mentation, H&P is based on report received from ER Dr. Johnson, and from patient EMR. Patient BUN 35, creatinine 1.44, GFR 35, glucose 207, magnesium 1.4. Course in ER: (1) CT head and cervical spine. Impression: No acute intracranial process. No evidence of an acute fracture of the cervical spine. Cervical spine degenerative changes. (2) CT chest, abdomen, and pelvis without intravenous contrast. Impression: No evidence of solid organ injury or traumatic bony findings on this noncontrast CT of the chest, abdomen, and pelvis. Allergies No Known Allergies Allergy (Unverified 03/06/23 03:45) Home Medications: Losartan Potassium 1 tab PO DAILY 09/15/22 Pravastatin Sodium 1 tab PO DAILY 09/15/22 Aspirin [Aspirin EC 81 MG] 81 mg PO DAILY 03/06/23 Cholecalciferol (Vitamin D3) [Vitamin D3] 1,000 unit PO DAILY 03/06/23 Cyanocobalamin (Vitamin B-12) [Vitamin B12] 2,500 mcg PO DAILY 03/06/23 Galantamine HBr [Galantamine ER] 8 mg PO DAILY 03/06/23 Metformin ER [Glucophage ER*] 2 tab PO DAILY 03/06/23 Sitagliptin Phosphate [Januvia] 2 tab PO DAILY 03/06/23 - Past Medical/Surgical History Diabetic: Yes -: DM -: Hypercholesterolemia. -: Essential hypertension. -: Seizure disorder. -: Cholecystectomy -: Appendectomy -: Hysterectomy - Family History Family History: Reviewed- Non-Contributory - Social History Smoking Status: Unknown if ever smoked (Due to altered mental status.) Alcohol use: No CD- Drugs: No Caffeine use: Yes Place of Residence: Home (halfway home) Review of Systems is unable to be obtained (Altered mental status.) Physical Examination - Physical Exam General: Oriented x1, Demented, Confused, Other (Agitated at times.) HEENT: Mucous membr. moist/pink, Other (Right occipital area abrasion with bruise secondary to fall.), Sclerae nonicteric Neck: 2+ carotid pulse no bruit, No LAD, Without JVD or thyroid abnormality Respiratory: Clear to auscultation bilaterally, Normal air movement Cardiovascular: No edema, Normal pulses, Normal S1 S2, No gallops, No rubs, No murmurs Capillary refill: <2 Seconds Gastrointestinal: Normal bowel sounds, Soft and benign, W/out hepatomegaly, No ascites, No tenderness, No masses, No rebound, No guarding Musculoskeletal: No clubbing, No swelling, No contractures, Other (Right orbital area abrasions with bruise secondary to fall.) Integumentary: Other (Bruise to right orbital area) Neurological: Other (Unable to fully assess at this time due to patient altered mental status secondary to dementia.), Dementia Lymphatics: No axilla or inguinal lymphadenopathy - Studies Laboratory Data (last 24 hrs) 08/15/25 08/15/25 08/15/25 01:06 01:06 01:06 WBC 10.60 Hgb 10.1 L Hct 29.1 L Plt Count 245 PT 13.3 H INR 1.18 Sodium 135 L Potassium 3.7 BUN 35 H Creatinine 1.44 H Glucose 207 H Magnesium 1.4 L Total Bilirubin 0.4 AST 22 ALT 17 Alkaline Phosphatase 66 Female Exam - Breasts Breasts: Normal configuration, Normal contours, Symmetrical Assessment and Plan - Plan Patient is a 85-year-old female brought to the ER due to worsening mentation, weakness, and fall. (1)Fall, generalized body weakness, worsening mentation. According to report received, states patient have been having multiple falls at home, with increased generalized body weakness. -Consult physical therapy to evaluate and treat on endurance, strengthening, and ambulation. -Order for bed alarm. -Will continue patient Alzheimer's and dementia medications when reconciled. -Consult neurologist Dr. Hernandez. (2)Chronic type 2 diabetes mellitus. -Continue home glimepiride 4 mg p.o. daily. -ACHS with moderate sliding scale. -Order for A1c. (3)Chronic essential hypertension. -Continue home medication amlodipine 5 mg p.o. daily. -Continue home medication losartan 50 mg p.o. daily. (4)Chronic hypercholesteremia. -Continue home medication pravastatin 20 mg p.o. daily. (5)To resume patient ordered home medications after reconciled. Discharge Plan: Home Plan to discharge in: 48 Hours - Advance Directives Does patient have a Living Will: No Does patient have a Durable POA for Healthcare: No - Code Status/Comfort Care Code Status Assessed: No (Altered mental status.) Code Status: Full Code Critical Care: No Time Spent Managing Pts Care (In Minutes): 55
[2025-08-15 06:42] VITALS: O2SAT 97
[2025-08-15] MEDS: INSULIN REGULAR (HUMAN) 100 UNIT/ML SQ SCH (07:30)
[2025-08-15] MEDS ORDERED: [UNRECOGNIZED DRUG - OTHER] PO PRN (07:33)
[2025-08-15] MEDS ORDERED: SODIUM BICARBONATE PO PRN (07:33)
[2025-08-15] MEDS ORDERED: ACETAMINOPHEN 325 MG TABLET PO PRN (07:33)
[2025-08-15] MEDS ORDERED: POTASSIUM CHLORIDE PO PRN (07:33)
[2025-08-15] MEDS ORDERED: SODIUM CHLORIDE PO PRN (07:33)
[2025-08-15 07:34] VITALS: BMI 22.2
[2025-08-15] MEDS ORDERED: GLIMEPIRIDE 2 MG TABLET PO SCH (08:00)
[2025-08-15] MEDS ORDERED: LOSARTAN POTASSIUM 50 MG TABLET PO SCH (09:00)
[2025-08-15] MEDS: VITAMIN D 1000 UNIT TAB PO SCH (09:00)
[2025-08-15] MEDS: GALANTAMINE HBR 16 MG PO SCH (09:00)
[2025-08-15] MEDS ORDERED: AMLODIPINE 5 MG TAB PO SCH (09:00)
[2025-08-15] MEDS ORDERED: HOME MED 1 EA UNK (Pravastatin Sodium [Pravastatin Sodium] 20 MG Tablet) PO SCH (09:00)
[2025-08-15] MEDS: ASPIRIN EC 81 MG TAB PO SCH (10:54)
[2025-08-15] MEDS: HEPARIN 5000 UNIT/ML 1 ML VIAL SQ SCH (10:54)
[2025-08-15] MEDS: NA CHLORIDE 0.9% 1,000 ML IV SCH (10:54)
[2025-08-15] MEDS: ASCORBIC ACID 500 MG TABLET PO SCH (10:56)
[2025-08-15] MEDS: CYANOCOBALAMIN 1,000 MCG TAB PO SCH (10:56)
[2025-08-15] MEDS: DIVALPROEX ER 250 MG TAB PO SCH (10:56)
[2025-08-15] MEDS: ACETAMINOPHEN 325 MG TABLET PO PRN (15:24)
--- NOTE | 2025-08-15 17:06 | P.PN ---
Date of Service: 08/15/25 Patient was admitted overnight for generalized weakness and fall. She was found to have SILVINO. She is clinically dry and with profound orthostatic vitals and evidence of SILVINO. She has been started on IV fluid infusion. Her blood pressure medications have been held due to borderline blood pressure. She will need to stay here for additional volume repletion, PT/OT. Her clinical status will be changed to inpatient
[2025-08-15] MEDS: ATORVASTATIN 10 MG TAB PO SCH (20:09)
[2025-08-15] MEDS: GALANTAMINE 4 MG TAB PO SCH (20:09)
[2025-08-15] MEDS: QUETIAPINE 25 MG TAB PO SCH (20:09)
[2025-08-15] MEDS: LORazepam 2 MG/ML VIAL IV ONE (23:07)
[2025-08-16] MEDS: NA CHLORIDE 0.9% 1,000 ML IV SCH (03:07)
[2025-08-16 06:34] LABS: Absolute Lymphocytes (CBC) 2.3 K/uL (0.7-4.9); Hematocrit 27.9 % (36.0-45.0); Hemoglobin 9.8 g/dL (12.0-15.0); MCH 30.7 pg (27.0-35.0); MCHC 35.0 g/dL (32.0-36.0); MCV 87.8 fL (80-100); MPV 8.0 fL (7.6-11.3); Nucleated RBC Absolute Count 0.0 (0-0); Nucleated Red Blood Cells % 0.0 % (0-0); RBC Red Blood Cell Count 3.18 M/uL (3.86-4.86); White Blood Count 9.80 thou/uL (4.3-10.9)
[2025-08-16 07:07] LABS: ALT/SGPT 17.0 U/L (13-56); AST/SGOT 21.0 U/L (15-37); Albumin 2.3 g/dL (3.4-5.0); Albumin/Globulin Ratio 0.7 (1.1-1.8); Alkaline Phosphatase 64.0 U/L (45-117); Anion Gap 9.5 mEq/L (5.0-15.0); BUN Blood Urea Nitrogen 21.0 mg/dL (7-18); Globulin 3.4 g/dL (2.3-3.5); Glucose Level 124.0 mg/dL (74-106); Magnesium 1.3 mg/dL (1.6-2.4); Potassium 3.5 mEq/L (3.5-5.1)
--- NOTE | 2025-08-16 12:53 | P.PN ---
Date of Service: 08/16/25 Subjective: Drowsy this morning, received Ativan overnight for agitation no other acute events overnight ROS: 10 point ROS as noted above, otherwise negative Physical exam GEN: Drowsy, NAD HEENT: Normal conjunctiva, sclera anicteric CV: Regular rate and rhythm, no edema Pulm: Nonlabored respirations on room air ABD: Soft, nontender, nondistended MSK: No joint tenderness Integumentary: No rashes Neuro: Normal speech, normal affect Vitals reviewed Assessment: Multiple falls Orthostatic hypotension Diabetes mellitus type 3-lfq-wukodhs-dependent Hypertension Hyperlipidemia Alzheimer's dementia Acute kidney injury Plan: Multiple falls Orthostatic hypotension Started on IV fluids yesterday Continue gentle IV fluids Repeat orthostatic vital signs and PT tomorrow Possible discharge back to assisted living facility if orthostatics are improved and patient is ambulatory Diabetes mellitus type 6-bmp-vkbhjzo-dependent ACHS Accu-Chek, sign scale insulin Hypertension Hyperlipidemia Alzheimer's dementia Continue home medications Acute kidney injury Improved, monitor renal function daily DVT PPX: Heparin subcu Code status: Full code Time Spent Managing Pts Care (In Minutes): 35 <Elias Casas - Last Filed: 08/16/25 12:51> I have personally seen and evaluated the patient seen by Elias Casas PROPERTY INSURANCE CLAIMS EXAMINER. I have reviewed the nurse practitioner's documentation, findings, assessment, and plan of care. I agree with the progress note as written and have made any necessary additions or clarifications <Wai Haywood - Last Filed: 08/16/25 15:59>
[2025-08-17 04:51] VITALS: TEMP 98.1
[2025-08-17 07:10] LABS: Absolute Lymphocytes (CBC) 2.5 K/uL (0.7-4.9); Hematocrit 29.4 % (36.0-45.0); Hemoglobin 10.3 g/dL (12.0-15.0); MCH 30.5 pg (27.0-35.0); MCHC 34.9 g/dL (32.0-36.0); MCV 87.4 fL (80-100); MPV 7.9 fL (7.6-11.3); Nucleated RBC Absolute Count 0.0 (0-0); Nucleated Red Blood Cells % 0.0 % (0-0); RBC Red Blood Cell Count 3.36 M/uL (3.86-4.86); White Blood Count 9.90 thou/uL (4.3-10.9)
[2025-08-17 07:51] LABS: ALT/SGPT 16.0 U/L (13-56); AST/SGOT 21.0 U/L (15-37); Albumin 2.5 g/dL (3.4-5.0); Albumin/Globulin Ratio 0.7 (1.1-1.8); Alkaline Phosphatase 57.0 U/L (45-117); Anion Gap 9.5 mEq/L (5.0-15.0); BUN Blood Urea Nitrogen 13.0 mg/dL (7-18); Globulin 3.6 g/dL (2.3-3.5); Glucose Level 116.0 mg/dL (74-106); Magnesium 1.4 mg/dL (1.6-2.4); Potassium 3.5 mEq/L (3.5-5.1)
[2025-08-17 08:15] VITALS: BP 147/65
--- NOTE | 2025-08-17 13:43 | P.DS ---
Admission Date: 08/15/25 Discharge Date: 08/17/25 Reason for Admission: Multiple falls, weakness, SILVINO. Brief History of Present Illness: Patient is an 85-year-old female with past medical history of essential hypertension, seizure disorder, Alzheimer's disease, cellulitis left great toe, dementia, depressive disorder, type 2 diabetes mellitus, essential hypertension, osteomyelitis, PVD, spondylosis, UTI, brought to the ER by EMS after sustaining a fall at home resulting to right orbital area abrasions and bruise. While in the ER, patient was very agitated, with altered mental status secondary to worsening Alzheimer's and dementia. On admission assessment, patient is not able to provide information at this time due to altered mentation, H&P is based on report received from ER Dr. Johnson, and from patient EMR. Patient BUN 35, creatinine 1.44, GFR 35, glucose 207, magnesium 1.4. Course in ER: (1) CT head and cervical spine. Impression: No acute intracranial process. No evidence of an acute fracture of the cervical spine. Cervical spine degenerative changes. (2) CT chest, abdomen, and pelvis without intravenous contrast. Impression: No evidence of solid organ injury or traumatic bony findings on this noncontrast CT of the chest, abdomen, and pelvis. Hospital Course: Assessment: Multiple falls Orthostatic hypotension Diabetes mellitus type 6-wlg-ltyijwg-dependent Hypertension Hyperlipidemia Alzheimer's dementia Acute kidney injury Patient was initially admitted to hospital for multiple falls, weakness and acute kidney injury. Her creatinine on admission was 1.4, this rapidly improved and is 0.69 today, renal function improved with IV fluids/gentle hydration. Additionally she is noted to have orthostatic vital signs, after IV fluids this has resolved as well. Patient is ambulatory with PT with assistance. She has confusion at baseline/dementia so difficult to obtain an ROS but her urine did return with possible urinary tract infection, previous urinary cultures reviewed, patient will be prescribed cefdinir for 7 days for treatment of suspected urinary tract infection. Otherwise patient stable for discharge to her assisted living facility with fall precautions. Recommend changing positions slowly, ambulation with assistance only and complete course of oral antibiotics for suspected urinary tract infection. <Elias Casas - Last Filed: 08/17/25 13:42> Admission Date: 08/15/25 Discharge Date: 08/17/25 Hospital Course: Patient was seen and examined. Events of the last 24 hours have been noted. Spoke with with JAMI regarding patient's clinical picture after evaluating and examining the patient independently. I performed a substantial part of the MDM during this patient's care today. I personally made or approved the documented management plan and acknowledge its risk of complications. I agree with the findings and documentation provided in the JAMI's notes. <Vibha Savage - Last Filed: 08/24/25 00:44> Disposition: ROUTINE DISCHARGE Discharge Condition: GOOD Vital Signs/Physical Exam: Temp Pulse Resp BP Pulse Ox 98.1 F 66 14 147/65 H 99 08/17/25 08:00 08/17/25 08:00 08/17/25 08:00 08/17/25 08:00 08/17/25 08:00 General: Alert, In no apparent distress, Oriented x1 HEENT: Atraumatic, PERRLA, EOMI Neck: Supple, JVD not distended Respiratory: Clear to auscultation bilaterally, Normal air movement Cardiovascular: Regular rate/rhythm, Normal S1 S2 Gastrointestinal: Normal bowel sounds, No tenderness Musculoskeletal: No tenderness Integumentary: No rashes Neurological: Normal speech, Normal affect Laboratory Data at Discharge: WBC 9.90 thou/uL (4.3-10.9) 08/17/25 06:37 Hgb 10.3 g/dL (12.0-15.0) L 08/17/25 06:37 Hct 29.4 % (36.0-45.0) L 08/17/25 06:37 Plt Count 255 thou/uL (152-406) D 08/17/25 06:37 PT 13.3 SECONDS (10-13.0) H 08/15/25 01:06 INR 1.18 08/15/25 01:06 Sodium 140 mEq/L (136-145) 08/17/25 06:37 Potassium 3.5 mEq/L (3.5-5.1) 08/17/25 06:37 BUN 13 mg/dL (7-18) 08/17/25 06:37 Creatinine 0.69 mg/dL (0.55-1.02) 08/17/25 06:37 Glucose 116 mg/dL (74-106) H 08/17/25 06:37 Magnesium 1.4 mg/dL (1.6-2.4) L 08/17/25 06:37 Total Bilirubin 0.4 mg/dL (0.2-1.0) 08/17/25 06:37 AST 21 U/L (15-37) 08/17/25 06:37 ALT 16 U/L (13-56) 08/17/25 06:37 Alkaline Phosphatase 57 U/L (45-117) 08/17/25 06:37 <Elias Casas - Last Filed: 08/17/25 13:42> Vital Signs/Physical Exam: Temp Pulse Resp BP Pulse Ox 98.1 F 66 14 147/65 H 99 08/17/25 08:00 08/17/25 08:00 08/17/25 08:00 08/17/25 08:00 08/17/25 08:00 Laboratory Data at Discharge: WBC 9.90 thou/uL (4.3-10.9) 08/17/25 06:37 Hgb 10.3 g/dL (12.0-15.0) L 08/17/25 06:37 Hct 29.4 % (36.0-45.0) L 08/17/25 06:37 Plt Count 255 thou/uL (152-406) D 08/17/25 06:37 PT 13.3 SECONDS (10-13.0) H 08/15/25 01:06 INR 1.18 08/15/25 01:06 Sodium 140 mEq/L (136-145) 08/17/25 06:37 Potassium 3.5 mEq/L (3.5-5.1) 08/17/25 06:37 BUN 13 mg/dL (7-18) 08/17/25 06:37 Creatinine 0.69 mg/dL (0.55-1.02) 08/17/25 06:37 Glucose 116 mg/dL (74-106) H 08/17/25 06:37 Magnesium 1.4 mg/dL (1.6-2.4) L 08/17/25 06:37 Total Bilirubin 0.4 mg/dL (0.2-1.0) 08/17/25 06:37 AST 21 U/L (15-37) 08/17/25 06:37 ALT 16 U/L (13-56) 08/17/25 06:37 Alkaline Phosphatase 57 U/L (45-117) 08/17/25 06:37 <Vibha Savage - Last Filed: 08/24/25 00:44> Diet: Regular Activity: Fall precautions Time spent managing pt's care (in minutes): 35 <Elias Casas - Last Filed: 08/17/25 13:42> <Vibha Savage - Last Filed: 08/24/25 00:44> Home Medications: Acetaminophen 650 mg PO Q4H PRN 08/15/25 Amlodipine [Norvasc*] 5 mg PO DAILY 08/15/25 Ascorbic Acid [Vitamin C*] 500 mg PO DAILY 08/15/25 Aspirin [Aspirin EC 81 MG] 81 mg PO DAILY 08/15/25 Cholecalciferol (Vitamin D3) [Vitamin D3] 1,000 unit PO DAILY 08/15/25 Cyanocobalamin (Vitamin B-12) [Vitamin B12] 1,000 mcg PO DAILY 08/15/25 Divalproex ER [Depakote *ER] 250 mg PO DAILY 08/15/25 Furosemide 40 mg PO DAILY 08/15/25 Galantamine HBr [Galantamine ER] 16 mg PO DAILY 08/15/25 Glimepiride 2 mg PO DAILY 08/15/25 Ibuprofen 600 mg PO Q12H PRN 08/15/25 Insulin Glargine,Hum.rec.anlog [Lantus Solostar] 35 units SQ DAILY 08/15/25 Losartan Potassium 50 mg PO DAILY 08/15/25 Metformin HCl [Glucophage*] 750 mg PO BID 08/15/25 Potassium Chloride 10 meq PO DAILY 08/15/25 Pravastatin Sodium 20 mg PO DAILY 08/15/25 Quetiapine Fumarate [Seroquel] 50 mg PO BEDTIME 08/15/25 Sodium Chloride/Nahco3/KCl/Peg [Peg 3350-Electrolyte Solution] 17 gm PO DAILY PRN 08/15/25 Cefdinir [Cefdinir*] 300 mg PO BID 7 Days #14 cap 08/17/25 New Medications: Cefdinir [Cefdinir*] 300 mg PO BID 7 Days #14 cap Physician Discharge Instructions: Patient was initially admitted to hospital for multiple falls, weakness and acute kidney injury. Her creatinine on admission was 1.4, this rapidly improved and is 0.69 today, renal function improved with IV fluids/gentle hydration. Additionally she is noted to have orthostatic vital signs, after IV fluids this has resolved as well. Patient is ambulatory with PT with assistance. She has confusion at baseline/dementia so difficult to obtain an ROS but her urine did return with possible urinary tract infection, previous urinary cultures reviewed, patient will be prescribed cefdinir for 7 days for treatment of arellano spected urinary tract infection. Otherwise patient stable for discharge to her assisted living facility with fall precautions. Recommend changing positions slowly, ambulation with assistance only and complete course of oral antibiotics for suspected urinary tract infection. Followup: Mohit Young MD [Primary Care Provider] -
== END 2025-08-17 15:44 | disposition home or self-care (01) | DRG 683 ==
LOC: ER 00:03 → ERHOLD 03:55 → 4TH 06:27 → OBSVTOIN 17:06 → 4TH 08-16 15:38
PROVIDERS: ADMIT Internal Medicine; ATTEND Hospitalist
PROC: 02HV33Z Insertion of Infusion Device into Superior Vena Cava, Percutaneous Approach (ICD-10-PCS; principal; 2025-08-16)
DX: N17.9 Acute kidney failure, unspecified (principal); F02.811 Dementia in other diseases classified elsewhere, unspecified severity, with agitation; F05 Delirium due to known physiological condition; N39.0 Urinary tract infection, site not specified; G30.9 Alzheimer's disease, unspecified; I95.1 Orthostatic hypotension; I10 Essential (primary) hypertension; N28.9 Disorder of kidney and ureter, unspecified; E78.00 Pure hypercholesterolemia, unspecified; E11.51 Type 2 diabetes mellitus with diabetic peripheral angiopathy without gangrene; S00.211A Abrasion of right eyelid and periocular area, initial encounter; R29.6 Repeated falls; Z88.0 Allergy status to penicillin; Z79.4 Long term (current) use of insulin; Z88.8 Allergy status to other drugs, medicaments and biological substances; Z91.81 History of falling; Z79.82 Long term (current) use of aspirin; Z11.52 Encounter for screening for COVID-19; Z79.84 Long term (current) use of oral hypoglycemic drugs; Z79.899 Other long term (current) drug therapy; Z90.710 Acquired absence of both cervix and uterus; Z90.49 Acquired absence of other specified parts of digestive tract; W18.30XA Fall on same level, unspecified, initial encounter; Y93.9 Activity, unspecified; Y92.199 Unspecified place in other specified residential institution as the place of occurrence of the external cause; Y99.9 Unspecified external cause status
CPT/HCPCS: 36415; 70450; 71250; 72125; 74176; 80048; 80053; 80076; 81001; 82550; 82947; 83735; 83880; 84484; 85025; 85610; 87077; 87086; 87088; 87186; 87428; 93005; 96365; 96375; 97110; 97116; 97162; 97530; 99285; G0378; J0696; J1644; J1815; J2405; J3010; J7030